=== PATIENT | male | born 1950 | race Caucasian/White ===

== ENCOUNTER 2019-09-03 12:03 | Outpatient (RCR) | payer MEDICARE, SELFPAY ==
[2019-09-03] VITALS (10 sets, daily range): BP systolic 100–128; BP diastolic 65–83; PULSE 91–103; RESP 14–16; TEMP 36.6–37.6; O2SAT 95–100
[2019-09-03 13:38] LABS: Hematocrit 24.1 % (42.0-52.0); Hemoglobin 7.2 g/dL (14.0-18.0)
[2019-09-03] MEDS: ACETAMINOPHEN 325 MG TABLET 650 MG (15:05)
[2019-09-03] MEDS: FUROSEMIDE INJ 40 MG/4 ML VIAL 20 MG IV PUSH (17:40)
== END 2019-12-02 23:59 | disposition home or self-care (01) ==
LOC: ANHCPCTRAN 12:03
PROVIDERS: Visit Provider Family Medicine
DX: D64.9 Anemia, unspecified (principal)
CPT/HCPCS: 36415; 36430; 85014; 85018; 86850; 86900; 86901; 86923; 96374; A9270; J1940; J7050; P9016

== ENCOUNTER 2023-08-02 08:59 | Outpatient (CLI) | payer MEDICARE, SELFPAY ==
--- NOTE | 2023-08-02 11:00 | NEURO_ITS ---
Impression: # Non-diabetic complains of gait dysfunction. 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 # Needle/EMG exam revealed no fibs but decreased motor units. # Clinical correlation recommended. Nerve Conduction Studies Anti Sensory Summary Table Stim Site NR Peak (ms) P-T Amp (?V) Site1 Site2 Delta-P (ms) Dist (cm) Michael (m/s) Left Saphenous Anti Sensory (Ant Med Mall) NO RESPONSE 14cm NR 14cm Ant Med Mall 0.0 Right Saphenous Anti Sensory (Ant Med Mall) NO RESPONSE 14cm NR 14cm Ant Med Mall 0.0 Left Sup Fibular Anti Sensory (Ant Lat Mall) NO RESPONSE 14 cm NR 14 cm Ant Lat Mall 16.0 Right Sup Fibular Anti Sensory (Ant Lat Mall) NO RESPONSE 14 cm NR 14 cm Ant Lat Mall 16.0 Left Sural Anti Sensory (Lat Mall) NO RESPONSE Calf NR Calf Lat Mall 16.0 Right Sural Anti Sensory (Lat Mall) NO RESPONSE Calf NR Calf Lat Mall 16.0 Motor Summary Table Stim Site NR Onset (ms) O-P Amp (mV) Site1 Site2 Delta-0 (ms) Dist (cm) Michael (m/s) Left Peroneal Motor (Vastus Med) Ankle 4.4 0.3 Popit Ankle 8.1 38.0 47 Popit 12.5 0.3 Right Peroneal Motor (Vastus Med) Ankle 4.2 1.2 Popit Ankle 8.9 39.0 44 Popit 13.1 0.9 Left Tibial Motor (Abd Ndiaye Brev) Ankle 4.9 2.2 Knee Ankle 9.6 38.0 40 Knee 14.5 0.9 Right Tibial Motor (Abd Ndiaye Brev) Ankle 4.3 3.9 Knee Ankle 10.1 41.0 41 Knee 14.4 1.5 F Wave Studies NR F-Lat (ms) L-R F-Lat (ms) Left Peroneal (Mrkrs) (EDB) 55.67 1.84 Right Peroneal (Mrkrs) (EDB) 53.83 1.84 Left Tibial (Mrkrs) (Abd Hallucis) 53.50 1.05 Right Tibial (Mrkrs) (Abd Hallucis) 54.55 1.05 EMG Side Muscle Nerve Root Ins Act Fibs Amp Dur Recrt Comment Right AntTibialis Dp Br Fibular L4-5 Nml Nml Nml Nml Nml Right Gastroc Tibial S1-2 Nml Nml Nml Nml Nml Right Fibularis Long Sup Br Fibular L5-S1 Nml Nml Nml Nml Nml Right Flex Dig Long Tibial L5-S2 Nml Nml Nml Nml Nml Right Ext Dig Brev Dp Br Fibular L5, S1 Nml Nml Nml Nml Nml Left AntTibialis Dp Br Fibular L4-5 Nml Nml Nml Nml Nml Left Gastroc Tibial S1-2 Nml Nml Nml Nml Nml Left Fibularis Long Sup Br Fibular L5-S1 Nml Nml Nml Nml Nml Left Flex Dig Long Tibial L5-S2 Nml Nml Nml Nml Nml Left Ext Dig Brev Dp Br Fibular L5, S1 Nml Nml Nml Nml Nml MTDD
== END 2023-08-02 09:00 | disposition home or self-care (01) ==
LOC: ANHNEURO 09:02
PROVIDERS: Visit Provider Podiatrist Foot & Ankle Surgery
DX: G62.9 Polyneuropathy, unspecified (principal)
CPT/HCPCS: 95886; 95911

== ENCOUNTER → 2023-08-28 10:47 | Outpatient (CLI) | payer MEDICARE, SELFPAY ==
--- NOTE | ~2023-08-28 | MR_ITS ---
EXAMINATION: MR cervical spine wo con DATE: 08/28/2023 11:36 INDICATION: Cervical radicular pain. Left neck pain. TECHNIQUE: Magnetic resonance imaging (MRI) of the cervical spine was performed without intravenous c ontrast. COMPARISON: None FINDINGS: There is kyphosis of cervical spine. There are changes of anterior fusion procedure from C4 to C6 with healed interbody bone graft. There is mild chronic anterior wedging of T1 vertebral body. There is moderately decreased disc height at C3-C4 and C6-C7. The spinal cord signal intensity is no rmal. The following disc levels are specifically discussed: C2-C3: There is a central extrusion. There is mild left uncovertebral joint osteoarthritis. There is severe bilateral facet joint osteoarthritis. There is mild right and moderate left neural foraminal s tenosis. There is mild central canal stenosis. C3-C4: The disc is bulging. There is severe bilateral uncovertebral joint osteoarthritis. There is se toni bilateral facet joint osteoarthritis. There is severe bilateral neural foraminal stenosis. There is moderate central canal stenosis. C4-C5: There is moderate bilateral uncovertebral joint hypertrophy. There is no facet joint osteoarth ritis. There is moderate bilateral neural foraminal stenosis. There is no central canal stenosis. C5-C6: There is mild right and severe left uncovertebral joint hypertrophy. There is no facet joint o steoarthritis. There is mild right and moderate left neural foraminal stenosis. There is no central c anal stenosis. C6-C7: The disc is bulging. There is severe bilateral uncovertebral joint osteoarthritis. There is mo derate bilateral facet joint osteoarthritis. There is moderate bilateral neural foraminal stenosis. T here is moderate central canal stenosis. C7-T1: The disc does not extend beyond the endplate margin. There is mild left uncovertebral joint os teoarthritis. There is severe bilateral facet joint osteoarthritis. There is mild right and moderate left neural foraminal stenosis. There is no central canal stenosis. IMPRESSION: 1. Moderate cervical spondylosis. 2. Anterior fusion from C4 to C6. Reviewed, dictated and finalized at location A. OSIVE MAN
--- NOTE | ~2023-08-28 | MR_ITS ---
EXAMINATION: MR lumbar spine wo con DATE: 08/28/2023 11:40 INDICATION: Lumbar radicular pain. TECHNIQUE: Magnetic resonance imaging (MRI) of the lumbar spine was performed without intravenous con trast. Sequences included sagittal T2-weighted FSE, sagittal T2-weighted FS FSE, sagittal T1-weighted FSE, and axial T2-weighted FSE. COMPARISON: None FINDINGS: There is 5 degrees levocurvature of the lumbar spine. There is 3 mm retrolisthesis of L1 on L2 and L2 on L3. Vertebral body heights are normal. There is mildly decreased disc height at T12-L1, L1-L2, L2-L3, and L5-S1. The distal spinal cord signal intensity is normal. The conus medullaris is at L1-L2. The following disc levels are specifically discussed: L1-L2: There is a left central extrusion. There is mild bilateral facet joint osteoarthritis. There i s no neural foraminal stenosis. There is mild central canal stenosis. L2-L3: The disc is bulging. There is severe bilateral facet joint osteoarthritis. There is moderate b ilateral neural foraminal stenosis. There is mild central canal stenosis. L3-L4: The disc does not extend beyond the endplate margin. There is moderate right and mild left fac et joint osteoarthritis. There is mild bilateral neural foraminal stenosis. There is no central canal stenosis. L4-L5: The disc is bulging. There is severe bilateral facet joint osteoarthritis. There is mild right and moderate left neural foraminal stenosis. There is mild central canal stenosis. L5-S1: The disc is bulging. There is severe bilateral facet joint osteoarthritis. There is mild bilat eral neural foraminal stenosis. There is mild central canal stenosis. IMPRESSION: 1. Moderate lumbar spondylosis. Reviewed, dictated and finalized at location A. CLERK
== END ==
PROVIDERS: PCP Nurse Practitioner Family; Visit Provider Nurse Practitioner Family
DX: M47.26 Other spondylosis with radiculopathy, lumbar region (principal); M47.22 Other spondylosis with radiculopathy, cervical region; Z98.1 Arthrodesis status
CPT/HCPCS: 72141; 72148

== ENCOUNTER 2024-10-18 09:43 | Outpatient (CLI) | payer MEDICARE, SELFPAY ==
--- OUTSIDE RECORDS SUMMARY | 2024-10-18 10:23 | XMS_ITS | CONTINUITY OF CARE DOCUMENT ---
Author Name wilbert atkins Address Unknown Organization [facility] Address [address] [place] [address] Phone [phone] Care Team Providers Care Nipple Threader Name Role Phone Archie Jimenez MD Unavailable Davy Joseph MD Unavailable [phone] Davy Joseph MD Unavailable [phone] PROBLEMS Condition Status Date Provider Notes Exposure to SARS-associated coronavirus active Sugar Hector Leg mass-R upper calf active Cristina Tanksle y Mixed hyperlipidemia active Meseret Cooper Long-Term Medications-High Risk active Meseret Cooper Diabetes mellitus active Meseret Cooper PVD active Archie Jimenez MD Cardiac murmur active Lawrence Maldonado MD Preoperative cardiovascular examination completed - Darion Chen MD ? SLEEP APNEA completed - Darion Chen MD Venous insufficiency, chronic active Archie Jimenez MD Shortness of breath active Archie Jimenez MD Dizziness active Heydi Waldron [employer]PER[employer] Edema active Archie Jimenez MD Aortic stenosis, severe active Archie Jimenez MD ENCOUNTERS Date Type Provider Location Encounter Diag nosis - In-person encounter Office Visit Archie Jimenez MD [facility] - In-person encounter Office Visit Archie Jimenez MD [facility] Aortic stenosis, severe - In-person encounter Office Visit Archie Jimenez MD [facility] - In-person encounter Office Visit Archie Jimenez MD [facility] - In-person encounter Office Visit Archie Jimenez MD [facility] Edema - In-person encounter Office Visit Archie Jimenez MD [facility] Dizziness - In-person encounter Office Visit Archie Jimenez MD [facility] Shortness of breath - In-person encounter Office Visit Archie Jimenez MD [facility] - In-person encounter Office Visit Archie Jimenez MD [facility] - In-person encounter Office Visit Archie Jimenez MD [facility] Venous insufficiency, chronic - In-person encounter Office Visit Archie Jimenez MD [facility] Preoperative cardiovascular examination? SLEEP APNEA - In-person encounter Office Visit Archie Jimenez MD [facility] - In-person encounter Office Visit Archie Jimenez MD [facility] - In-person encounter Office Visit ISABELLE OMALLEY MD [facility] - In-person encounter Office Visit ISABELLE OMALLEY MD [facility] - In-person encounter Office Visit Red Anne [facility] - In-person encounter Office Visit ISABELLE OMALLEY MD [facility] - In-person encounter Office Visit ISABELLE OMALLEY MD [facility] - In-person encounter Office Visit ISABELLE OMALLEY MD [facility] - In-person encounter Office Visit ISABELLE OMALLEY MD [facility] - In-person encounter Office Visit Lawrence Maldonado MD [facility] Cardiac murmur - In-person encounter Office Visit ISABELLE OMALLEY MD [facility] - In-person encounter Office Visit Red Omid [facility] - In-person encounter Office Visit Red Anne [facility] - In-person encounter Office Visit Lanaty Anne [facility] - In-person encounter Office Visit Lanaty Anne [facility] - In-person encounter Office Visit Lanaty Anne [facility] - In-person encounter Office Visit Lanaty Anne [facility] - In-person encounter Office Visit Red Anne [facility] - In-person encounter Office Visit Mihirtatumty Anne [facility] - In-person encounter Office Visit Red Anne [facility] - In-person encounter Office Visit Mihirtatumty Anne [facility] - In-person encounter Office Visit Red Anne [facility] - In-person encounter Office Visit Archie Jimenez MD [facility] PVD VITAL SIGNS Date Observation Value Provider Body Mass Index (Ratio) 26.83 kg/m2 Calixto Jimenez MD blood pressure, diastolic 79 mm[Hg] St pamela [place] blood pressure, systolic 167 mm[Hg] Dale Greenfield oxygen saturation, oximetry 95 % Maine Green[place] pulse rate 87 /min Maine Green[place] respiratory rate E&M 16 /min Maine haley weight E&M 187 [lb_av] Maine [place] height E&M 70 [in_i] Maineemmy Greenfield Body Mass Index (Ratio) 37.30 kg/m2 Calixto Jimenez MD blood pressure, diastolic 70 mm[Hg] Rh greg Lily blood pressure, systolic 117 mm[Hg] Rho ndnahum Bautista oxygen saturation, oximetry 98 % Gabriela Bautista pulse rate 94 /min Gabriela Bautista weight E&M 260 [lb_av] Gabrielanahum Bautista blood pressure, cuff size regular Rh onbety Lily respiratory rate E&M 16 /min Gabrielanahum Bautista height E&M 70 [in_i] Gabriela Bautista blood pressure, diastolic 70 mm[Hg] Cy endy Ortiz blood pressure, systolic 112 mm[Hg] Margarita anil Ortiz pulse rate 55 /min Naz isbell oxygen saturation, oximetry 100 % Naz Ortiz respiratory rate E&M 16 /min Naz Ortiz blood pressure, cuff size regular Cy endy Ortiz height E&M 70 [in_i] Naz Chungbel l temperature site temporal Cristina Tank [facility] temperature E&M 96.9 [degF] Cristina Tanks shireen Body Mass Index (Ratio) 35.87 kg/m2 Calixto Jimenez MD weight E&M 250 [lb_av] Naz Chungbel l blood pressure, diastolic 70 mm[Hg] Cy endy Ortiz blood pressure, systolic 118 mm[Hg] Margarita thia Angel blood pressure, cuff size regular Cy ntthonga Angel pulse rate 72 /min Naz Chungbel l oxygen saturation, oximetry 99 % Naz Ortiz respiratory rate E&M 18 /min Nazanil Ortiz height E&M 70 [in_i] Naz Marrero [place] temperature E&M 97.1 [degF] Cristina iyer Body Mass Index (Ratio) 33.57 kg/m2 Calixto Jimenez MD respiratory rate E&M 16 /min [facility] pulse rate 51 /[facility] 96 [facility], diastolic 78 mm[Hg] Dragan Zavala blood pressure, systolic 118 mm[Hg] Laly durán [facility] weight E&M 234 [lb_av] [facility] blood pressure, resting Yes Lalyr vance [facility] height E&M 70 [in_i] [facility] Body Mass Index (Ratio) 39.83 kg/m2 Calixto Jimenez MD blood pressure, diastolic 77 mm[Hg] Tank Hooperkarlie Jackson blood pressure, systolic 139 mm[Hg] Anna Rahul Manuel Inhaled O2 1 L/min Quan pang oxygen saturation, oximetry 95 % Quan Jackson respiratory rate E&M 20 /min Pearl Jackson pulse rate 72 /min Quan pang weight E&M 277.6 [lb_av] Quan adrian height E&M 70 [in_i] Quan pang Body Mass Index (Ratio) 39.74 kg/m2 Calixto Jimenez MD blood pressure, cuff size regular Ke yenifer Tabares blood pressure, diastolic 60 mm[Hg] Ke rri Raysa blood pressure, systolic 104 mm[Hg] Noel Tabares oxygen saturation, oximetry 93 % Socorro Raysa respiratory rate E&M 18 /min Socorro G megan pulse rate 73 /min Socorro Corkye lder weight E&M 277 [lb_av] Socorro Congjuane lder height E&M 70 [in_i] Socorro Parulewae lder Body Mass Index (Ratio) 39.17 kg/m2 Calixto Jimenez MD blood pressure, cuff size large Ke rri Raysa blood pressure, diastolic 80 mm[Hg] Ke rri Raysa blood pressure, systolic 120 mm[Hg] Noel Tabares oxygen saturation, oximetry 94 % Socorro Tabares respiratory rate E&M 18 /min Socorro guzman pulse rate 71 /min Socorro Jono lder weight E&M 273 [lb_av] Socorro Jono lder height E&M 70 [in_i] Socorro Jono lder Body Mass Index (Ratio) 38.59 kg/m2 Calixto Jimenez MD blood pressure, cuff size large Ke rri Raysa blood pressure, diastolic 70 mm[Hg] Ke rri Raysa blood pressure, systolic 112 mm[Hg] Noel ri Raysa oxygen saturation, oximetry 93 % Socorro Raysa respiratory rate E&M 18 /min Socorro G megan pulse rate 72 /min Socorro Parulnenfe lder weight E&M 269 [lb_av] Socorro Corkye lder height E&M 70 [in_i] Socorro Corkye lder Body Mass Index (Ratio) 39.45 kg/m2 Calixto Jimenez MD blood pressure, cuff size large Miranda Richmond blood pressure, diastolic 70 mm[Hg] Miranda Richmond blood pressure, systolic 130 mm[Hg] Nely Richmond oxygen saturation, oximetry 95 % Cyndie Richmond respiratory rate E&M 16 /min Cyndie Richmond pulse rate 65 /min Cyndie Richmond weight E&M 275 [lb_av] Cyndie Richmond height E&M 70 [in_i] Cyndielexy Richmond Body Mass Index (Ratio) 40.75 kg/m2 Calixto Jimenez MD blood pressure, cuff size large Nj nda Guerrero blood pressure, diastolic 70 mm[Hg] Nj nda Guerrero blood pressure, systolic 123 mm[Hg] [facility] 18 /min Leonora H arper pulse rate 71 /min Leonora Guerrero weight E&M 284 [lb_av] Leonora Guerrero height E&M 70 [in_i] Leonora Guerrero Body Mass Index (Ratio) 41.46 kg/m2 Calixto Jimenez MD blood pressure, diastolic 80 mm[Hg] Da smita Edilberto blood pressure, systolic 116 mm[Hg] Dac ia Edilberto oxygen saturation, oximetry 91 % Aubrie Edilberto respiratory rate E&M 20 /min Aubrie V oss pulse rate 69 /min Aubrie Edilberto weight E&M 289 [lb_av] Aubrie Edilberto height E&M 70 [in_i] Aubrie Edilberto blood pressure, diastolic 76 mm[Hg] Me beth Brizuela blood pressure, systolic 129 mm[Hg] Heena meryl Brizuela Body Mass Index (Ratio) 39.17 kg/m2 Megan Brizuela pulse rate 62 /min Debra Brizuela oxygen saturation, oximetry 95 % Debra Brizuela respiratory rate E&M 16 /min Debra Brizuela weight E&M 273 [lb_av] Debra Brizuela height E&M 70 [in_i] Debra Brizuela blood pressure, diastolic 67 mm[Hg] Driss Quezada RN blood pressure, systolic 125 mm[Hg] Kiet Quezada RN pulse rate 60 /min Kiet Quezada RN oxygen saturation, oximetry 96 % Kiet Quezada RN respiratory rate E&M 18 /min Kiet shine RN weight E&M 260 [lb_av] Kiet Quezada RN ALLERGIES Allergy Name Onset Date Reaction Criticality Status STEROIDS Low Criticality active RESULTS Date Observation Value Provider Reference Range Interpretation Location coagulation managed by Kiet Quezada RN international normalized ratio (INR) 1.2 [facility] Normal prothrombin time (patient) 14.1 s [facility] international normalized ratio (INR) 1.0 [facility] 0.9-1.1 prothrombin time (patient) 10.0 Seconds [facility] 9.0-11.5 very low density lipoproteins 49.6 mg/dL [facility] 5.0-40.0 High LDL/HDL (low-density lipoprotein/high-de nsity lipoprotein) ratio 1 mg/dL [facility] 0-5 lipoprotein, beta, serum, point, quantitative, calculated 62 mg/dL [facility] 0-100 HDL cholesterol, serum 47 mg/dL [facility] 35-55 cholesterol, serum 159 mg/dL [facility] 0-200 triglyceride, serum, fasting 248 mg/dL [facility] 0-150 High Estimated Glomerular Filtration Rate (calc) 40 (?) [facility] >59 Low chloride, serum 99 mmol/L [facility] 98-107 potassium, serum 4.6 mmol/L [facility] 3.5-5.1 sodium, serum 142 mmol/L [facility] [id number] 9531/09/ 29 creatinine, serum 1.8 mg/dL [facility] 0.7-1.2 High carbon dioxide, venous blood 30 mmol/L [facility] 23-31 albumin, serum 4.5 g/dL [facility] 3.5-5.2 calcium, serum 9.5 mg/dL [facility] 8.6-10.2 aspartate aminotransferase (SGOT), serum 16 1/L [facility] 0-40 alkaline phosphatase, serum 163 1/L [facility] 40-130 High alanine aminotransferase (SGPT), serum 14 1/L [facility] 0-41 protein, total, serum 6.9 g/dL [facility] 6.6-8.7 bilirubin, serum, total 0.4 mg/dL [facility] 0.0-1.2 urea nitrogen, blood 19 mg/dL [facility] 8-23 blood glucose, random 127 mg/dL [facility] 74-99 High platelet count 141 THOUSAND/U L [facility] [phone]/09/ 29 Absolute Basophils 0.0 CELLS/UL [facility] 0.0-0.2 Absolute Monocytes 0.4 CELLS/UL [facility] 0.2-1.0 Absolute Lymphocytes 0.75 CELLS/UL [facility] 0.85-3.90 Low Absolute Neutrophils 2.9 CELLS/UL [facility] 1.5-7.8 mean corpuscular volume, RBC 106 fL [facility] 75-100 High mean corpuscular hemoglobin concentration, RBC 31 G/DL [facility] 31-38 mean corpuscular hemoglobin, RBC 33 pg [facility] 25-35 hematocrit, blood 37 % [facility] 35-55 hemoglobin, blood 11.5 g/dL [facility] 11.5-16.5 erythrocyte count, whole blood 3.5 MILLION/UL [facility] 3.5-5.5 very low density lipoproteins 43.6 mg/dL [facility] 5.0 - 40.0 High LDL/HDL (low-density lipoprotein/high-de nsity lipoprotein) ratio 3.2 RATIO [facility] - lipoprotein, beta, serum, point, quantitative, calculated 132.4 (?) [facility] 0.0 - 100.0 High HDL cholesterol, serum 41.0 mg/dL [facility] 35.0 - 55.0 cholesterol, serum 217.0 mg/dL [facility] 0.0 - 200.0 High triglyceride, serum, fasting 218.0 mg/dL [facility] 0.0 - 150.0 High urea nitrogen/creatinine ratio, serum 11.5 [facility] - Estimated Glomerular Filtration Rate (calc) 58.5 (?) [facility] 59.0 - Low chloride, serum 101.0 mmol/L [facility] 98.0 - 107.0 potassium, serum 4.5 mmol/L [facility] 3.5 - 5.1 sodium, serum 146.0 mmol/L [facility] 136.0 - 145.0 High creatinine, serum 1.3 mg/dL [facility] 0.7 - 1.2 High carbon dioxide, venous blood 31.0 mmol/L [facility] 23.0 - 31.0 calcium, serum 8.9 mg/dL [facility] 8.6 - 10.2 urea nitrogen, blood 15.0 mg/dL [facility] 8.0 - 23.0 blood glucose, random 142.0 mg/dL [facility] 74.0 - 99.0 High red blood cell distribution width, size density 64.1 fL [facility] - immature granulocytes, percentage of total cells, blood 1.3 % [facility] - nucleated red blood cells as percent of blood leukocytes 0.6 % [facility] - red blood cell (erythrocyte) count, per high power field 0.0 10*3/UL [facility] - eosinophils as percent of blood leukocytes 3.4 % [facility] - neutrophils as percent of blood leukocytes 68.1 % [facility] - Absolute Neutrophils 3.3 CELLS/UL [facility] 1.5 - 7.8 basophils as percent of blood leukocytes 0.4 % [facility] - Absolute Basophils 0.0 CELLS/UL [facility] 0.0 - 0.2 monocytes as percent of blood leukocytes 8.4 % [facility] - Absolute Monocytes 0.4 CELLS/UL [facility] 0.2 - 1.0 lymphocytes as percent of blood leukocytes 18.4 % [facility] - Absolute Lymphocytes 0.9 CELLS/UL [facility] 0.9 - 3.9 mean platelet volume 11.2 (?) [facility] - platelet count 141.0 THOUSAND/U L [facility] 100.0 - 400.0 mean corpuscular hemoglobin concentration, RBC 30.6 G/DL [facility] 31.0 - 38.0 Low mean corpuscular hemoglobin, RBC 33.2 pg [facility] 25.0 - 35.0 mean corpuscular volume, RBC 108.6 fL [facility] 75.0 - 100.0 High hematocrit, blood 43.1 % [facility] 35.0 - 55.0 hemoglobin, blood 13.2 g/dL [facility] 11.5 - 16.5 erythrocyte count, whole blood 4.0 MILLION/UL [facility] 3.5 - 5.5 prothrombin time (patient) 10.4 s [facility] 9.0 - 11.5 international normalized ratio (INR) 0.9 [facility] 0.9 - 1.1 coagulation managed by Kiet Quezada RN prothrombin time (patient) 12.2 s Kiet Quezada RN international normalized ratio (INR) 1.0 Kiet Quezada RN Normal red blood cell distribution width, size density 57.9 fL [facility] - immature granulocytes, percentage of total cells, blood 0.4 % [facility] - nucleated red blood cells as percent of blood leukocytes 0.0 % [facility] - red blood cell (erythrocyte) count, per high power field 0.0 10*3/UL [facility] - eosinophils as percent of blood leukocytes 3.8 % [facility] - neutrophils as percent of blood leukocytes 69.1 % [facility] - Absolute Neutrophils 3.1 CELLS/UL [facility] 1.5 - 7.8 basophils as percent of blood leukocytes 0.4 % [facility] - Absolute Basophils 0.0 CELLS/UL [facility] 0.0 - 0.2 monocytes as percent of blood leukocytes 8.0 % [facility] - Absolute Monocytes 0.4 CELLS/UL [facility] 0.2 - 1.0 lymphocytes as percent of blood leukocytes 18.3 % [facility] - Absolute Lymphocytes 0.8 CELLS/UL [facility] 0.9 - 3.9 Low mean platelet volume 12.3 (?) [facility] - platelet count 119.0 THOUSAND/U L [facility] 100.0 - 400.0 mean corpuscular hemoglobin concentration, RBC 28.9 G/DL [facility] 31.0 - 38.0 Low mean corpuscular hemoglobin, RBC 27.8 pg [facility] 25.0 - 35.0 mean corpuscular volume, RBC 96.1 fL [facility] 75.0 - 100.0 hematocrit, blood 41.5 % [facility] 35.0 - 55.0 hemoglobin, [facility].0 [facility] - 16[facility]rocyte count, whole blood 4.3 [facility]ION/[facility] 3[facility] - 5.[facility] prothrombin time (patient) 10.1 s [facility] 9.0 - 11.5 international normalized ratio (INR) 1.0 [facility] 0.9 - 1.1 urea nitrogen/creatinine ratio, serum 9.4 [facility] - Estimated Glomerular Filtration Rate (calc) 46.3 (?) [facility] 59.0 - Low chloride, serum 97.5 mmol/[facility] - 107.0 Low potassium, serum 4.8 mmol/L [facility] 3[facility] - 5.1 sodium, serum 140.0 mmol/L [facility] 136.0 - 145.0 creatinine, serum 1.6 mg/dL [facility] 0.7 - 1.2 High carbon dioxide, venous blood 32.0 mmol/L [facility] 23.0 - 31.0 High calcium, serum 8.9 mg/dL [facility] 8.6 - 10.2 urea nitrogen, blood 15.0 mg/dL [facility] 8.0 - 23.0 Glucose Urine 80.0 mg/dL [facility] 74.0 - 99.0 red blood cell distribution width, size density 58.2 fL [facility] - immature granulocytes, percentage of total cells, blood 0.7 % [facility] - nucleated red blood cells as percent of blood leukocytes 0.0 % [facility] - red blood cell (erythrocyte) count, per high power field 0.0 10*3/UL [facility] - eosinophils as percent of blood leukocytes 2.8 % [facility] - neutrophils as percent of blood leukocytes 70.0 % [facility] - Absolute Neutrophils 4.2 CELLS/UL [facility] 1.5 - 7.8 basophils as percent of blood leukocytes 0.5 % [facility] - Absolute Basophils 0.0 CELLS/UL [facility] 0.0 - 0.2 monocytes as percent of blood leukocytes 8.6 % [facility] - Absolute Monocytes 0.5 CELLS/UL [facility] 0.2 - 1.0 lymphocytes as percent of blood leukocytes 17.4 % [facility] - Absolute Lymphocytes 1.1 CELLS/UL [facility] 0.9 - 3.9 mean platelet volume 11.7 (?) [facility] - platelet count 130.0 THOUSAND/U L [facility] 100.0 - 400.0 mean corpuscular hemoglobin concentration, RBC 28.8 G/DL [facility] 31.0 - 38.0 Low mean corpuscular hemoglobin, RBC 28.2 pg [facility] 25.0 - 35.0 mean corpuscular volume, RBC 98.0 fL [facility] 75.0 - 100.0 hematocrit, blood 44.5 % [facility] 35.0 - 55.0 hemoglobin, blood 12.8 g/dL [facility] 11.5 - 16.5 erythrocyte count, whole blood 4.5 MILLION/UL [facility] 3.5 - 5.5 hemoglobin A1C, blood, as % of total hemoglobin 5.8 % [facility] 4.0 - 6.0 thyroid stimulating hormone, serum 3.670 ?IU/ML [facility] 0.270 - 4.200 very low density lipoproteins 28.8 mg/dL [facility] 5.0 - 40.0 LDL/HDL (low-density lipoprotein/high-de nsity lipoprotein) ratio 3.0 RATIO [facility] - HDL cholesterol, serum 49.0 mg/dL [facility] 35.0 - 55.0 sum total cholesterol 223.0 mg/dL [facility] 0.0 - 200.0 High Triglycerides-direc t 144.0 mg/dL [facility] 0.0 - 150.0 anion gap, serum 14.1 [facility] - albumin/globulin ratio, serum 2.8 g/dL [facility] 1.1 - 2.5 High globulin, serum 2.6 [facility] 2.3 - 3.8 urea nitrogen/creatinine ratio, serum 16.4 [facility] - Estimated Glomerular Filtration Rate (calc) 71.4 (?) [facility] 59.0 - chloride, serum 99.9 mmol/L [facility] 98.0 - 107.0 potassium, serum 5.5 mmol/L [facility] 3.5 - 5.1 High sodium, serum 146.0 mmol/L [facility] 136.0 - 145.0 High creatine, serum 1.1 mg/dL [facility] 0.7 - 1.2 carbon dioxide, venous blood 32.0 mmol/L [facility] 23.0 - 31.0 High albumin, serum 4.4 g/dL [facility] 3.5 - 5.2 calcium, serum 9.3 mg/dL [facility] 8.6 - 10.2 aspartate aminotransferase (SGOT), serum 35.0 1/L [facility] 0.0 - 40.0 alkaline phosphatase, serum 110.0 1/L [facility] 40.0 - 130.0 alanine aminotransferase (SGPT), serum 32.0 1/L [facility] 0.0 - 41.0 protein, total, serum 7.0 g/dL [facility] 6.6 - 8.7 urea nitrogen, blood 18.0 mg/dL [facility] 8.0 - 23.0 Glucose Urine 98.0 mg/dL [facility] 74.0 - 99.0 bilirubin, serum, total 0.5 mg/dL [facility] 0.0 - 1.2 international normalized ratio (INR) 0.9 Debra Brizuela Normal prothrombin time (patient) 9.0 s Debra Brizuela prothrombin time (patient) 10.6 s Red Anne international normalized ratio (INR) 1.0 [place] anion gap, serum 8.3 [facility] estimated glomerular filtration rate >60 [facility] calcium, serum 9.0 mg/dL [facility] blood glucose, fasting 147 mg/dL [facility] creatinine, serum 1.22 mg/dL [facility] urea nitrogen, blood 11.7 mg/dL [facility] carbon dioxide, serum, total 33 mmol/L [facility] chloride, serum 104 mmol/L [facility] potassium, serum 4.3 mmol/L [facility] sodium, serum 141 mmol/L [facility] platelet count 101 10*3/uL [facility] red blood cell distribution width 14.4 % [facility] mean corpuscular hemoglobin concentration, RBC 31.8 g/dL Red Anne mean corpuscular hemoglobin, RBC 31.4 pg Red Anne mean corpuscular volume, RBC 98.6 fL [facility] hematocrit, blood 41.5 % [facility] hemoglobin, blood 13.2 g/dL [facility] erythrocyte (RBC) count 4.21 10*6/mm3 [facility] leukocyte count, blood 3.2 10*3/mm3 Red Anne HISTORY OF MEDICATION USE Medication Status Instructions Dates Provider Indications Com ments escitalopram oxalate 20 mg tablet active Archie Jimenez MD allopurinol 300 mg tablet active Archie Jimenez MD tamsulosin 0.4 mg capsule active Archie Jimenez MD amiodarone 200 mg tablet active Archie Jimenez MD warfarin 3 mg tablet active Archie Jimenez MD clopidogrel 75 mg tablet active Archie Jimenez MD atorvastatin 40 mg tablet completed - Archie Jimenez MD diclofenac sodium 75 mg tablet,delayed release (/EC) active Take 1 tablet by mouth once a day as needed Naz Ortiz furosemide 40 mg tablet active 1 tablet by mouth twice a day Archie Jimenez MD triamcinolone acetonide 0.1% cream active Apply to skin as needed Naz Ortiz doxycycline hyclate 100 mg capsule completed Take 1 capsule by mouth twice a day - Archie Jimenez MD #28, 14 days supply, Prescribed by DAVY JOSEPH, Filled 11/06/2019 cephalexin 500 mg capsule completed Take 1 capsule by mouth four times a day - Archie Jimenez MD #56, 14 days supply, Prescribed by DAVY JOSEPH, Filled 11/20/2019 spironolactone 25 mg tablet active Take 2 tablet by mouth once a day Archie Jimenez MD Eliquis 5 mg tablet completed Take 1 tablet once a day - Archie Jimenez MD HYDROCODONE-ACET AMINOPHEN 5-325 MG ORAL TABLET completed )ne tab by mouth prior to procedure - Elmer Zavala DIAZEPAM 5 MG ORAL TABLET completed One tab by mouth prior to procedure - Elmer Zavala CLOPIDOGREL BISULFATE 75 MG ORAL TABLET completed Take one tablet daily. - Elmer Zavala POTASSIUM CHLORIDE SARAH ER 20 MEQ ORAL TABLET EXTENDED RELEASE completed TK 1 T PO D - Elmer Zavala #90, 90 days supply, Prescribed by DAVY JOSEPH, Filled 02/21/2017 FUROSEMIDE 40 MG ORAL TABLET completed TAKE 1 TABLET PO QAM - Elmer Zavala #30, 30 days supply, Prescribed by DAVY JOSEPH, Filled 02/16/2017 DICLOFENAC SODIUM 75 MG ORAL TABLET DELAYED RELEASE completed TAKE 1 TABLET EVERY 12 HOURS PO NEEDED - Elmer Zavala #180, 90 days supply, Prescribed by DAVY JOSEPH, Filled 02/16/2017 levothyroxine 25 mcg tablet active Take 1 tablet by mouth once a day Socorro Tabares #90, 90 days supply, Prescribed by DAVY JOSEPH, Filled 02/16/2017 atorvastatin 40 mg tablet active tablet by mouth once a day Darion Chen MD CLOPIDOGREL BISULFATE 75 MG ORAL TABLET completed Take 1 Tab Daily - Elmer Zavala PRILOSEC 20 MG ORAL CAPSULE DELAYED RELEASE completed ONE TAB. DAILY - Elmer Zavala DICLOFENAC SODIUM 75 MG ORAL TABLET DELAYED RELEASE completed one tablet daily - ISABELLE OMALLEY MD HYDROCODONE-ACET AMINOPHEN 5-325 MG ORAL TABLET completed one tablet daily as needed - ISABELLE OMALLEY MD METRONIDAZOLE 0.75 % EXTERNAL CREAM completed FOR LOCAL USE TWICE DAILY - ISABELLE OMALLEY MD ORACEA 40 MG ORAL CAPSULE DELAYED RELEASE completed ONE TABLET IN THE MORNING ON AN EMPTY STOMACH - ISABELLE OMALLEY MD ASPIRIN 81 MG ORAL TABLET completed ONE TAB. DAILY - Elmer Zavala PLAVIX 75 MG ORAL TABLET completed ONE TAB. DAILY - Archie Jimenez MD atenolol 50 mg tablet completed 1 tablet by mouth once a day - Archie Jimenez MD SIMVASTATIN 20 MG ORAL TABLET completed ONE TAB. DAILY - ISABELLE OMALLEY MD DICLOFENAC SODIUM 75 MG ORAL TABLET DELAYED RELEASE completed 1 tablet daily - Kiet Quezada RN SOCIAL HISTORY Date Observation Value Provider social history E&M Marital Statu s: L natali with family/friends E thnicity: P atient is a former smoker. Smoking History: P atient is a former smoker. Archie Jimenez MD social history reviewed E&M revi ewed - no changes required Archie Jimenez MD seatbelt usage 100 % [place] physical exercise, f requency, days per week no [place] caffeine use, averag e drinks per day yes [place] passive cigarette sm nelly exposure no [place] smoking, year quit 2004 [place] number of years as a smoker 10 years or m ore [place] cigarette use yes [place] smoking status Former smoker [place] In the past 3 months , have you been waking up wanting to use drugs? (CAGE substance use question #4) N Archie Jimenez MD In the past 3 months , have you felt guilty or bad about using drugs? (CAGE substance use question #3) N Archie Jimenez MD In the past 3 months , has anyone annoyed you by telling you to cut down or stop using drugs? (CAGE substance use question #2) N Archie Jimenez MD In the past 3 months , have you felt you should cut down or stop using drugs?(CAGE substance use question #1) N Archie Jimenez MD alcohol use, average drinks per day 6 /d Archie Jimenez MD alcohol use, type beer Archie broussard MD alcohol use yes Archie Jimenez MD social history E&M Marital Statu s: L natali with family/friends E thnicity: P atprema is a former smoker. Smoking History: P atprema is a former smoker. Archie Jimenez MD social history reviewed E&M revi ewed - no changes required Archie Jimenez MD smoking status Former smoker Gabriela Lily social history E&M Marital Statu s: L natali with family/friends E thnicity: P atprema is a former smoker. Smoking History: P atient is a former smoker. Mauro Bee social history reviewed E&M revi ewed - no changes required Mauro Bee seatbelt usage 100 % Naz Lyndon esparza physical exercise, f requency, days per week no Anz Angel caffeine use, averag e drinks per day yes Naz Angel passive cigarette sm nelly exposure no Naz Angel smoking, year quit 2004 Naz garcia number of years as a smoker 10 years or m ore Naz Angel cigarette use yes Naz Patricia ll smoking status Former smoker Naz Chung baumann social history E&M Marital Statu s: L natali with family/friends E thnicity: P atprema is a former smoker. Smoking History: P atprema is a former smoker. Mauro Bee social history reviewed E&M revi ewed - no changes required Mauro Bee smoking status Former smoker Mauro Debbie skinner social history E&M Marital Statu s: L natali with family/friends E thnicity: P atient is a former smoker. Smoking History: P atient is a former smoker. Archie Jimenez MD social history reviewed E&M revi ewed - no changes required Archie Jimenez MD seatbelt usage 100 % Quan Bowles physical exercise, f requency, days per week no Quan Jackson alcohol counseling no Quan Jackson In the past 3 months , have you been waking up wanting to use drugs? (CAGE substance use question #4) Karlie Jackson In the past 3 months , have you felt guilty or bad about using drugs? (CAGE substance use question #3) Karlie Jackson In the past 3 months , has anyone annoyed you by telling you to cut down or stop using drugs? (CAGE substance use question #2) Karlie Jackson In the past 3 months , have you felt you should cut down or stop using drugs?(CAGE substance use question #1) N Quan Jackson alcohol use, average drinks per day 6 /d Quan Jackson alcohol use, type beer Quan Jackson alcohol use yes Quan You margauxon caffeine use, averag e drinks per day yes Quan Jackson passive cigarette sm nelly exposure no Quan Jackson smoking, year quit 2004 Quan Jackson number of years as a smoker 10 years or m ore Quan Jackson cigarette use yes Quan adrian smoking status Former smoker [place] social history reviewed E&M revi ewed - no changes required Archie Jimenez MD seatbelt usage 100 % [place] physical exercise, f requency, days per week no [place] Tabares alcohol counseling no Socorro severino In the past 3 months , have you been waking up wanting to use drugs? (CAGE substance use question #4) N [place] Tabares In the past 3 months , have you felt guilty or bad about using drugs? (CAGE substance use question #3) N [place] Tabares In the past 3 months , has anyone annoyed you by telling you to cut down or stop using drugs? (CAGE substance use question #2) N Socorro Tabares In the past 3 months , have you felt you should cut down or stop using drugs?(CAGE substance use question #1) N Socorro Tabares alcohol use, average drinks per day 6 /d Socorro Tabares alcohol use, type beer Socorro john alcohol use yes Socorro araya caffeine use, averag e drinks per day yes Socorro Garkiarajavierdigna passive cigarette sm nelly exposure no Socorro Frieddigna smoking, year quit 2003 [place] mere number of years as a smoker 10 years or m ore Socorro Frieddigna cigarette use yes Socorro Fried digna smoking status Former smoker Socorro Treanannelise javierdigna social history reviewed E&M revi ewed - no changes required Archie Jimenez MD seatbelt usage 100 % [place] Terannicole cox physical exercise, f requency, days per week no Socorro Frieddigna alcohol counseling no [place] Shel[place] mere In the past 3 months , have you been waking up wanting to use drugs? (CAGE substance use question #4) N Socorro Garbenny In the past 3 months , have you felt guilty or bad about using drugs? (CAGE substance use question #3) N Socorro Teranannelisejavierdigna In the past 3 months , has anyone annoyed you by telling you to cut down or stop using drugs? (CAGE substance use question #2) N Socorro Frieddigna In the past 3 months , have you felt you should cut down or stop using drugs?(CAGE substance use question #1) N Socorro Raysa alcohol use, average drinks per day 6 /d Socorro Frieddigna alcohol use, type beer Socorro Teran dora alcohol use yes Socorro Garbj araya caffeine use, averag e drinks per day yes Socorro Garbenny passive cigarette sm nelly exposure no Socorro Terandora smoking, year quit 2003 [place] mere number of years as a smoker 10 years or m ore Socorro Garbenny cigarette use yes Socorro sawyer smoking status Former smoker Socorro lundy social history reviewed E&M venecia singh - no changes required Archie Jimenez MD social history E&M Marital Statu s: Akilah hurst with family/friends E thnicity: Dada barnes is a former smoker. Smoking History: Dada barnes is a former smoker. Archie Jimenez MD seatbelt usage 100 % [place] cox physical exercise, f requency, days per week no [place] Tabares alcohol counseling no Socorro severino In the past 3 months , have you been waking up wanting to use drugs? (CAGE substance use question #4) N [place] Tabares In the past 3 months , have you felt guilty or bad about using drugs? (CAGE substance use question #3) N Socorro Tabares In the past 3 months , has anyone annoyed you by telling you to cut down or stop using drugs? (CAGE substance use question #2) N [place] Tabares In the past 3 months , have you felt you should cut down or stop using drugs?(CAGE substance use question #1) N [place] Tabares alcohol use, average drinks per day 6 /d Socorro Tabares alcohol use, type beer Socorro john alcohol use yes Socorro norris caffeine use, averag e drinks per day yes [place] Tabares passive cigarette sm nelly exposure no [place] Tabares smoking, year quit 2004 [place] severino number of years as a smoker 10 years or m ore [place] Tabares cigarette use yes Socorro sawyer smoking status Former smoker Socorro herreradigna social history reviewed E&M revi ewed - no changes required Archie Jimenez MD seatbelt usage 100 % Cyndie Richmond physical exercise, f requency, days per week no Cyndie Richmond alcohol counseling no Cyndie [facility] In the past 3 months , have you been waking up wanting to use drugs? (CAGE substance use question #4) N Cyndie Richmond In the past 3 months , have you felt guilty or bad about using drugs? (CAGE substance use question #3) N Cyndie Richmond In the past 3 months , has anyone annoyed you by telling you to cut down or stop using drugs? (CAGE substance use question #2) N Cyndie Richmond In the past 3 months , have you felt you should cut down or stop using drugs?(CAGE substance use question #1) N Cyndie Richmond alcohol use, average drinks per day 6 /d Cyndie Richmond alcohol use, type beer Cyndie [facility] alcohol use yes Cyndie [place] caffeine use, averag e drinks per day yes Cyndie [place] passive cigarette sm nelly exposure no Cyndie Richmond smoking, year quit 2004 Cyndie [facility] number of years as a smoker 10 years or m ore Cyndie Richmond cigarette use yes Cyndie Richmond smoking status Former smoker Cyndie Richmond social history reviewed E&M revi ewed - no changes required Archie Jimenez MD cigarette use yes Leonora Guerrero smoking status Former smoker Leonora Guerrero number of grandchildren Archie Jimenez MD U jalen Jimenez MD social history E&M Marital Statu s: L natali with family/friends E thnicity: P atprema is a former smoker. Smoking History: P atprema is a former smoker. Archie Jimenez MD social history reviewed E&M revi ewed - no changes required Archie Jimenez MD seatbelt usage 100 % [facility] physical exercise, f requency, days per week no [facility] alcohol counseling no [facility] s In the past 3 months , have you been waking up wanting to use drugs? (CAGE substance use question #4) N [facility] In the past 3 months , have you felt guilty or bad about using drugs? (CAGE substance use question #3) N [facility] In the past 3 months , has anyone annoyed you by telling you to cut down or stop using drugs? (CAGE substance use question #2) N [facility] In the past 3 months , have you felt you should cut down or stop using drugs?(CAGE substance use question #1) N [facility] alcohol use, average drinks per day 6 /d [facility] alcohol use, type beer [facility] alcohol use yes [facility] caffeine use, averag e drinks per day yes [facility] passive cigarette sm nelly exposure no [facility] smoking, year quit 2004 [facility] number of years as a smoker 10 years or m ore [facility] cigarette use yes [facility] smoking status Former smoker Archie Jimenez MD passive cigarette sm nelly exposure no Lawrence Maldonado MD seatbelt usage 100 % Lawrence Maldonado MD alcohol counseling no Lawrence rodriguez MD In the past 3 months , have you been waking up wanting to use drugs? (CAGE substance use question #4) N Lawrence Maldonado MD In the past 3 months , have you felt guilty or bad about using drugs? (CAGE substance use question #3) N Lawrence Maldonado MD In the past 3 months , has anyone annoyed you by telling you to cut down or stop using drugs? (CAGE substance use question #2) Karlie Maldonado MD In the past 3 months , have you felt you should cut down or stop using drugs?(CAGE substance use question #1) Karlie Maldonado MD alcohol use, type beer Lawrence johnson MD alcohol use, average drinks per day 6 /d Lawrence Maldonado MD alcohol use yes Lawrence Rios smoking, year quit 2003 Debra Char Cheney cigarette use yes Debra Brizuela smoking status Former smoker Debra peters social history E&M Marital Statu s: L natali with family/friends E thnicity: Kiet Quezada RN social history reviewed E&M reviewed Kiet Quezada RN physical exercise, f requency, days per week [facility] caffeine use, averag e drinks per day yes [facility] alcohol use, average drinks per day 1-[address] [facility] number of years as a smoker 10 years or m ore [facility] smoking status Quit [facility] FUNCTIONAL STATUS Date Observation Value Provider HRA, CV Assess/Plan, Angina (inactive) Management Plan continue current therapy Archie Jimenez MD HRA, CV Assess/Plan, Angina (inactive) Management Plan continue current therapy Archie Jimenez MD HRA, CV Assess/Plan, Angina (inactive) Management Plan continue current therapy Archie Jimenez MD HRA, CV Assess/Plan, Angina (inactive) Management Plan continue current therapy Archie Jimenez MD HRA, CV Assess/Plan, Angina (inactive) Management Plan continue current therapy Archie Jimenez MD HRA, CV Assess/Plan, Angina (inactive) Management Plan continue current therapy Archie Jimenez MD HRA, CV Assess/Plan, Angina (inactive) Management Plan continue current therapy Archie Jimenez MD HRA, CV Assess/Plan, Angina (inactive) Management Plan continue current therapy Archie Jimenez MD MENTAL STATUS Date Observation Value Provider assessment of judgme nt and insight E&M Alert and oriented to time, place and person. Mood and affect are normal. Kiet Quezada RN FAMILY HISTORY Family Member Condition Mother Negative FH of Coron zina Artery Disease INSURANCE PROVIDERS Payer name Policy type / Coverage type [place] [employer] party ID AARP MEDICARE ADVANTAGE HMO-POS HMO [id number] ADVANCE DIRECTIVES Name Date DISCUSSED - NO DECISION MADE TREATMENT PLAN Date Name Performer [id number],B,S/P FEVAR Mary Ellen Jimenez MD [id number],SArchie MD [id number],C,H e is S/P AVR and aortic root replacement Archie Jimenez MD [id number],W,W ill give a RPM BP today: 167/79 P rior BP: 117/70 (04/24/2020) Labs Reviewed: C reat: 1.8 (04/21/2017) C hol: 159 (04/21/2017) HDL: 47 (04/21/2017) T (04/21/2017) His updated medication list for this problem includes: Furosemide 40 Mg Oral Tablet (Furosemide) ..... One tab bid Spironolactone 25 Mg Oral Tablet (Spironolactone) ..... Take 2 tablets once daily Atenolol 50 Mg Oral Tablet (Atenolol) ..... One tab. daily Archie Jimenez MD [id number],SArchie MD Cardiology:S/P FEVAR Archie cook MD Cardiology Archie Jimenez MD Cardiology:He is S/P AVR and aor tic root replacement Archie Jimenez MD Cardiology:Will give a RPM BP today: 167/79 P rior BP: 117/70 (04/24/2020) Labs Reviewed: C reat: 1.8 (04/21/2017) C hol: 159 (04/21/2017) HDL: 47 (04/21/2017) T (04/21/2017) His updated medication list for this problem includes: Furosemide 40 Mg Oral Tablet (Furosemide) ..... One tab bid Spironolactone 25 Mg Oral Tablet (Spironolactone) ..... Take 2 tablets once daily Atenolol 50 Mg Oral Tablet (Atenolol) ..... One tab. daily Archie Jimenez MD Cardiology Archie Jimenez MD Cardiology:Per echo at E 07/2019. Has upcoming procedure for AAA that is scheduled to last 6 hours. Will consider doing GIL to evaluate this before clearing him for surgery. If is confirmed, we will have to determine if we should treat him for his prior to undergoing vascular surgery. Archie Jimenez MD Cardiology: H is updated medication list for this problem includes: Atenolol 50 Mg Oral Tablet (Atenolol) ..... One tab. daily Archie Jimenez MD Cardiology: B P today: 117/70 P rior BP: 112/70 (12/26/2019) Labs Reviewed: C reat: 1.8 (04/21/2017) C hol: 159 (04/21/2017) HDL: 47 (04/21/2017) T (04/21/2017) Archie Jimenez MD Cardiology Archie Jimenez MD Cardiology:Current m easurement is 6.5 per patient report Archie Jimenez MD Cardiology follow up :Will set him up with AIF with CO2 to look at R SFA stented region to see if he has an aneurysm and to look at the left leg because that appeared to have a stenosis on the noninvasive study. LEE 12/20/19 CONCLUSIONS: 1 . Mild arterial disease of the right lower extremity with mild stenosis in the distal SFA (velocities are mildly elevated). 2 . Severe arterial disease of the left lower extremity. Monophasic waveforms seen throughout. Probable significant Aortoiliac d isease vs. more proximal CRTS obstruction. Stents of the femoral and popliteal arteries are patent with no evidence of s ignificant in stent restenosis. 3 . Unable to obtain LEE due to significant swelling of legs and open ulcers. Mauro Bee Cardiology follow up : H is updated medication list for this problem includes: Atorvastatin Calcium 40 Mg Oral Tablet (Atorvastatin calcium) ..... Po daily Mauro Bee Cardiology follow up : B P today: 112/70 P rior BP: 118/70 (11/28/2019) Labs Reviewed: C reat: 1.8 (04/21/2017) C hol: 159 (04/21/2017) HDL: 47 (04/21/2017) T (04/21/2017) Mauro Bee Cardiology follow up :Noted on standing venous doppler from 12/20/19. Mauro Bee Cardiology Mauro Bee Cardiology Mauro Bee Cardiology:Per PCP Mauro isbell Cardiology: H is updated medication list for this problem includes: Atorvastatin Calcium 40 Mg Oral Tablet (Atorvastatin calcium) ..... Po daily Mauro Bee Cardiology: B P today: 118/70 P rior BP: 118/78 (01/01/2018) Labs Reviewed: C reat: 1.8 (04/21/2017) C hol: 159 (04/21/2017) HDL: 47 (04/21/2017) T (04/21/2017) Mauro Bee Cardiology:Pt has ac tive wounds on both legs. Will check an LEE and a standing venous doppler. Mauro Bee Cardiology:Will add furosemide 40 mg BID and will check his kidney function in about one week. Mauro Bee Cardiology:will check Rt LE dopp ler Heydi Waldron [employer] SUPERVISOR Cardiology:secondary to Hypotension. Will stop Diltiazem. Heydi Waldron NP Cardiology: B P today: 118/78 P rior BP: 139/77 (10/12/2017) Labs Reviewed: C reat: 1.8 (04/21/2017) C hol: 159 (04/21/2017) HDL: 47 (04/21/2017) T (04/21/2017) Heydi Waldron NP Cardiology: H is updated medication list for this problem includes: Atorvastatin Calcium 40 Mg Oral Tablet (Atorvastatin calcium) ..... Po daily Archie Jimenez MD Cardiology:S/p EVLT. E mariela remains in both legs. H e remains compliant with compression stockings. Archie Jimenez MD Cardiology:Primary s ymptom upon hospitalization. O n supplemental O2 at this time. Plans to lose weight. E cho showed EF 58%, moderate pulmonary hypertension with RVSP 60. P atient has recently started wearing trilogy device. Archie Jimenez MD Cardiology: B P today: 139/77 P rior BP: 104/60 (05/18/2017) Labs Reviewed: C reat: 1.8 (04/21/2017) C hol: 159 (04/21/2017) HDL: 47 (04/21/2017) T (04/21/2017) Archie Jimenez MD Cardiology Hospital Follow up : H is updated medication list for this problem includes: Clopidogrel Bisulfate 75 Mg Oral Tabs (Clopidogrel bisulfate) ..... Take one tablet daily. Aspirin 81 Mg Tabs (Aspirin) ..... One tab. daily Clopidogrel Bisulfate 75 Mg Oral Tabs (Clopidogrel bisulfate) ..... Take 1 tab daily Atenolol 50 Mg Tabs (Atenolol) ..... One tab. daily Archie Jimenez MD Cardiology Hospital Follow up :S/p AIF to Left leg with IVUS, atherectomy, stenting, and balloon angioplasty. Patient continues to have swelling, redness, and blistering on his Left LE. A dvised patient to wear compression stockings for now. Archie Jimenez MD Cardiology Hospital Follow up : B P today: 104/60 P rior BP: 120/80 (04/21/2017) Labs Reviewed: C reat: 1.8 (04/21/2017) C hol: 159 (04/21/2017) HDL: 47 (04/21/2017) T (04/21/2017) Archie Jimenez MD Cardiology Hospital Follow up Us merlin Jimenez MD Cardiology Follow up :Severe arterial disease of LLE and mild in RLE. W ill schedule AIF. Archie Jimenez MD Cardiology Follow up :Venous reflux doppler 04/19/17 showed venous insufficiency of Left saphenofemoral junction, Right GSV, and bilateral LSV bilateral. W ill schedule for EVLT for his LSV following his AIF. C ontinue compression stockings. Archie Jimenez MD Cardiology Follow up :Well controlled. BP today: 120/80 P rior BP: 112/70 (04/07/2017) Labs Reviewed: C reat: 1.3 (11/01/2016) C hol: 217.0 (11/01/2016) HDL: 41.0 (11/01/2016) T.0 (11/01/2016) Archie Jimenez MD Cardiology Follow u p :I will check a standing venous doppler. Has advised the patient to start wearing compression stockings since he now has a stent in his right SFA. Archie Jimenez MD Cardiology Follow up : B P today: 112/70 P rior BP: 130/70 (12/12/2016) Labs Reviewed: C reat: 1.3 (11/01/2016) C hol: 217.0 (11/01/2016) HDL: 41.0 (11/01/2016) T.0 (11/01/2016) Archie Jimenez MD Cardiology Follow up :s/p AIF. U jalen Jimenez MD Cardiology Hospital Follow up: H is updated medication list for this problem includes: Aspirin 81 Mg Tabs (Aspirin) ..... One tab. daily Clopidogrel Bisulfate 75 Mg Oral Tabs (Clopidogrel bisulfate) ..... Take 1 tab daily Atenolol 50 Mg Tabs (Atenolol) ..... One tab. daily Archie Jimenez MD Cardiology Hospital Follow up: B P today: 130/70 P rior BP: 123/70 (10/31/2016) Labs Reviewed: C reat: 1.3 (11/01/2016) C hol: 217.0 (11/01/2016) HDL: 41.0 (11/01/2016) T.0 (11/01/2016) Archie Jimenez MD Cardiology: B P today: 123/70 P rior BP: 116/80 (09/19/2016) Labs Reviewed: C reat: 1.6 (05/14/2015) H DL: 49.0 (03/27/2015) Archie Jimenez MD Cardiology:No chest pains. Archie Jimenez MD Cardiology:Will schedule patient for AIF. Archie Jimenez MD Cardiology follow up:Will check home sleep study Archie Jimenez MD Cardiology follow up:Will check echo Archie Jimenez MD Cardiology follow up:Will check LEE. Archie Jimenez MD Follow Up: H is updated medication list for this problem includes: Atenolol 50 Mg Tabs (Atenolol) ..... One tab. daily Aspirin 81 Mg Tabs (Aspirin) ..... One tab. daily Lawrence Maldonado MD Follow Up: O rders: A IF - XUAN (*) Lawrence Maldonado MD post stent placement Archie cook MD post stent placement Acrhie cook MD post stent placement :he is doing ok but is concerned about the possibility of nosebleeds . will stop the plavix and keep on asa 81 mg po once daily. H is updated medication list for this problem includes: Simvastatin 20 Mg Tabs (Simvastatin) ..... One tab. daily Atenolol 50 Mg Tabs (Atenolol) ..... One tab. daily Plavix 75 Mg Tabs (Clopidogrel bisulfate) ..... One tab. daily B P today: 125/67 Prior BP: / () N uclear Stress Findings: 1. Abnormal myocardial perfusion imaging after vasodilator stress with Regadenoson. 2 . Normal left ventricular systolic function with a calculated ejection fraction of 62%. 3 . Myocardial scintigraphy demonstrates moderate size partially reversible inferior wall defect consistent with ischemia. GC (03/30/2011) C ardiac Cath: Significant lesion both the LAD and the right. The patient was stented with two bare metal stents. The patient will receive aspirin and Plavix, and we will keep the patient overnight and discharge in t he morning. (04/13/2011) C ardiac Cath Comments: Successful stenting of the LAD with a 3.0 x 12mm and 3.0 x 15mm [facility] in the right. CH (04/13/2011) H gb: 13.2 (04/07/2011) HCT: 41.5 (04/07/2011) RBC: 4.21 (04/07/2011) WBC: 3.2 (04/07/2011) B UN: 11.7 (04/07/2011) Creat: 1.22 (04/07/2011) Glucose: 147 (04/07/2011) N a+: 141 (04/07/2011) K+: 4.3 (04/07/2011) Cl: 104 (04/07/2011) PT: 10.6 (04/07/2011) INR: 1.0 (04/07/2011) Archie Jimenez MD Date Name RPM (remote patient monitoring) COVID19 Rapid POC GIL - [facility] Venous Doppler Bilat eral LE - Reflux Arterial Duplex Bi-L ower EX Venous Doppler Unila teral RLE 6 minute walk test PROTHROMBIN TIME WIT H INR LIPID PANEL CBC (INCLUDES DIFF/P LT) COMPREHENSIVE METABO LIC PANEL, W/EGFR AIF - [facility] Arterial Duplex Bi-L ower EX Venous Doppler Bilat eral LE - Reflux LIPID PANEL BASIC METABOLIC PANE L W/EGFR CBC (INCLUDES DIFF/P LT) PROTHROMBIN TIME WIT H INR AIF - [facility] Sleep Study Home Complete Echo Arterial Duplex Bi-L ower EX PROTHROMBIN TIME WIT H INR CBC (INCLUDES DIFF/P LT) BASIC METABOLIC PANE L W/EGFR HEMOGLOBIN A1c TSH, 3RD GENERATION W/REFLEX TO FT4 LIPID PANEL CBC (INCLUDES DIFF/P LT) COMPREHENSIVE METABO LIC PANEL W/EGFR Complete Echo AIF - [facility] HISTORY OF PROCEDURES Procedure Date Procedure Name Provider Procedure Notes S tatus EKG Archie Jimenez MD completed SARS-CoV-2 (COVID-19) POC Archie Jimenez MD completed Protime Sunil laguerre MD completed EKG Archie Jimenez MD completed EKG Archie Jimenez MD completed Ambulatory Oximetry Archie Jimenez MD completed SNOMED-CT: 81471554 Physical Exam, Performed: Pulse Exam of Foot Archie Jimenez MD completed SNOMED-CT: 201472376861034 Current Medications Documented Archie Jimenez MD completed SNOMED-CT: 37208693 Physical Exam, Performed: Pulse Exam of Foot Archie Jimenez MD completed SNOMED-CT: 946307631099100 Current Medications Documented Archie Jimenez MD completed SNOMED-CT: [id number] Current Medications Documented Archie Jimenez MD completed SNOMED-CT: [id number] Current Medications Documented Archie Jimenez MD completed SNOMED-CT: [id number] Physical Exam, Performed: Pulse Exam of Foot Archie Jimenez MD completed SNOMED-CT: [id number] Current Medications Documented Archie Jimenez MD completed SNOMED-CT: [id number] Physical Exam, Performed: Pulse Exam of Foot Archie Jimenez MD completed EKG Archie Jimenez MD completed SNOMED-CT: [id number] Current Medications Documented Archie Jimenez MD completed EKG Lawrence Maldonado MD complete d ePrescribe - Check t his box if eRx is used ISABELLE OMALLEY MD completed
--- OUTSIDE RECORDS SUMMARY | 2024-10-18 10:23 | XMS_ITS | Clinical Summary ---
Author Organization [facility] Address [address] [place] [address] Care Team Providers Care Six Sigma Black Belt Engineer Name Role Phone Davy Joseph MD Primary Care Provider [phone] Davy Joseph MD Unavailable [phone] Archie Jimenez MD Unavailable Vita Zelaya MD Unavailable Allergies Active Allergy Reactions Criticality Noted Date Comments Prochlorperazine Shortness of breath High 04/07/2017 Reaction: SOB, Medications atorvastatin (LIPITOR) 40 mg tablet Take 1 tablet (40 mg total) by mouth nightly 30 tablet 08/19/19 Active Additional Information Patient taking differently:40 mg oralDaily (early AM), Indications: hyperlipidemia, Reported on 05/31/2022 spironolactone (ALDACTONE) 25 mg tablet Take 1 tablet (25 mg total) by mouth daily 30 tablet 08/20/19 20 Active Additional Information Patient taking differently:25 mg oralDaily (early AM), Indications: hypertension, Reported on 05/31/2022 cholecalciferol (VITAMIN D-3) 5,000 unit capsule Take 1 capsule (5,000 Units total) by mouth program director/air personality before breakfast Active allopurinoL (ZYLOPRIM) 300 mg tablet Take 1 tablet (300 mg total) by mouth daily 30 tablet 05/22/20 Active escitalopram (LEXAPRO) 20 mg tablet Take 1 tablet (20 mg total) by mouth daily 30 tablet 05/22/20 22 Active levothyroxine (SYNTHROID) 25 mcg tablet Take 1 tablet (25 mcg total) by mouth program director/air personality before breakfast 25 tablet 05/22/20 22 Active polyethylene glycol (MIRALAX) 17 gram packetIndications:c onstipation Take 1 packet (17 g total) by mouth daily as needed for constipation for up to 15 days 15 packet 05/21/20 22 Active traZODone (DESYREL) 50 mg tablet Take 50 mg by mouth nightly Active tamsulosin (FLOMAX) 0.4 mg extended release capsule Take 1 capsule (0.4 mg total) by mouth daily with dinner 30 capsule 06/15/20 22 Active clopidogreL (PLAVIX) 75 mg tabletIndications:P eripheral Arterial Thromboembolism Prevention Take 1 tablet (75 mg total) by mouth daily 90 tablet 1 06/15/20 22 Active metoprolol XL (TOPROL-XL) 25 mg extended release tablet Take 0.5 tablets (12.5 mg total) by mouth daily 15 tablet 11 06/15/20 22 Active betamethasone dipropionate (DEL-BETA) 0.05 % cream betamethasone dipropionate 0.05 % topical cream APPLY A THIN LAYER TOPICALLY TO THE AFFECTED AREA TWICE DAILY Active clobetasoL (TEMOVATE) 0.05 % cream clobetasol 0.05 % topical cream APPLY TOPICALLY TO THE AFFECTED AREA TWICE DAILY NEEDED Active diltiazem (TIAZAC) 120 mg 24 hr capsule diltiazem ER 120 mg capsule,24 hr,extended release Active fluticasone propionate (FLONASE) 50 mcg/actuation nasal spray fluticasone propionate 50 mcg/actuation nasal spray,suspension SHAKE LIQUID AND USE 2 SPRAYS IN EACH NOSTRIL EVERY DAY 09/02/19 21 Active gabapentin (NEURONTIN) 300 mg capsule gabapentin 300 mg capsule TK 1 C PO TID Active umeclidinium (INCRUSE ELLIPTA) 62.5 mcg/actuation blister with device Incruse Ellipta 62.5 mcg/actuation powder for inhalation Inhale 1 puff every day by inhalation route. Active apixaban (Eliquis) 5 mg tablet Take 1 tablet (5 mg total) by mouth 2 (two) times a day 01/15/20 24 Active busPIRone (BUSPAR) 10 mg tablet Take 1 tablet (10 mg total) by mouth 2 (two) times a day Active carbidopa-levodopa (SINEMET) 25-100 mg per tablet Take 1 tablet by mouth 3 (three) times a day 05/14/20 Active donepeziL (ARICEPT) 10 mg tablet Take 1 tablet (10 mg total) by mouth daily Active potassium chloride ER 20 mEq CR tablet Take 1 tablet (20 mEq total) by mouth daily Active torsemide (DEMADEX) 20 mg tablet Take 1 tablet (20 mg total) by mouth every morning Active vitamin D3-folic acid 125 mcg (5,000 unit)-1 mg tablet Take 1 tablet by mouth daily Active cyanocobalamin (Vitamin B-12) 1,000 mcg/mL injection Inject 1 mL (1,000 mcg total) under the skin every 30 (thirty) days 03/08/20 24 Active Active Problems Problem Noted Date Diagnosed Date Dementia 05/26/2024 Vitamin D deficiency 05/26/2024 Hyperlipidemia 05/26/2024 Hypertension 05/26/2024 Anxiety 05/26/2024 Gout 05/26/2024 Hypothyroidism 05/26/2024 Thrombocytopenia 05/26/2024 Malaise and fatigue 05/25/2024 COPD (chronic obstructive pulmonary disease) Assessment & Plan (06/17/2022 8:05 AM MARKET SUPERINTENDENT): - Currently on RA - CT on 06/09 with e/o volume overload, notable for pulmonary edema & bilateral pleural effusion, diuresed as above - Continue with aggressive pulmonary hygiene, C&DB, IS, OOBTC, ambulate. - Wean O2 for SpO2>92% - Home CPAP while sleeping - Strict I&O Abdominal pain 06/14/2022 Assessment & Plan (06/17/2022 8:07 AM MARKET SUPERINTENDENT): C/o abdominal pain 06/09 during the day, no reports of pain today, abdomen soft - 06/09 CTA triple phase: Revealed no e/o endoleak, no e/o bowel ischemia - CRS & GI consulted - GI: scope not indicated at this time --> will continue to follow - CRS: will continue to follow. Advance diet as tolerated - KUB 06/11: gas-filled but non-dilated small and large bowel is seen throughout the abdomen; no evidence of obstruction. CAD (coronary artery disease) 06/14/2022 Assessment & Plan (06/17/2022 8:06 AM MARKET SUPERINTENDENT): - Last cardiac stent ~3 yrs ago, follows with Dr. Mukherjee - Continue home ASA and statin - Continue home lasix & spironolactone - bridging to warfarin Urinary retention 06/14/2022 Assessment & Plan (06/17/2022 8:03 AM MARKET SUPERINTENDENT): - Unable to void after vaca removed on 06/11 - 06/11: Replaced Vaca and started on Flomax - Vaca removed 06/13 and has been voiding without difficulty - Bladder scan if c/f urinary retention - Strict I&O. Pleural effusion 05/14/2022 Assessment & Plan (06/17/2022 8:05 AM MARKET SUPERINTENDENT): - Noted during prior admission and required CT placed by Interventional Pulmonary on 05/12-06/16 - Interventional Pulmonary consulted 06/06 for pleural effusion - Underwent successful R thoracentesis with 605 ml of serosanginous fluid removed - 06/11 CXR with an unchanged right-sided volume loss/right lower lobe collapse, moderate bilateral pleural effusions with associated atelectasis is unchanged, no pneumothorax Assessment & Plan (06/15/2022 10:14 PM MARKET SUPERINTENDENT): R pleural effusion-POA Right thoracentesis 06/06 with 605 ml off. Repeat CXR today with now small R pleural effusion, no pulm edema. Lasix BID, decreasing to daily and extra dose PRN. Assessment & Plan (05/15/2022 9:52 AM CDT): Franki Yusuf is a 71 y.o. male with newly diagnosed severe aortic stenosis, pulmonary HTN, tobacco use admitted with altered mental status. We are consulted for his pleural effusion. We placed a chest tube into large right effusion on 05/12. His chest imaging shows improved aeration but round mass on CXR so we obtained repeat CT chest which shows rounded atelectasis. His pleural fluid studies are borderline and may reflect pseudoexudate in setting of long-standing effusion from his aortic stenosis and pulmonary hypertension. The fluid is NOT an empyema and is also not consistent with a complicated parapneumonic effusion (glucose nl). Cytology is still pending. We will plan to follow-up final cytology results and place chest tube to water seal. Once output is less than 100 cc / 24 hours, will remove the chest tube. We will schedule f/u in IP clinic with repeat CT chest in 2 months. Given lack of symptoms, would not advocate for decortication. - chest tube with ongoing significant drainage - continue chest tube to water seal and monitor output - daily CXR while chest tube in place Pneumonia 05/11/2022 Assessment & Plan (05/14/2022 9:48 AM CDT): - IP following for chest tube management, imaging shows improvement of effusion. Thoracic will sign off but readily available should concerns arise. Severe aortic stenosis 05/11/2022 Overview (05/16/2022): Added automatically from request for surgery [id number] Assessment & Plan (06/17/2022 8:05 AM MARKET SUPERINTENDENT): - 05/31: s/p bio AVR and ascending aortic replacement with Dr. Zelaya - GIL 05/31 on 0.03 epi gtt showed low normal LV function, normal RV function, mild MR, mild TR, and bioAVR with gradient 4. - Lasix 40mg BID + Spirolactone 25 daily - Strict I&O - TTE 06/15: LVEF 60%. No WMA noted. Aortic valve is mild moderately thickened with peak and mean gradients 28 and 17 mmHg c/w mild . Mild MR. PASP 42. LA is mildly dilated. Normal RV cavity size and function. Mild concentric LV hypertrophy. Normal IVC. Normal aorta. Assessment & Plan (06/15/2022 10:15 PM MARKET SUPERINTENDENT): S/p AVR 05/31/22 ECHO today with reported LVEF of 60%, mildly thickened AV with MG 17 and PG 28. Coumadin, as above. On aldactone and lasix Have messaged Dr. Zelaya's office and plan to see patient in clinic in 3-4 weeks for follow-up. The office will call the patient with appt details. Assessment & Plan (05/20/2022 5:49 PM CDT): Assessment and Plan: Franki Yusuf with multiple comorbidities as outlined above presented with syncope found to have severe , moderate AI, bicuspid aortic valve LVEF 50%. C with chronically occluded circ, mild disease in RCA, patent stents in LAD and RCA. Patient has NYHA II-III symptoms. Plan: Given his anatomy, including type 1 bicuspid AV, severe LVOT calcification, he is better severed with SAVR over TAVR. At the same time we will exclude his FLAVIO and possibly perform limited Maze operation for his AF. He is however a higher risk surgical candidate. Risks and benefits of surgery was discussed with the patient and his , and they both are in agreement to proceed. We will schedule him for surgery over the next 1-2 weeks. Surgery tentatively scheduled for 05/31 Carotid dopplers without significant disease IPAP consult Please obtain Panorex and dental clearance; this will need to occur prior to AVR. Tentatively planning for AVR on 05/31. Please obtain IPAP eval and Panorex/dental evaluation prior to possible discharge. Will defer discharge clearance to cardiology. CTS will continue to follow SOB (shortness of breath) 08/10/2019 History of AAA (abdominal aortic aneurysm) repai r 08/10/2019 Assessment & Plan (06/17/2022 8:22 AM MARKET SUPERINTENDENT): - 05/16: CT with infrarenal abdominal aortic aneurysm [address] - 06/07: s/p four vessel modified FEVAR with celiac & SMA stents - NV checks q4hr to BLE -BP control as elsewhere - Bridging to Coumadin with heparin infusion (PTT goal 40-60); no boluses. Recheck INR at noon, if >1.8can dc - Monitor UOP - Bowel regimen - Pain control - OOB - PT/OT Anemia 08/10/2019 NSTEMI (non-ST elevated myocardial infarction) 0 08/10/2019 Septic shock 08/10/2019 Streptococcal arthritis of left knee 08/10/2019 EDWARD (acute kidney injury) 08/10/2019 Atrial fibrillation 08/10/2019 Assessment & Plan (06/17/2022 8:07 AM MARKET SUPERINTENDENT): - Holding home eliquis - heparin gtt to bridge to coumadin per Dr. Zelaya - PO amiodarone started while in the ICU, holding home metoprolol. Held previously in the setting of hypotension. Per CTS, decrease amio to 200mg daily - CTS ok with home today if INR > 1.8, will recheck at noon Assessment & Plan (06/15/2022 10:12 PM MARKET SUPERINTENDENT): POA S/p partial Maze 05/31 Check EKG; EKG today with SR, QTC stable at 529 Plan to decrease to 200mg PO daily to be continued for at least 1mo post-op. Currently SR with 1st AVB on tele. Coumadin started on 06/12. Has been on heparin bridge while inpatient. Per discussion with Dr. Zelaya, patient should remain inpatient on a heparin gtt bridge until INR is 1.8. When 1.8, okay to discharge with close INR follow-up. PCP to manage INR/coumadin dosing. Complex renal cyst 08/10/2019 Multiple wounds of skin 08/10/2019 Diastolic congestive heart failure 08/10/2019 Stage 2 chronic kidney disease 08/10/2019 Assessment & Plan (06/17/2022 8:05 AM MARKET SUPERINTENDENT): - CrCl 50 - Continue home medications as able - Strict I&O - Daily BMP. Assessment & Plan (06/15/2022 10:13 PM MARKET SUPERINTENDENT): CKD 3 Has been on lasix PO BID. Cr today up to 1.37 (from b/l of ~1.1) ECHO today. Plan to decrease to lasix 40mg daily and can take an extra PRN for fluid retention. Peripheral vascular disease 03/23/2011 Resolved Problems Problem Noted Date Diagnosed Date Resolved Date Juxtarenal abdominal aortic aneurysm (AAA) without rupture 05/11/2022 06/17/2022 Overview (05/18/2022): Added automatically from request for surgery [id number] AAA (abdominal aortic aneury sm) without rupture 03/10/2020 06/17/2022 Overview (03/10/2020): Added automatically from request for surgery [id number] Assessment & Plan (06/15/2022 10:13 PM MARKET SUPERINTENDENT): S/p FEVAR with vascular Per vascular service. Plavix started today. Encounters Date Type Department Care Team Description 09/19/2024 Telephone [facility] Cardiothoracic Surgery [address] [facility] 8th Floor [address] Room [address] [place] [phone] Magnus ShandaSMILEY 08/20/2024 Documentation [facility] Cardiothoracic Surgery [address] [facility] 8th Floor [address] Room [address] [place], [place] [phone] Shelly Combs RN from Last 3 Months Immunizations Immunization Administration Dates Next Due Influenza, Quadrivalent, Hig h Dose, Preservative Free, Intrr 06/17/2022(Deferred: Patient Refused - pt stated already recieved flu shot in March along with COVID booster) Medical History Medical History Date Comments Atrial fibrillation (HCC) COPD (chronic obstructive pulmonary disease) (HC C) Hyperlipidemia HTN (hypertension) Hypothyroid PVD (peripheral vascular disease) with stents Sleep apnea Gallstones AAA (abdominal aortic aneurysm) Family History Medical History Relation Name Comments Heart disease Father Relation Name Status Comments Father Social History Tobacco Use Types Packs/Day Years Used Date Smoking Tobacco: Former Cigarettes 2 50 1 954 - 2004 Smokeless Tobacco: Never Tobacco Cessation:Counseling Given: Not Answered Alcohol Use Standard Drinks/Week Comments Yes 0 (1 standard drink = 0.6 oz pur e alcohol) rare AUDIT-C Answer Date Recorded Q1: How often do you have a drink containing alc ohol? 2-4 times a month 06/07/2022 Q2: How many drinks containi ng alcohol do you have on a typical day when you are drinking? 3 or 4 06/07/2022 Q3: How often do you have si x or more drinks on one occasion? Monthly 06/07/2022 Personal Safety Answer Date Recorded Have you ever been in or are you currently in a harmful physical or emotional relationship or is someone making you feel afraid or unsafe? Denies 06/26/2024 Sex and Gender Information Value Date Recorded Sex Assigned at Not on file Legal Sex Male 8:15 PM MARKET SUPERINTENDENT Gender Identity Not on file Sexual Orientation Not on file Obstetrics History Last Filed Vital Signs Vital Sign Reading Time Taken Comments Blood Pressure 129/60 06/26/2024 8:10 PM MARKET SUPERINTENDENT Pulse 71 06/26/2024 8:10 PM MARKET SUPERINTENDENT Temperature 37 C (98.6 F) 06/26/2024 2:07 PM MARKET SUPERINTENDENT Respiratory Rate 16 06/26/2024 8:10 PM MARKET SUPERINTENDENT Oxygen Saturation 99% 06/26/2024 8:10 PM MARKET SUPERINTENDENT Inhaled Oxygen Concentration - - Weight 78.5 kg (173 lb) 06/26/2024 2:07 PM MARKET SUPERINTENDENT Height 177.8 cm (5' 10 ) 06/26/2024 2:07 PM MARKET SUPERINTENDENT Body Mass Index 24.82 06/26/2024 2:07 PM MARKET SUPERINTENDENT Plan of Treatment Health Maintenance Due Date Last Done Comments Colon Cancer Screening-Colonoscopy 1950 Depression Screening 1950 Hepatitis C Screening 1950 DTaP/Tdap/Td Vaccine (1 - Tdap) 1960 Hepatitis B Screening 10/25/1967 Zoster Vaccine (1 of 2) 10/25/1999 Well Visit 65+ 2014 Covid-19 Vaccine (5 - 2023-2 5 season) 2024 03/16/2022, 05/04/2021, 10/16/2020, Additional history exists Influenza Vaccine (#1) 2024 , 05/13/2021, 05/16/2019, Additional history exists Fall Risk Assessment 05/27/2025 05/27/2024 Pneumococcal vaccine 65+ Completed 03/20/2019, 08/25 Abdominal Aortic Aneurysm (A AA) Screen Completed 06/29/2022, 06/23/2022, 06/23/2022, Additional history exists Medical Devices Implanted Type Area Outreach Worker Device Identifier Shelf Expiration Date Model / Serial / Lot Wander (f. YongoPal) Inc Zenith Alpha Captor Od32 Mm [id number] Mm L160 Mm 2 Piece Distal Component Self Expand 2 Lock Mechanism Thoracic Od7.1 Mm Cylindrical Graft Endovascular Nitinol Polypropylene Polyester Fabric Hydrophilic Sterile Accepts .0 [id number] - S00 - [id number] Implanted:Qty: 1 on 06/07/2022 by Higinio Oleary MD at [facility] Endoprosthesis N/A: Aorta [employer] 04/05/2025 [id number] / 00 / [id number] Description:Distal Wl [employer] Stent Endoprosthesis 29mm 7mm 11mm 7fr Carey Viabahn 135cm [id number] - [id number] - [id number] Implanted:Qty: 1 on 06/07/2022 by Higinio Oleary MD at [facility] Endoprosthesis Right: Abdomen Wl [employer] [id number] 02/07/2025 [id number] / [id number] Description:SMA Bard Peripheral Vascular 6x6in Patch Thk1.65mm [place] Cardiovascular Ptfe Sterile Latex Free [id number] - Sna - [id number] Implanted:Qty: 1 on 05/31/2022 by Vita Zelaya MD at [facility] Graft N/A: Heart Bard Peripheral Vascular 12/18/2026 [id number] / NA / Terumo Cardio Vascular Gelweave 28mm 30cm Suture Retention Unique Hydrolyzable Abdomen [id number] - [id number] - [id number] Implanted:Qty: 1 on 05/31/2022 by Vita Zelaya MD at [facility] Graft N/A: Heart Terumo Cardio Vascular [id number] 11/20/2024 [id number] / [id number] / [id number] Sharma Lifesciences Magna Ease 25mm [id number] - [id number] - [id number] Implanted:Qty: 1 on 05/31/2022 by Vita Zelaya MD at [facility] Graft N/A: Heart Sharma [employer]iences [id number] 11/24/2025 [id number] 25MM / [id number] / Maquet Inc [id number] Hemashield 6x1in Woven Thk.46mm Fabric Cardiovascular - [id number] - [id number] Implanted:Qty: 1 on 05/31/2022 by Vita Zelaya MD at [facility] Graft N/A: Heart GET[employer]E [employer] [id number] 09/20/2025 [id number] / [id number] / [id number] Wl Carey [employer] Associates Inc 4-7mm 45cm 10cm Removable Ring Line Standard Psychiatric Clinical Nurse Specialist Graft [id number] - [id number] - [id number] Implanted:Qty: 1 on 06/07/2022 by Higinio Oleary MD at [facility] Graft N/A: Abdomen Wl [employer] [id number] 05/02/2026 [id number] / [id number] / Wl [employer] Inc Carey Excluder C3 35mm 14.5mm 30-32mm 12-13.5mm 14cm Delivery [id number] - [id number] - [id number] Implanted:Qty: 1 on 06/07/2022 by Miguel Ángel Ceja MD at [facility] Graft N/A: Aorta Wl [employer] Inc [id number] 08/22/2024 [id number] 14 / [id number] / Wl [employer] Carey Excluder 12mm 14cm Contralateral Leg Graft Endovascular [id number] - [id number] - [id number] Implanted:Qty: 1 on 06/07/2022 by Miguel Ángel Ceja MD at [facility] Graft Left: Iliac Wl [employer] Inc [id number] 09/29/2024 [id number] 00 / [id number] / Plascencia Vascular Amplatzer 10mm 7mm 100cm Type Ii Delivery System Optimal Latex Free 9-Avp2-010 - S00 - [id number] Implanted:Qty: 1 on 06/07/2022 by Higinio Oleary MD at [facility] Other - see comments N/A: Celiac Trunk Plascencia Vascular [id number] 01/20/2027 9AVP2- 010 / 00 / [id number] Description:plug Plascencia Vascular Perclose 6fr Vascular Closure 03822-94 - S00 - [id number] Implanted:Qty: 2 on 06/07/2022 by Higinio Oleary MD at [facility] Other - see comments Left: Femoral [employer] V[employer] [id number] 11/21/2023 56326-9 3041 Cook [employer] Inc Coil Embolization [place] Microcoil [place] Od4-2mm .018 In Catheter [id number] - S00 - [id number] Implanted:Qty: 1 on 06/07/2022 by Higinio Oleary MD at [facility] Other - see comments N/A: Aorta [employer] [id number] 06/27/2024 [id number] / 00 / [id number] Description:Embolization simran rocoil Used for graft modification Stent Tracheobronchial Covered 0.035in Guidewire Icast [id number] Stainless Steel [id number] - [id number] - [id number] Implanted:Qty: 1 on 06/07/2022 by Higinio Oleary MD at [facility] Stent N/A: Abdomen [employer] [id number] 04/05/2025 71055 / [id number] / Description:CELIAC Stent Tracheobronchial Covered 0.035in Guidewire Icast [id number] Stainless Steel [id number] - [id number] - [id number] Implanted:Qty: 1 on 06/07/2022 by Higinio Oleary MD at [facility] Stent Left: Renal [employer] [id number] 02/03/2024 [id number] / [id number] / Stent Tracheobronchial Covered 0.035in Guidewire Icast [id number] Stainless Steel 84724 - [id number] - [id number] Implanted:Qty: 1 on 06/07/2022 by Higinio Oleary MD at [facility] Stent Right: Renal [employer] [id number] 01/08/2024 05646 / [id number] / Procedures Procedure Name Priority Date/Time Associated Diagnosis Comments CT CHEST W AND ABDOMEN PELVIS W WO CONTRAST (C) Critical/Life-Th reatening 06/09/2022 7:16 AM MARKET SUPERINTENDENT from Last 3 Months or Most Recently Relevant to Health Maintenance Results * CT Chest W and Abdomen Pelvis W WO Contrast (C) (06/09/2022 7:16 AM MARKET SUPERINTENDENT) Anatomical Region Laterality Modality Body N/A Computed Tomogra phy 06/09/2022 7:46 AM MARKET SUPERINTENDENT Impressions 06/09/2022 7:46 AM MARKET SUPERINTENDENT 1. Postsurgical changes of recent median sternotomy, aortic valve replacement, and super coronary ascending aortic replacement, with expected small volume gas and fluid in the mediastinum. 2. Postsurgical changes of recent fenestrated endovascular abdominal aortic aneurysm stent grafting, with patent visceral stents and no evidence of endoleak. 3. No evidence of bowel ischemia. No evidence of active extravasation within the chest, abdomen, or pelvis 4. Findings of volume overload including pleural effusions with mild pulmonary edema, trace ascites, and mild body wall edema. 5. Pleural enhancement the right hemithorax and differential enhancement of the atelectatic right lower lobe, concerning for superimposed underlying pneumonia. Electronically signed by: Kale Hernandez M.D. Narrative 06/09/2022 7:46 AM MARKET SUPERINTENDENT EXAMINATION: 1. Computed tomography of the chest with intravenous contrast 2. Computed tomography of the abdomen and pelvis with and without intravenous contrast HISTORY: 71-year-old postoperative day 9 from aortic valve replacement and ascending aorta repair and postoperative day 2 from fenestrated endovascular abdominal aortic aneurysm repair, now with abdominal pain. TECHNIQUE: Transaxial computed tomographic images of the abdomen and pelvis were obtained without intravenous contrast, followed by images of the chest, abdomen and pelvis, after the uneventful administration of 121 mL Opti-Ray 350 intravenous contrast according to the ischemic bowel/GI bleed and chest protocol protocol. COMPARISON: 05/13/2022, 05/11/2022 FINDINGS: Chest: Small pleural effusions, with similar appearance of pleural enhancement and thickening on the right, concerning for possible superimposed infection. Unchanged pleural calcifications on the left, which may represent sequela of prior infection or asbestos exposure. Mosaic attenuation within the lungs, which represents sequela small airways disease superimposed mild pulmonary edema. Mild emphysematous changes within the lung apices. Passive atelectasis within dependent portion of the lungs. No suspicious pulmonary nodule. Relative hypoattenuation of the collapsed right lower lobe as compared to the left, which may represent superimposed pneumonia. Postsurgical changes of recent median sternotomy, aortic valve replacement, and super coronary aortic arch replacement, small volume gas and fluid in the anterior mediastinum within expected limits. Reactive appearing mediastinal borderline enlarged lymph nodes are present. No axillary supraclavicular, or hilar lymphadenopathy. Unchanged mild cardiomegaly with enlargement of the atria. Subtle areas of possible fatty metaplasia within the atrial septum, which may represent sequela of prior infarct, with associated atherosclerotic calcifications of the coronary arteries, most severe of the left anterior descending coronary artery. Abdomen/Pelvis: Liver is normal in size and contour. No suspicious focal hepatic lesion. No intra or extrahepatic biliary ductal dilatation. Mild periportal edema. The portal, splenic, superior mesenteric veins are patent. Small volume dependent layering sludge within the gallbladder, which is otherwise normal. Pancreas, spleen, and adrenal glands are normal. Kidneys enhance symmetrically with multifocal areas of scarring, similar in appearance to prior. Urinary bladder is decompressed with a Vaca catheter. Small bowel and colon are normal in caliber, without evidence of obstruction or ischemia. No active intraluminal extravasation to suggest acute GI bleed. Appendix is normal. Esophagus, stomach, and duodenum are normal. No organized abdominal or pelvic fluid collection. Trace ascites, which measures simple free fluid. Mild body wall edema. No abdominal or pelvic lymphadenopathy. Postoperative changes of recent endovascular aortic repair, with endoluminal aortobiiliac stent. The proximal portion of the stent terminates at the level of the diaphragmatic hiatus, the distal portion of the stent terminate within the right common iliac artery and left external iliac artery. Patent visceral stents are present within the celiac, superior mesenteric, and renal arteries. An Amplatz occluder is seen within the proximal left internal iliac artery. Small volume gas within the excluded sac is within expected postoperative findings. No evidence of endoleak. No aggressive osseous lesion. Nondisplaced left posterior ninth and 10th rib fractures. Procedure Note Kale Hernandez MD PhD - 06/09/2022 EXAMINATION: 1. Computed tomography of the chest with intravenous contrast 2. Computed tomography of the abdomen and pelvis with and without intravenous contrast HISTORY: 71-year-old postoperative day 9 from aortic valve replacement and ascending aorta repair and postoperative day 2 from fenestrated endovascular abdominal aortic aneurysm repair, now with abdominal pain. TECHNIQUE: Transaxial computed tomographic images of the abdomen and pelvis were obtained without intravenous contrast, followed by images of the chest, abdomen and pelvis, after the uneventful administration of 121 mL Opti-Ray 350 intravenous contrast according to the ischemic bowel/GI bleed and chest protocol protocol. COMPARISON: 05/13/2022, 05/11/2022 FINDINGS: Chest: Small pleural effusions, with similar appearance of pleural enhancement and thickening on the right, concerning for possible superimposed infection. Unchanged pleural calcifications on the left, which may represent sequela of prior infection or asbestos exposure. Mosaic attenuation within the lungs, which represents sequela small airways disease superimposed mild pulmonary edema. Mild emphysematous changes within the lung apices. Passive atelectasis within dependent portion of the lungs. No suspicious pulmonary nodule. Relative hypoattenuation of the collapsed right lower lobe as compared to the left, which may represent superimposed pneumonia. Postsurgical changes of recent median sternotomy, aortic valve replacement, and super coronary aortic arch replacement, small volume gas and fluid in the anterior mediastinum within expected limits. Reactive appearing mediastinal borderline enlarged lymph nodes are present. No axillary supraclavicular, or hilar lymphadenopathy. Unchanged mild cardiomegaly with enlargement of the atria. Subtle areas of possible fatty metaplasia within the atrial septum, which may represent sequela of prior infarct, with associated atherosclerotic calcifications of the coronary arteries, most severe of the left anterior descending coronary artery. Abdomen/Pelvis: Liver is normal in size and contour. No suspicious focal hepatic lesion. No intra or extrahepatic biliary ductal dilatation. Mild periportal edema. The portal, splenic, superior mesenteric veins are patent. Small volume dependent layering sludge within the gallbladder, which is otherwise normal. Pancreas, spleen, and adrenal glands are normal. Kidneys enhance symmetrically with multifocal areas of scarring, similar in appearance to prior. Urinary bladder is decompressed with a Vaca catheter. Small bowel and colon are normal in caliber, without evidence of obstruction or ischemia. No active intraluminal extravasation to suggest acute GI bleed. Appendix is normal. Esophagus, stomach, and duodenum are normal. No organized abdominal or pelvic fluid collection. Trace ascites, which measures simple free fluid. Mild body wall edema. No abdominal or pelvic lymphadenopathy. Postoperative changes of recent endovascular aortic repair, with endoluminal aortobiiliac stent. The proximal portion of the stent terminates at the level of the diaphragmatic hiatus, the distal portion of the stent terminate within the right common iliac artery and left external iliac artery. Patent visceral stents are present within the celiac, superior mesenteric, and renal arteries. An Amplatz occluder is seen within the proximal left internal iliac artery. Small volume gas within the excluded sac is within expected postoperative findings. No evidence of endoleak. No aggressive osseous lesion. Nondisplaced left posterior ninth and 10th rib fractures. IMPRESSION: 1. Postsurgical changes of recent median sternotomy, aortic valve replacement, and super coronary ascending aortic replacement, with expected small volume gas and fluid in the mediastinum. 2. Postsurgical changes of recent fenestrated endovascular abdominal aortic aneurysm stent grafting, with patent visceral stents and no evidence of endoleak. 3. No evidence of bowel ischemia. No evidence of active extravasation within the chest, abdomen, or pelvis 4. Findings of volume overload including pleural effusions with mild pulmonary edema, trace ascites, and mild body wall edema. 5. Pleural enhancement the right hemithorax and differential enhancement of the atelectatic right lower lobe, concerning for superimposed underlying pneumonia. Electronically signed by: Kale Hernandez M.D. Ayla Panchal CARD MOUNTER IMG CT PROCEDURES Michela l Result from Last 3 Months or Most Recently Relevant to Health Maintenance Insurance [facility] Address: [facility] [address] [place] [address] [facility] HMO REF [facility] Address: [address] [address] [place] [address] [facility] Address: [address] [address] [place] [id number] [facility] Address: [address] [address] [place] [address] [facility] MED[facility] ADVANTAGE [facility] Address: [address] [address] Advance Directives For more information, please contact: [phone] * Full Code (Latest Code Status on File) Date Activated Date Inactivated Comments 05/25/2024 11:17 PM 05/27/2024 7:05 PM * Full Code Date Activated Date Inactivated Comments 05/25/2024 9:22 PM 05/25/2024 11:17 PM * Full Code Date Activated Date Inactivated Comments 06/01/2022 12:00 AM 06/17/2022 8:40 PM * Full Code Date Activated Date Inactivated Comments 06/01/2022 12:00 AM 06/01/2022 12:00 AM * Full Code Date Activated Date Inactivated Comments 05/11/2022 7:53 PM 05/21/2022 7:47 PM Care Teams Six Sigma Black Belt Engineer Relationship Specialty Start Date End Date Davy Joseph MD PCP - General Internal Medicine 05/11/22 Davy Joseph MD Internal Medicine 05/11/22 Archie Jimenez MD Consulting Physician Cardiovascular Disease 08/19/19 Vita Zelaya MD [id number] [place] [address] Surgeon Cardiothoracic Surgery 06/15/22
--- OUTSIDE RECORDS SUMMARY | 2024-10-18 10:23 | XMS_ITS ---
Author Organization [facility] Care Team Providers Care Secretary Bookkeeper Name Role Phone Tiago Zavala Unavailable Unavailable Care Team Name Role Address Phone Organization Dates Tiago Sally PCP [address] [place], [address], [place] (Office): : [facility] 08/19/2019 - 09/16/2019 Mental Status Section Date Assessment Total Score Description 09/16/2019 BIMS 15 cognitively int act CAM 0 No delirium ind icated PHQ-9 00 08/26/2019 BIMS 15 cognitively int act CAM 0 No delirium ind icated PHQ-9 00 Problems Problem # Description Date of onset Resolved Date Code CodeSystem Concern Status 1 ABDOMINAL AORTIC ANEURYSM, WITHOUT RUPTURE 08/19/[address] active 2 ACUTE KIDNEY FAILURE, UNSPECIFIED 08/19/[address] active 3 ALCOHOL ABUSE, UNCOMPLICATED 08/19/[address] active 4 ANEMIA, UNSPECIFIED 08/19/[address] active 5 CALCULUS OF GALLBLADDER WITHOUT CHOLECYSTITIS WITHOUT OBSTRUCTION 08/19/[address] active 6 CHRONIC OBSTRUCTIVE PULMONARY DISEASE, UNSPECIFIED 08/19/[address] active 7 ESSENTIAL (PRIMARY) HYPERTENSION 08/19/[address] active 8 HYPOTHYROIDISM, UNSPECIFIED 08/19/[address] active 9 MORBID (SEVERE) OBESITY DUE TO EXCESS CALORIES 08/19/[address] active 10 OTHER HYPERLIPIDEMIA 08/19/[address] active 11 PAROXYSMAL ATRIAL FIBRILLATION 08/19/[address] active 12 PERIPHERAL VASCULAR DISEASE, UNSPECIFIED 08/19/[address] active 13 SLEEP APNEA, UNSPECIFIED 08/19/[address] active Reason for Referral No Reasons for Referral Entered Social History Social History Observation Description Start Date End Date Code Code System Current Smoking Status Tobacco smoking consumption unknown 305409639 SNOMED CT Sex Assigned At Male 1950 [address]1 [facility]
--- OUTSIDE RECORDS SUMMARY | 2024-10-18 10:24 | XMS_ITS | Referral Summary ---
Author Organization [facility] Address [address] [place] [address] Care Team Providers Care J2Ee Programmer Name Role Phone Davy Joseph MD Primary Care Provider [phone] Davy Joseph MD Unavailable [phone] Archie Jimenez MD Unavailable Vita Zelaya MD Unavailable Encounters Date Type Department Care Team Description 09/19/2024 Telephone [facility] Cardiothoracic Surgery [address] [facility] Advanced Medicine 8th Floor [address] [place] [phone] Shanda AgudeloSMILEY 08/20/2024 Documentation [facility] Cardiothoracic Surgery [address] [facility] Advanced Medicine 8th Floor [address] [place] [phone] Shelly Combs RN from Last 3 Months Allergies Active Allergy Reactions Criticality Noted Date Comments Prochlorperazine Shortness of breath High 04/07/2017 Reaction: SOB, Medications atorvastatin (LIPITOR) 40 mg tablet Take 1 tablet (40 mg total) by mouth nightly 30 tablet 08/19/19 20 Active Additional Information Patient taking differently:40 mg oralDaily (early AM), Indications: hyperlipidemia, Reported on 05/31/2022 spironolactone (ALDACTONE) 25 mg tablet Take 1 tablet (25 mg total) by mouth daily 30 tablet 08/20/19 20 Active Additional Information Patient taking differently:25 mg oralDaily (early AM), Indications: hypertension, Reported on 05/31/2022 cholecalciferol (VITAMIN D-3) 5,000 unit capsule Take 1 capsule (5,000 Units total) by mouth fitness and wellness director before breakfast Active allopurinoL (ZYLOPRIM) 300 mg tablet Take 1 tablet (300 mg total) by mouth daily 30 tablet 05/22/20 22 Active escitalopram (LEXAPRO) 20 mg tablet Take 1 tablet (20 mg total) by mouth daily 30 tablet 05/22/20 22 Active levothyroxine (SYNTHROID) 25 mcg tablet Take 1 tablet (25 mcg total) by mouth fitness and wellness director before breakfast 25 tablet 05/22/20 22 Active [...] the skin every 30 (thirty) days 03/08/20 Active Active Problems Problem Noted Date Diagnosed Date Dementia 05/26/2024 Vitamin D deficiency 05/26/2024 Hyperlipidemia 05/26/2024 Hypertension 05/26/2024 Anxiety 05/26/2024 Gout 05/26/2024 Hypothyroidism 05/26/2024 Thrombocytopenia 05/26/2024 Malaise and fatigue 05/25/2024 COPD (chronic obstructive pulmonary disease) Assessment & Plan (06/17/2022 8:05 AM SERVICES MANAGER): - Currently on RA - CT on 06/09 with e/o volume overload, notable for pulmonary edema & bilateral pleural effusion, diuresed as above - Continue with aggressive pulmonary hygiene, C&DB, IS, OOBTC, ambulate. - Wean O2 for SpO2>92% - Home CPAP while sleeping - Strict I&O Abdominal pain 06/14/2022 Assessment & Plan (06/17/2022 8:07 AM SERVICES MANAGER): C/o abdominal pain 06/09 during the day, [...] 06/14/2022 Assessment & Plan (06/17/2022 8:06 AM SERVICES MANAGER): - Last cardiac stent ~3 yrs ago, follows with Dr. Mukherjee - Continue home ASA and statin - Continue home lasix & spironolactone - bridging to warfarin Urinary retention 06/14/2022 Assessment & Plan (06/17/2022 8:03 AM SERVICES MANAGER): - Unable to void after vaca removed on 06/11 - 06/11: Replaced Vaca and started on Flomax - Vaca removed 06/13 and has been voiding without difficulty - Bladder scan if c/f urinary retention - Strict I&O. Pleural effusion 05/14/2022 Assessment & Plan (06/17/2022 8:05 AM SERVICES MANAGER): - Noted during prior admission and required CT placed by Interventional Pulmonary on 05/12-06/16 - Interventional Pulmonary consulted 06/06 for pleural effusion - Underwent successful R thoracentesis with 605 ml of serosanginous fluid removed - 06/11 CXR with an unchanged right-sided volume loss/right lower lobe collapse, moderate bilateral pleural effusions with associated atelectasis is unchanged, no pneumothorax Assessment & Plan (06/15/2022 10:14 PM SERVICES MANAGER): R pleural effusion-POA Right thoracentesis 06/06 with [...] (05/16/2022): Added automatically from request for surgery [id number] Assessment & Plan (06/17/2022 8:05 AM SERVICES MANAGER): - 05/31: s/p bio AVR and ascending [...] aorta. Assessment & Plan (06/15/2022 10:15 PM SERVICES MANAGER): S/p AVR 05/31/22 ECHO today with reported [...] moderate AI, bicuspid aortic valve LVEF 50%. [facility] with chronically occluded circ, mild disease in [...] 08/10/2019 Assessment & Plan (06/17/2022 8:22 AM SERVICES MANAGER): - 05/16: CT with infrarenal abdominal aortic [...] 08/10/2019 Assessment & Plan (06/17/2022 8:07 AM SERVICES MANAGER): - Holding home eliquis - heparin gtt to bridge to coumadin per Dr. Zelaya - PO amiodarone started while in the ICU, holding home metoprolol. Held previously in the setting of hypotension. Per CTS, decrease amio to 200mg daily - CTS ok with home today if INR > 1.8, will recheck at noon Assessment & Plan (06/15/2022 10:12 PM SERVICES MANAGER): POA S/p partial Maze 05/31 Check EKG; [...] 08/10/2019 Assessment & Plan (06/17/2022 8:05 AM SERVICES MANAGER): - CrCl 50 - Continue home medications as able - Strict I&O - Daily BMP. Assessment & Plan (06/15/2022 10:13 PM SERVICES MANAGER): CKD 3 Has been on lasix PO [...] (05/18/2022): Added automatically from request for surgery [id number] AAA (abdominal aortic aneury sm) without rupture 03/10/2020 06/17/2022 Overview (03/10/2020): Added automatically from request for surgery [id number] Assessment & Plan (06/15/2022 10:13 PM SERVICES MANAGER): S/p FEVAR with vascular Per vascular service. Plavix started today. Immunizations Immunization Administration Dates Next Due Influenza, Quadrivalent, Hig h Dose, Preservative Free, Intrr 06/17/2022(Deferred: Patient Refused - pt stated already recieved flu shot in March along with COVID booster) Social History Tobacco Use Types Packs/Day Years [...] on file Legal Sex Male 8:15 PM SERVICES MANAGER Gender Identity Not on file Sexual Orientation Not on file Last Filed Vital Signs Vital Sign Reading Time Taken Comments Blood Pressure 129/60 06/26/2024 8:10 PM SERVICES MANAGER Pulse 71 06/26/2024 8:10 PM SERVICES MANAGER Temperature 37 C (98.6 F) 06/26/2024 2:07 PM SERVICES MANAGER Respiratory Rate 16 06/26/2024 8:10 PM SERVICES MANAGER Oxygen Saturation 99% 06/26/2024 8:10 PM SERVICES MANAGER Inhaled Oxygen Concentration - - Weight 78.5 kg (173 lb) 06/26/2024 2:07 PM SERVICES MANAGER Height 177.8 cm (5' 10 ) 06/26/2024 2:07 PM SERVICES MANAGER Body Mass Index 24.82 06/26/2024 2:07 PM SERVICES MANAGER Plan of Treatment Not on file Medical Devices Implanted Type Area Enrober Device Identifier Shelf Expiration Date Model / Serial / Lot [employer] Zenith Alpha Captor Od32 Mm [id number] [id number] Mm 2 Piece Distal Component Self Expand 2 Lock Mechanism Thoracic Od7.1 Mm Cylindrical Graft Endovascular Nitinol Polypropylene Polyester Fabric Hydrophilic Sterile Accepts .0 [id number] - S00 - [id number] Implanted:Qty: 1 on 06/07/2022 by Higinio Oleary MD at [facility] Endoprosthesis N/A: Aorta [employer] 04/05/2025 [id number] / 00 / [id number] Description:Distal Wl [employer]open[employer] Associates Inc Stent Endoprosthesis 29mm 7mm 11mm 7fr Lopeno Viabahn 135cm [id number] - [id number] - [id number] Implanted:Qty: 1 on 06/07/2022 by Higinio Oleary MD at [facility] Endoprosthesis Right: Abdomen Wl [employer] [id number] 02/07/2025 [id number] / [id number] Description:SMA Bard Peripheral Vascular 6x6in Patch Thk1.65mm [place] Cardiovascular Ptfe Sterile Latex Free [id number] - Sna - [id number] Implanted:Qty: 1 on 05/31/2022 by Vita Zelaya MD at [facility] Graft N/A: Heart Bard Peripheral Vascular 12/18/2026 [id number] / NA / Terumo Cardio Vascular Gelweave 28mm 30cm Suture Retention Unique Hydrolyzable Abdomen [id number] - [id number] - [id number] Implanted:Qty: 1 on 05/31/2022 by Vita Zelaya MD at [facility] Graft N/A: Heart Terumo Cardio Vascular [id number] 11/20/2024 [id number] / [id number] / [id number] Sharma Lifesciences Magna Ease 25mm [id number] - [id number] - [id number] Implanted:Qty: 1 on 05/31/2022 by Vita Zelaya MD at [facility] Graft N/A: Heart Sharma [employer]iences [id number] 11/24/2025 [id number] 25MM / [id number] / Maquet Inc [id number] Hemashield 6x1in Woven Thk.46mm Fabric Cardiovascular - [id number] - [id number] Implanted:Qty: 1 on 05/31/2022 by Vita Zelaya MD at [facility] Graft N/A: Heart [employer] [id number] 09/20/2025 [id number] / [id number] / [id number] Wl Lopeno & Associates Inc 4-7mm 45cm 10cm Removable Ring Line Standard Gravity Prospecting Observer Helper Graft [id number] - [id number] - [id number] Implanted:Qty: 1 on 06/07/2022 by Higinio Oleary MD at [facility] Graft N/A: Abdomen Wl [employer] Inc [id number] 05/02/2026 [id number] / [id number] / Wl [employer]open[employer] Inc Lopeno Excluder C3 35mm 14.5mm 30-32mm 12-13.5mm 14cm Delivery [id number] - [id number] - [id number] Implanted:Qty: 1 on 06/07/2022 by Miguel Ángel Ceja MD at [facility] Graft N/A: Aorta Wl [employer] Inc [id number] 08/22/2024 [id number] / [id number] / Wl [employer] Inc Lopeno Excluder 12mm 14cm Contralateral Leg Graft Endovascular [id number] - [id number] - [id number] Implanted:Qty: 1 on 06/07/2022 by Miguel Ángel Ceja MD at [facility] Graft Left: Iliac Wl [employer] [id number] 09/29/2024 [id number] / Plascencia Vascular Amplatzer 10mm 7mm 100cm Type Ii Delivery System Optimal Latex Free 9-Avp2-010 - S00 - [id number] Implanted:Qty: 1 on 06/07/2022 by Higinio Oleary MD at [facility] Other - see comments N/A: Celiac Trunk Plasc[employer] V[employer] [id number] 01/20/2027 9-AVP2- 010 / 00 / [id number] Description:plug Plascencia Vascular Perclose 6fr Vascular Closure 12659-41 - S00 - [id number] Implanted:Qty: 2 on 06/07/2022 by Higinio Oleary MD at [facility] Other - see comments Left: Femoral Plasc[employer] V[employer] [id number] 11/21/2023 66903-3 [id number] [employer] Coil Embolization Tornado Microcoil Hettick Od4-2mm .018 In Catheter V70623 - S00 - [id number] Implanted:Qty: 1 on 06/07/2022 by Higinio Oleary MD at [facility] Other - see comments N/A: Aorta [employer] [id number] 06/27/2024 [id number] / 00 / [id number] Description:Embolization simran rocoil Used for graft modification Stent Tracheobronchial Covered 0.035in Guidewire Icast [id number] Stainless Steel 10223 - [id number] - [id number] Implanted:Qty: 1 on 06/07/2022 by Higinio Oleary MD at [facility] Stent N/A: Abdomen [employer] [id number] 04/05/2025 78274 / [id number] / Description:CELIAC Stent Tracheobronchial Covered 0.035in Guidewire Icast [id number] Stainless Steel 83965 - [id number] - [id number] Implanted:Qty: 1 on 06/07/2022 by Higinio Oleary MD at [facility] Stent Left: Renal [employer] [id number] 02/03/2024 09629 / [id number] / Stent Tracheobronchial Covered 0.035in Guidewire Icast [id number] Stainless Steel 58335 - [id number] - [id number] Implanted:Qty: 1 on 06/07/2022 by Higinio Oleary MD at [facility] Stent Right: Renal [employer] [id number] 01/08/2024 80766 / [id number] / Procedures Procedure Name Priority Date/Time Associated Diagnosis Comments CT CHEST W AND ABDOMEN PELVIS W WO CONTRAST (C) Critical/Life-Th reatening 06/09/2022 7:16 AM SERVICES MANAGER from Last 3 Months or Most Recently Relevant to Health Maintenance Results * CT Chest W and Abdomen Pelvis W WO Contrast (C) (06/09/2022 7:16 AM SERVICES MANAGER) Anatomical Region Laterality Modality Body N/A Computed Tomogra phy 06/09/2022 7:46 AM SERVICES MANAGER Impressions 06/09/2022 7:46 AM SERVICES MANAGER 1. Postsurgical changes of recent median sternotomy, [...] Kale Hernandez M.D. Narrative 06/09/2022 7:46 AM SERVICES MANAGER EXAMINATION: 1. Computed tomography of the chest [...] signed by: Kale Hernandez M.D. Ayla Panchal NP IMG CT PROCEDURES Michela l Result from Last 3 Months or Most Recently Relevant to Health Maintenance Insurance [facility] Address: [address] [place], [place] [phone] [facility] Address: [place] [phone] [employer] MEDICARE ADVANTAGE [facility] Address: [address] [address] [place] [address] [facility] Address: [address] [place], [place] [phone] [facility] Address: [address] [place] [address] Advance Directives For more information, please contact: [phone] * Full Code (Latest Code Status on [...] 7:53 PM 05/21/2022 7:47 PM Care Teams J2Ee Programmer Relationship Specialty Start Date End Date Davy Joseph MD PCP - General Internal Medicine 05/11/22 Davy Joseph MD Internal Medicine 05/11/22 Archie Jimenez MD Consulting Physician Cardiovascular Disease 08/19/19 Vita Zelaya MD [id number] [place] [address] Surgeon Cardiothoracic Surgery 06/15/22
--- OUTSIDE RECORDS SUMMARY | 2024-10-18 10:24 | XMS_ITS | Clinical Summary ---
Author Organization [facility] Facility Address [address] [address] Care Team Providers Care Green Building Architect Name Role Phone Opal Bhatti MD Primary Care Provider [phone] Social History Tobacco Use Types Packs/Day Years Used Date Smoking Tobacco: Former Sex and Gender Information Value Date Recorded Sex Assigned at Not on file Legal Sex Male 2:51 PM EDT Gender Identity Not on file Sexual Orientation Not on file Last Filed Vital Signs Vital Sign Reading Time Taken Comments Blood Pressure 108/58 03/10/2020 12:00 PM CDT Pulse 96 03/10/2020 12:00 PM CDT Temperature 36.6 C (97.9 F) 03/10/2020 12:00 PM CDT Respiratory Rate 20 03/10/2020 12:00 PM CDT Oxygen Saturation 94% 03/10/2020 12:00 PM CDT Inhaled Oxygen Concentration - - Weight 118 kg (260 lb) 03/10/2020 12:00 PM CDT Height 175.3 cm (5' 9 ) 03/10/2020 12:00 PM CDT Body Mass Index 38.4 03/10/2020 12:00 PM CDT Plan of Treatment Health Maintenance Due Date Last Done Comments Colorectal Cancer Screening: Annual FOBT 1998 Colorectal Cancer Screening: Colonoscopy 1998 Colorectal Cancer Screening: Sigmoidoscopy 1998 Diabetes: Hemoglobin A1C 12/17/2020 Diabetes: Ophthalmology Exam 12/17/2020 Diabetes: Pedal Pulse Checked 12/17/2020 Diabetes: Sensory Foot Exam 12/17/2020 Diabetes: Visual Foot Exam 12/17/2020 Influenza Vaccine (#1) 2024 9, 04/18/2018, 06/10/2017, Additional history exists Pneumococcal Vaccine: 65+ Years Completed 03/20/2019, 09/14/2016 Hepatitis B Vaccine Aged Out No longe r eligible based on patient's age to complete this topic Insurance [facility] Care Teams Green Building Architect Relationship Specialty Start Date End Date Opal Bhatti MD [address] [place] [address] PCP - General Internal Medicine 03/30/21
--- OUTSIDE RECORDS SUMMARY | 2024-10-18 10:24 | XMS_ITS | Data Portability ---
Author Organization [facility] [employer], Main Office Address [address] [place] [address] Care Team Providers Care Lugger Name Role Phone SARATH JOSEPH Primary Care Provider SARATH JOSEPH Referring Provider [phone] JUDITH VILLANUEVA Manager Contracting Assessment No assessment recorded. Plan of Treatment Reminders Order Date Submit Date Provider Last Modified By Organization Details Last Modified Time Details Appointments Any 15 2024 11:15A M Sarath Joseph MD Not available Not available Not available Lab uric acid, serum or plasma 2024 025 [email or web address] [facility], [address], [address], [place], [address], 08/21/2024 09:15:21 HbA1c (hemoglob in A1c), blood 2024 025 SHAHEEN [employer] [facility], [address], [address], [place], [address], 08/14/2024 19:02:52 CBC w/ auto diff 2024 025 [email or web address] [facility], [address], [place], [address], 08/21/2024 09:15:21 CMP, serum or plasma 2024 025 [email or web address] [facility], [address], [place], [address], 08/21/2024 09:15:21 TSH, serum or plasma 2024 025 [email or web address], [address] [place], [address], 08/21/2024 09:15:21 Referral None recorded. Procedures None recorded. Surgeries None recorded. Imaging None recorded. Medication Orders propranol ol ER 60 mg capsule,2 4 hr,extend ed release 2024 025 [facility] #[id number], [address], [place], [place], [id number], 08/12/2024 11:33:06 clobetaso l 0.05 % topical cream 2024 025 [facility] #[id number], [address], [place], [place], [id number], 08/12/2024 11:33:10 cyanocoba rudy (vit B-12) 1,000 mcg/mL injection solution [address] [facility] #[id number], [address], [place], [place], [id number], 05/03/2024 15:07:29 cyanocoba rudy (vit B-12) 1,000 mcg/mL injection solution [address] [facility] #[id number], [address], [place], [place], [id number], 04/04/2024 17:11:00 clobetaso l 0.05 % topical cream 2023 024 [facility] #[id number], [address] , [place], [place], [id number], 04/04/2024 16:12:20 cyanocoba rudy (vit B-12) 1,000 mcg/mL injection solution [address] [facility] #[id number], [address], [place], [place], [id number], 02/08/2024 10:28:42 Patient TargetsNo targets recorded. Patient Instructions Encounter Date Encounter Id Patient Instructions Last Modified By Organization Details Last Modified Time 04/04/2024 [id number] Personalized Hea lt Plan and Screening Recommendations Advance Directives - Do you have one? Advance Directives - Do we have your advance directive on file in your health record? Primary Prevention/Interven tion (prevents or decreases the chance of common diseases from occurring) Smoking Risk: Alcohol Misuse Screening: Weight: Physical activity: Nutrition: Fall Risk (screened today): Vaccines Pneumococcal: Influenza: Chronic Disease Risks Stroke: I have no recommendations Active diagnosis, Continue current treatment plan Heart Attack: I have no recommendations Act noel diagnosis, Continue current treatment plan Clogging of the Arteries: I have no recommendations Act noel diagnosis, Continue current treatment plan Diabetes: Active diagnosis, Continue current treatment plan Secondary Prevention/Interven tion (detects treatable diseases before they may cause symptoms, disability, or ) Prostate Cancer Screening: Colon Cancer Screening: Date Screening Last Performed: Eye Disease Screening: Dementia Risk: Depression Screening: Active diagnosis, Continue current treatment plan [email or web address] Not available 04/04/2024 16:25:24 Reason for Referral None Reported. Results Created Date Observation Date Name Description Value Unit Range Abnormal Flag Note LastModifiedBy Organization Detail LastModifiedTime Result Notes None recorded. Problems Name Problem SNOMED Code Status Onset Date Resolution Date Notes Provider Name and Address Organization Details Recorded Time Erectile dysfunct ion 841274648 Active 2022 Sarath Joseph MD [address], [employer], [place], [address] , [employer] 3 14:21:01 Dementia 26600411 Active 2022 Sarath Joseph MD [address], [employer], [place], [address] , [employer] 3 15:25:35 Headache 67300435 Active 2022 Sarath Joseph MD [address], [employer], [place], [address] , [facility] 3 14:53:17 Pain in both feet [id number] 954862 Active 2022 Sarath Joseph MD [address], [place], [address] , [facility] 3 14:53:51 Dizzines s 090381198 Active 2022 Eileen damon, [place] [facility] 3 15:19:58 Ear problem 131362407 Active 2022 Eileen White null, [place] [facility] 3 15:20:30 Disorder of eye 251942825 Active 2022 Eileen White null, [place] [facility] 3 15:20:39 Injury of head 04651279 Active 2022 Eileen White null, [place] [facility] 3 15:20:49 Migraine 64127914 Active 2022 Eileen White null, [place] [facility] 3 15:21:05 Heart disease 73914982 Active 2022 Eileen White null, [place] [facility] 3 15:21:14 Hypercho lesterol emia 59869770 Active 2022 Eileen White null, [place] [facility] 3 15:21:45 Skin problem 033884474 Active 2022 Eileen Whtie null, [place] [facility] 3 15:21:55 Neuropat hy 699757747 Active 2022 Monster Bridges DPM [address], [place], [address] , [facility] 3 16:07:45 Neck pain 66738010 Active 2023 Sarath Joseph MD [address], [address], [place], [address] , [facility] 4 12:38:17 Low back pain 550124332 Active 2023 Feli Rome LPN null, [place] - [facility] 4 12:43:33 Pain of bilatera l knee joints 76872985764 4104 Active 2023 SMILEY Woods null, [facility] 4 11:56:45 Open wound of right lower leg 78189090786 023854 Active 2023 Sarath Joseph MD [address], [address], [place], [address] , [facility] 4 12:59:13 Fatigue 30298601 Active 2023 Sarath Joseph MD [address], [address], [place], [address] , [facility] 4 13:01:18 Allergic rhinitis 58081155 Active 2023 Sarath Joseph MD [address], [address], [place], [address] , [facility] 4 13:03:45 Cobalami n deficien cy 818147120 Active 2023 Sarath Joseph MD [address], [address], [place], [address] , [facility] 4 15:45:35 Venous stasis ulcer with edema of right lower leg 55822623795 840836 Active 2023 Monster Bridges DPM [address], [address], [place], [address] , [facility] 4 13:10:18 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 2023 Monster Bridges DPM [address], [address], [place], [address] , [facility] 4 14:57:18 Local infectio n of wound 40335646 Active 2023 Feli Rome LPN null, [place] [facility] 4 13:38:13 Deep venous thrombos is of lower extremit y 601710882 Active 2023 Monster Bridges DPM [address], [address], [place], [address] , [facility] 4 11:57:36 Acute deep vein thrombos is of lower limb 72212918925 8 Active 2023 Monster Bridges DPM [address], [place], [address] , [facility] 4 09:50:01 Vitamin B12 deficien cy (non anemic) 09493872 Active 2023 SMILEY Woods null, [place] [facility] 4 12:44:49 Tremor 04982533 Active 2023 Mis Hall MA null, [place] [facility] 4 14:17:28 Acute sinusiti s 55305284 Active 2023 Nalini ziegler RMA null, [place] [facility] 4 18:02:23 Abdomina l wall pain 759182138 Active 2023 Sarath Joseph MD [address], [address], [place], [address] , [facility] 4 09:55:16 Edema of lower extremit y 706445068 Active 2021 Not Available [facility] 3 04:53:45 Infectio n of skin 737880958 Completed Not Available [facility] 3 04:53:45 Chronic obstruct noel pulmonar y disease 46827925 Active Not Available [facility] 3 04:53:45 Venous ulcer of lower extremit y due to chronic peripher al venous hyperten yonis 40635907573 9100 Completed 201905/24/2021 Not Available [facility] 3 04:53:45 Closed fracture of distal end of radius 06959545 Completed 202105/20/2022 Not Available [facility] 3 04:53:45 Insomnia 771270566 Active 2021 Not Available [facility] 3 04:53:45 Cataract 099741749 Active s/p surgery Not Available [facility] 3 04:53:45 Anxiety disorder 988766297 Active 2021 Not Available [facility] 3 04:53:45 Peripher al venous insuffic iency 93773891 Active 2020 Not Available [facility] 3 04:53:46 Postherp etic neuralgi a 1245561 Active 2020 Not Available [facility] 3 04:53:46 Abdomina l aortic aneurysm 417095369 Active 2020 Not Available [facility] 3 04:53:46 Dyspnea 073760064 Completed Not Available [facility] 3 04:53:46 Edema 767143465 Active 2020 Not Available [facility] 3 04:53:46 Adult health examinat ion Active 2020 Not Available [facility] 3 04:53:46 Anemia 431165926 Active Not Available [facility] 3 04:53:46 Lacerati on of skin 293502833 Completed 202105/20/2022 Not Available [facility] 3 04:53:46 Stasis dermatit is and venous ulcer of left lower extremit y due to chronic peripher al venous hyperten yonis 20570805454 9104 Completed 202002/08/2022 Not Available [facility] 3 04:53:47 Finding of body mass index 655680722 Completed 202102/08/2022 Not Available [facility] 3 04:53:47 Thromboc ytopenic disorder 017183066 Active 2018 Not Available [facility] 3 04:53:47 Empyema 198685821 Active 2021 Not Available [facility] 3 04:53:47 Screenin g for disorder Completed 202102/08/2022 Not Available [facility] 3 04:53:47 Pain of right wrist 23844388406 9100 Completed 202105/20/2022 Not Available [facility] 3 04:53:47 Vitamin D deficien cy 16954556 Active 2020 Not Available [facility] 3 04:53:47 Depressi ve disorder 65494382 Active 2021 Not Available [facility] 3 04:53:48 Arthriti s 1459810 Active Not Available [facility] 3 04:53:48 Memory impairme nt 764605280 Active 2022 Not Available [facility] 3 04:53:48 Osteoart hritis 760765508 Active Not Available [facility] 3 04:53:48 Peripher al vascular disease 776330098 Active 2021 s/p bypass Not Available [facility] 3 04:53:48 Venous stasis ulcer of leg 964061403 Completed 202005/24/2021 Not Available [facility] 3 04:53:49 Hypothyr oidism 64244724 Active 2016 Not Available [facility] 3 04:53:49 Obesity 374010216 Active Not Available [facility] 3 04:53:49 Hematoma of lower leg 660516159 Active 2021 Not Available [facility] 3 04:53:49 Atrial fibrilla tion 90656877 Active 2021 Not Available [facility] 3 04:53:49 Coronary arterios clerosis 17523829 Active 2020 Not Available [facility] 3 04:53:49 Essentia l hyperten yonis 78827512 Active Not Available [facility] 3 04:53:50 Pleural effusion 90594961 Completed 202108/16/2022 Not Available [facility] 3 04:53:50 Aortic valve stenosis 65778754 Active 2021 Not Available [facility] 3 04:53:50 [facility]entia [facility] tremor 811091202 Active 2022 Not Available [facility] 3 04:53:50 Prediabe michael 836106240 Active 2020 Not Available [facility] 3 04:53:50 Swelling of bilatera l lower limbs 497238800 Active 2020 Not Available [facility] 3 04:53:51 Hypergly cemia 62207450 Active 2016 Not Available [facility] 3 04:53:51 Neck pain 97224778 Completed 201611/10/2017 Sarath Joseph MD [address] [place] [address], [address] [address], [place], [address] , [facility] [employer] 4 12:38:17 Ex-smoke r 3251440 Active Not Available [facility] 3 04:53:51 Administ ration of influenz a vaccine Completed 202102/08/2022 Not Available [facility] 3 04:53:51 Heart murmur 33644306 Active Not Available [facility] 3 04:53:52 Psoriasi s 7022554 Active Not Available [facility] 3 04:53:52 Gout 49696325 Active 2019 Not Available [facility] 3 04:53:52 Kidney disease 99762642 Active 2020 Not Available [facility] 3 04:53:52 Bilatera l cataract s 22283047 Completed 201905/24/2021 Not Available [facility] 3 04:53:52 Notes:BACK/NECK PROBLEM, BLO OD CLOTS, USE OF BLOOD THINNERS Medical History: Rhinitis with postnasal drip Obesity with very severe OSAHS, AHI = 64, 10/13/16, on autoBiPAP c/o IVRC Hypothyroidism Mixed hyperlipidemia Hypertension Prediabetes CAD AAA Stage 3 CKD Normocytic anemia Iron deficiency Vit B 12 deficiency Vit D deficiency Postherpetic neuralgia PVD Gout Psoriasis Procedure History: Bilateral Lasik eye surgery 2017 Problem Notes None recorded. Procedures Surgical History Date Name Laterality Status Provider Name and Address Organization Details Recorded Time 4 Medicare Wellness CPT Code, subsequent completed Amanda Denny RN [facility] 04/04/2024 16:25:31 4 Chronic care management services completed Judith Villanueva RN [facility] 01/18/2024 22:23:58 4 Wound Care-Podiatry completed Javy Arellano RN [facility] 11/22/2023 16:02:59 4 Wound Care-Podiatry completed Javy Arellano RN [facility] 10/18/2023 12:57:15 4 Medicare Wellness CPT Code, subsequent completed Michaela Amezcua RN [facility] 10/12/2023 12:45:07 Carpal tunnel surgery completed Not Available [facility] 09/21/2022 04:43:22 Lasik completed Not Available [facility] 07/2022 04:43:22 Hernia Repair completed Not Available [facility] 09/21/2022 04:43:22 other completed Not Available [facility] 07/2022 04:43:22 Orthopedic Surgery completed Not Available [facility] 09/21/2022 04:43:22 Orthopedic Surgery completed Not Available [facility] 09/21/2022 04:43:22 Imaging Results None recorded. Procedure Notes None recorded. Medical Equipment None Reported. Allergies No known drug allergies Medications Name Sig Start Date Stop Date Status Note LastModified by Organization Details LastModified Time amoxicill in 500 mg capsule TAKE 1 CAPSULE BY MOUTH THREE TIMES DAILY FOR 7 DAYS 05/29 completed Not Available Not Available Not Available furosemid e 40 mg tablet TKK 1 TABLET BY MOUTH EVERY DAY. 2024 active JOE 06/04/24 NOV 08/12/24 ok to rf Not Available Not Available Not Available atorvasta tin 40 mg tablet TAKE 1 TABLET BY MOUTH EVERY DAY active Not Available Not Available No t Available primidone 50 mg tablet TAKE 1 TABLET BY MOUTH TWICE DAILY 08/03 completed Not Available Not Available Not Available doxycycli ne hyclate 100 mg capsule TK 1 C PO BID 01/28 completed will finish 11/21/19 Not Available Not Available Not Available donepezil 5 mg tablet TAKE 1 TABLET BY MOUTH EVERY DAY 01/13 completed Not Available Not Available Not Available torsemide 20 mg tablet TK 1 T PO QAM active Not Available Not Available No t Available clindamyc in HCl 300 mg capsule TAKE 1 CAPSULE BY MOUTH THREE TIMES DAILY 10/12 completed Not Available Not Available Not Available trazodone 50 mg tablet TAKE 1 TABLET BY MOUTH EVERY DAY AT BEDTIME 10/11 completed Not Available Not Available Not Available polyethyl kevan glycol 3350 17 gram oral powder packet DISSOLVE CONTENTS OF 1 PACKET IN LIQUID AND DRINK DAILY NEEDED FOR CONSTIPA TION FOR UP TO 15 DAYS 08/18 completed Not Available Not Available Not Available cilostazo l 50 mg tablet TK 1 T PO BID 05/23 completed Not Available Not Available Not Available amiodaron e 200 mg tablet Take 1 tablet every day by oral route for 90 days. 12/03 completed Not Available Not Available Not Available hydrocodo ne 5 mg-acetam inophen 325 mg tablet TABLETA 1 TABLET BY MOUTH EVERY 6 HOURS NEEDED FOR PAIN 03/31 completed Not Available Not Available Not Available donepezil 10 mg tablet TAKE 1 TABLET BY MOUTH EVERY DAY active Not Available Not Available No t Available Medrol (David) 4 mg tablets in a dose pack take as directed on the package active Not Available Not Available No t Available propranol ol ER 60 mg capsule,2 4 hr,extend ed release TAKE 1 CAPSULE BY MOUTH EVERY DAY active Not Available Not Available No t Available clobetaso l 0.05 % topical cream APPLY TO AFFECTED AREA TWICE DAILY NEEDED active Not Available Not Available No t Available torsemide 10 mg tablet TAKE 3 TABLETS BY MOUTH EVERY MORNING 04/13 completed Not Available Not Available Not Available penicilli n V potassium 500 mg tablet TAKE 1 TABLET BY MOUTH EVERY 8 HOURS FOR 10 DAYS 11/21 completed Not Available Not Available Not Available clopidogr el 75 mg tablet TK 1 T PO QD 06/27 completed Not Available Not Available Not Available allopurin ol 100 mg tablet TAKE 1 TABLET BY MOUTH EVERY DAY active Not Available Not Available No t Available ciproflox acin 500 mg tablet 08/21 completed Not Available Not Available Not Available sulfameth oxazole 800 mg-trimet hoprim 160 mg tablet TK 1 T PO Q 12 H FOR 14 DAYS 05/23 completed Not Available Not Available Not Available aspirin 81 mg tablet,de layed release Take 1 tablet every day by oral route. 11/10 completed Not Available Not Available Not Available tramadol 50 mg tablet TK 1 T PO UP TID PRN active Not Available Not Available No t Available sildenafi l 100 mg tablet TAKE 1 TABLET BY MOUTH EVERY DAY DIRECTED 06/27 completed Not Available Not Available Not Available triamcino lone acetonide 0.1 % topical cream apply a thin layer to left lower leg area of redness twice daily active Not Available Not Available No t Available spironola ctone 25 mg tablet TAKE 1 TABLET BY MOUTH EVERY MORNING 02/11 completed Not Available Not Available Not Available levothyro xine 25 mcg tablet TAKE 1 TABLET BY MOUTH DAILY 2024 active JOE 08/12/24 NOV 12/10/24 ok to rf Not Available Not Available Not Available warfarin 3 mg tablet 06/27 completed Not Available Not Available Not Available Zofran 4 mg tablet Take 1 tablet 3 times a day by oral route as needed. 10/10 completed Not Available Not Available Not Available potassium chloride ER 20 mEq tablet,ex tended release(p art/cryst ) TAKE 1 TABLET BY MOUTH DAILY active Not Available Not Available No t Available tamsulosi n 0.4 mg capsule TK ONE C PO HS 08/18 completed Not Available Not Available Not Available diltiazem ER 120 mg capsule,2 4 hr,extend ed release Take 1 capsule every day by oral route for 30 days. active Not Available Not Available No t Available Kenalog 10 mg/mL suspensio n for injection in office 10/12 completed NDC: [id number] - Not Available Not Available Not Available hydrocodo ne 7.5 mg-acetam inophen 325 mg tablet TK 1 T PO Q 6 H PRN active Not Available Not Available No t Available cephalexi n 500 mg capsule TAKE ONE CAPSULE BY MOUTH EVERY 8 HOURS FOR 10 DAYS 03/31 completed Not Available Not Available Not Available cyanocoba rudy (vit B-12) 1,000 mcg/mL injection solution Inject 1 mL every month by subcutan eous route. 2024 active [facility][NOTE 3] # [id number]- ABN form signed & in chart / ds Not Available Not Available Not Available buspirone 10 mg tablet Take 1 tablet twice a day by oral route. active Not Available Not Available No t Available carbidopa 10 mg-levodo pa 100 mg tablet TAKE 1 TABLET BY MOUTH THREE TIMES DAILY 04/04 completed Not Available Not Available Not Available ampicilli n 2 gram solution for injection 09/25 completed Not Available Not Available Not Available Valtrex 1 gram tablet Take 1 tablet 3 times a day by oral route for 7 days. active Not Available Not Available No t Available betametha sone dipropion ate 0.05 % topical cream APPLY A THIN LAYER TOPICALL Y TO THE AFFECTED AREA TWICE DAILY 04/13 completed Not Available Not Available Not Available gabapenti n 300 mg capsule TK 1 C PO TID active Not Available Not Available No t Available aspirin 81 mg chewable tablet 06/23 completed Not Available Not Available Not Available diclofena c sodium 75 mg tablet,de layed release TAKE 1 TABLET EVERY 12 HOURS BY MOUTH NEEDED active Not Available Not Available No t Available hydrocort isone 2.5 % topical cream active Not Available Not Available Not Available monteluka st 10 mg tablet TAKE 1 TABLET BY MOUTH EVERY DAY 01/14 completed Not Available Not Available Not Available allopurin ol 300 mg tablet TAKE 1 TABLET BY MOUTH EVERY DAY active Not Available Not Available No t Available mupirocin 2 % topical ointment APPLY A SMALL AMOUNT TO ULCER THREE TIMES DAILY UNTIL HEALED 08/12 completed Not Available Not Available Not Available gabapenti n 100 mg capsule Take 1 capsule 3 times a day by oral route. active Not Available Not Available No t Available metoprolo l succinate ER 25 mg tablet,ex tended release 24 hr Take 1 tablet every day by oral route. 08/18 completed Not Available Not Available Not Available clobetaso l 0.05 % topical ointment APPLY A THIN LAYER TO THE AFFECTED AREA(S) BY TOPICAL ROUTE 2 TIMES PER DAY 08/12 completed Not Available Not Available Not Available levofloxa brenda 500 mg tablet active Not Available Not Available No t Available SSD 1 % topical cream active Not Available Not Available Not Available colchicin e 0.6 mg tablet TK 1 T PO QD active Not Available Not Available No t Available carbidopa 25 mg-levodo pa 100 mg tablet TAKE 1 TABLET BY MOUTH THREE TIMES DAILY FOR TREMORS active Not Available Not Available No t Available fluticaso ne propionat e 50 mcg/actua tion nasal spray,elizabeth pension SHAKE LIQUID AND USE 2 SPRAYS IN EACH NOSTRIL EVERY DAY active Not Available Not Available No t Available cholecalc iferol (vitamin D3) 125 mcg (5,000 unit) capsule TK 1 C PO ONCE D 04/13 completed Not Available Not Available Not Available atenolol 50 mg tablet TAKE 1 TABLET BY MOUTH EVERY DAY 07/[address] [place] [address] Hernandez01/29/2020; still on hold as of 02/26/2020 Not Available Not Available Not Available spironola ctone 50 mg tablet Take 1 tablet every day by oral route for 30 days. active Not Available Not Available No t Available diazepam 5 mg tablet TK 1 T PO PRIOR TO PRO 10/06 completed Not Available Not Available Not Available amoxicill in 875 mg-potass ium clavulana te 125 mg tablet TK 1 T PO Q 12 H 08/12 completed Not Available Not Available Not Available Tylenol 650 mg tablet,ex tended release Take 2 tablets every 8 hours by oral route. active Patient taking 6-7 tablets per day, informed he may be taking over the recommen ded daily dose Not Available Not Available Not Available enoxapari n 100 mg/mL subcutane ous syringe 04/13 completed on hold Not Available Not Available Not Available azithromy brenda 500 mg tablet 08/12 completed Not Available Not Available Not Available escitalop jory 10 mg tablet Take 1 tablet every day by oral route at bedtime. active Not Available Not Available No t Available escitalop jory 20 mg tablet TAKE 1 TABLET BY MOUTH EVERY DAY AT BEDTIME active Not Available Not Available No t Available lidocaine (PF) 10 mg/mL (1 %) injection solution In office injectio n administ ered by the provider 09/02 completed [facility][NOTE 3]: 0409-427 01-07 Not Available Not Available Not Available Symbicort 160 mcg-4.5 mcg/actua tion HFA aerosol inhaler Inhale 2 puffs twice a day by inhalati on route. 11/10 completed Not Available Not Available Not Available omeprazol e 20 mg tablet,de layed release Take by oral route. 11/10 completed Not Available Not Available Not Available cholecalc iferol (vitamin D3) 125 mcg (5,000 unit) tablet TAKE 1 TABLET BY MOUTH EVERY DAY 04/13 completed Cadena Not Available Not Available Not Available Dulera 200 mcg-5 mcg/actua tion HFA aerosol inhaler Inhale 2 puffs twice a day by inhalati on route. 05/23 completed Not Available Not Available Not Available ropivacai ne (PF) 5 mg/mL (0.5 %) injection solution in office 10/12 completed Not Available Not Available Not Available Vitamin D2 5000u daily 06/27 completed Not Available Not Available Not Available Eliquis 5 mg tablet TAKE 1 TABLET BY MOUTH TWICE DAILY active Not Available Not Available No t Available potassium chloride ER 20 mEq tablet,ex tended release TK 1 T PO QD. 10/06 completed Not Available Not Available Not Available Incruse Ellipta 62.5 mcg/actua tion powder for inhalatio n INL 1 PUFF PO QD 10/06 completed Not Available Not Available Not Available Fluvirin 3466-4900 45 mcg (15 mcg x 3)/0.5 mL intramusc ular suspensio n active Not Available Not Available Not Available vitamin D3 125 mcg (5,000 unit)-fol ic acid 1 mg tablet Take 1 tablet every day by oral route. active Not Available Not Available No t Available Fluzone High-Dose 1578-4391 (PF) 180 mcg/0.5 mL intramusc ular syringe ADM 0.5ML IM UTD active Not Available Not Available No t Available triamcino lone 0.1 % topical ointment and dimethico ne 5 % topical cream 01/28 completed Not Available Not Available Not Available Fluad 65yr up(PF)45 mcg(15 mcgx3)/0. 5 mL intramusc ular syringe active Not Available Not Available Not Available Fluzone High-Dose 9006-4954 (PF) 180 mcg/0.5 mL intramusc ular syringe active Not Available Not Available Not Available Vitals Date Recorded Body height Body temperature Provider N bud and Address Organization Details Last Updated DateTime 02/07/2024 167.64 cm 97.2 [degF] Mis Hall MA [facility] [employer] [facility] 02/07/2024 11:58:21 Date Recorded Body height Body mass index (BMI) Body weight Body temperature Heart rate Oxygen saturation Oxygen saturation in Arterial blood by Pulse oximetry Systolic blood pressure Diastolic blood pressure Provider Name and Address Organization Details Last Updated DateTime 4 167.64 cm 29.4 kg/m2 69850.2 5 g 98 [degF] 70 /min 85 % 85 % 130 mm[Hg] 80 mm[Hg] Stacy Vega [facility] [employer] [facility] 4 15:24:57 Date Recorded Body height Body temperature Provider N bud and Address Organization Details Last Updated DateTime 05/03/2024 167.64 cm 97.2 [degF] Mis Hall MA [employer] [facility] [employer] [facility] 05/03/2024 14:00:16 Date Recorded Body weight Body mass index (BMI) Body height Body temperature Systolic blood pressure Diastolic blood pressure Provider Name and Address Organization Details Last Updated DateTime 4 59668 g 29.7 kg/m2 167.64 cm 96.9 [degF] 130 mm[Hg] 80 mm[Hg] SMILEY Parra [employer] [facility] [employer] [facility] 4 09:28:35 Date Recorded Body weight Body temperature Body mass index (BMI) Body height Heart rate Oxygen saturation Oxygen saturation in Arterial blood by Pulse oximetry Systolic blood pressure Diastolic blood pressure Provider Name and Address Organization Details Last Updated DateTime 5 88394.5 5 g 96.7 [degF] 30.7 kg/m2 167.64 cm 64 /min 93 % 93 % 140 mm[Hg] 80 mm[Hg] SMILEY Parra [employer] [facility] [employer] [facility] 5 10:51:37 Social History Question Answer Notes LastModified by Organizat ion Details LastModified Time Tobacco Smoking Status Former Smoker Quit in 2004 Not Available [facility] 09/21/2022 04:40:54 Do You Have An Advance Directive? No MIGRATION.49250 20749 Information not available 09/21/2022 What Is Your Level Of Alcohol Consumption? Occasional Quit In 2019 Information not available 06/27/2023 Are You Blind Or Do You Have Difficulty Seeing? No MIGRATION.15738 94771 Information not available 09/21/2022 What Is Your Level Of Caffeine Consumption? Moderate MIGRATION.07145 19982 Information not available 09/21/2022 How Much Tobacco Do You Chew? None MIGRATION.23570 39394 Information not available 09/21/2022 Are You Deaf Or Do You Have Serious Difficulty Hearing? No MIGRATION.12195 19586 Information not available 09/21/2022 What Type Of Diet Are You Following? REGULAR MIGRATION.96279 23383 Information not available 09/21/2022 Which Illicit Or Recreational Drugs Have You Used? None MIGRATION.91644 56778 Information not available 09/21/2022 What Is Your Occupation? Retired MIGRATION.79896 47144 Information not available 09/21/2022 Have There Been Any Changes To Your Family Or Social Situation? No MIGRATION.36618 09231 Information not available 09/21/2022 What Is The Fluoride Status Of Your Home? Fluoridated MIGRATION.31718 00755 Information not available 09/21/2022 When Did You Quit Smoking? 16+yearssincelastausten forrester Information not available 06/27/2023 Are There Any Guns Present In Your Home? No MIGRATION.59488 33447 Information not available 09/21/2022 Do You Use Insect Repellent Routinely? No MIGRATION.68232 36138 Information not available 09/21/2022 Where Do You Live? [place]House MIGRATION.84080 20474 Information not available 09/21/2022 Are You Able To Care For Yourself? Yes [email or web address] Information not available 10/12/2023 Are You Blind Or Do Yo Have Difficulty Seeing? No [email or web address] Information not available 10/12/2023 Are You Deaf Or Do You Have Serious Difficulty Hearing? Yes [email or web address] Information not available 10/12/2023 Live Alone Of With Others? With Others [email or web address] Information not available 10/12/2023 What Was The Date Of Your Most Recent Tobacco Screening? 10/12/2023 Information not available 10/12/2023 What Is Your Current Pack Years? 30ormorepackyears MIGRATION.79708 29403 Information not available 09/21/2022 Do You Have Any Pets? Yes [email or web address] Information not available 10/12/2023 What Is Your Relationship Status? MIGRATION.14597 49575 Information not available 09/21/2022 Do You Use Your Seat Belt Or Car Seat Routinely? Yes MIGRATION.30978 27719 Information not available 09/21/2022 Do You Have Smoke And Carbon Monoxide Detectors In Your Home? Yes MIGRATION.36787 50696 Information not available 09/21/2022 At What Age Did You Start Smoking Tobacco? 14 MIGRATION.62806 64814 Information not available 09/21/2022 Are You Passively Exposed To Smoke? No MIGRATION.20203 91041 Information not available 09/21/2022 Are There Any Smokers In Your House? No MIGRATION.83081 92715 Information not available 09/21/2022 How Much Tobacco Do You Smoke? 2 PPD MIGRATION.00032 39094 Information not available 09/21/2022 Do You Use Sunscreen Routinely? No MIGRATION.28907 94597 Information not available 09/21/2022 Have You Recently Traveled Abroad? No MIGRATION.80815 60170 Information not available 09/21/2022 Do You Have Any Dietary Restrictions? No MIGRATION.57878 20544 Information not available 09/21/2022 Sex: Male Functional Status Question Answer Note LastModified by Organizat ion Details LastModified Time Do you have difficulty walking or climbing stairs? Yes gets tired quickly MIGRATION.392808 3587 Information not available 09/21/2022 Do you have transportation difficulties? No MIGRATION.802999 1632 Information not available 09/21/2022 Are you able to walk? YESWOREST MIGRATION.523525 6559 Information not available 09/21/2022 Do you have difficulty doing errands alone? No MIGRATION.956481 5703 Information not available 09/21/2022 Are you able to care for yourself? Yes MIGRATION.053423 9708 Information not available 09/21/2022 Do you have difficulty dressing or bathing? No MIGRATION.596399 2606 Information not available 09/21/2022 What is your exercise level? None MIGRATION.850144 2115 Information not available 09/21/2022 Mental Status Question Answer Note LastModified by Organizat ion Details LastModified Time Do you have difficulty concentrating, remembering or making decisions? No MIGRATION.[id number] 6 Information not available 09/21/2022 Family History Relationship Description Onset Age of this Age Resolved Age Notes LastModified by Organization Details LastModified Time Maternal Grandmother Heart disease MIGRATION.746 [id number] Not available 09/21/2022 04:43:26 Father Heart disease MIGRATION.919 [id number] Not available 09/21/2022 04:43:26 Father Essential hypertension MIGRATION.627 [id number] Not available 09/21/2022 04:43:26 Brother Diabetes mellitus MIGRATION.512 [id number] Not available 09/21/2022 04:43:26 Brother Depressive disorder MIGRATION.682 [id number] Not available 09/21/2022 04:43:26 Medical History Condition Response BLINDNESS N KIDNEY STONES N MRSA N CARPAL TUNNEL SYNDROME N LUNG DISEASE/DISORDER N HISTORY OF DRUG ABUSE N COPD N RADIATION / CHEMOTHERAPY N SPORTS INJURY N ANKLE PAIN N BLOOD DISEASES N SCHIZOPHRENIA N SHINGLES N BOWEL PROBLEMS N SHOULDER PAIN N DEPRESSION (INCLUDING POST ) Y STROKE/TIA N KNEE PAIN N ULCERS N BENIGN PROSTATIC HYPERPLASIA N OBESITY N GERD/NAUSEA N ANEURYSM Y URINARY/BLADDER/KIDNEY PROBLEMS Y CORONARY ARTERY DISEASE (CAD) N ADDICTION CONCERNS N ENDOMETRIOSIS N USE OF BLOOD THINNERS Y SKIN PROBLEMS Y EMPHYSEMA N GASTROINTESTINAL DISORDER N MUSCLE,JOINT OR BONE PROBLEMS N DVT N GASTROINTESTINAL BLEEDING N STOMACH ULCERS N BLOOD CLOTS Y ASTHMA N Abdominal Pain N USE OF NSAIDS N CONCUSSION OR SPINAL TRAUMA N ARTERIAL INSUFFICIENCY Y GI PROBLEMS N NEUROPATHY N AIDS/HIV N FRACTURES N ELBOW PAIN N HYPERTENSION N TOURETTE'S N ANXIETY DISORDER N Metal allergy N BLOOD TRANSFUSION N ANEMIA/BLOOD DISORDER N BIPOLAR DISORDER N BRONCHITIS N OSTEOARTHRITIS N TUBERCULOSIS N FOOT PROBLEM N HEART VALVE DISORDERS N SLEEP APNEA Y ALLERGIES/HAYFEVER N SOFT TISSUE INJURY N INFECTIOUS DISEASE N HEART ARRHYTHMIA N INSOMNIA Y RHEUMATOID ARTHRITIS N HIGH CHOLESTEROL / HYPERLIPIDEMIA Y EDEMA Y CHRONIC PAIN SYNDROME N CAROTID BLOCKAGE N BACK / NECK PROBLEMS Y HAVE YOU BEEN HOSPITALIZED OR SEEN IN [facility] IN THE PAST YEAR ? N BURSITIS N HERNIATED DISC N DIALYSIS N FIBROMYALGIA N OSTEOPOROSIS N ARTHRITIS Y NO SIGNIFICANT PAST MEDICAL HISTORY N PERIPHERAL NEUROPATHY N APPENDICITIS N DIABETES, TYPE N HEARTBURN / REFLUX N GI N AUTISM SPECTRUM DISORDER (ASD) N HEPATITIS / LIVER DISEASE N GOUT Y ALZHEIMER'S DISEASE N SLEEP DISORDER N HERPES N HEADACHES/MIGRAINES Y SEIZURES/EPILEPSY N VASCULAR DISEASE N Blood Disorder N HIP PAIN N DIZZINESS Y HEAD TRAUMA OR INJURY N HEART DISEASE/HEART PROBLEMS Y KIDNEY DISEASE Y MULTIPLE SCLEROSIS N CARDIAC ARRHYTHMIA N CANCER: SPECIFY N ANESTHESIA COMPLICATIONS N ATRIAL FIBRILLATION N Gall Stones N AUTOIMMUNE DISEASE N Immunizations Vaccine Type Date Status Note Provider Nam e and Address Organization Details Recorded Time Influenza, adjuvanted, trivalent, PF 7 completed FRAN Freire, [facility] 12/26/2023 16:45:30 Influenza, adjuvanted, quadrivalent, PF 2 completed FRAN Freire, [facility] 12/26/2023 16:45:30 COVID-19, mRNA, LNP-S, PF, 100 mcg/0.5mL dose or 50 mcg/0.25mL dose 2 completed FRAN Ferire, [facility] 12/26/2023 16:45:30 Influenza, high-dose, trivalent, PF 8 completed FRAN Freire, [facility] 12/26/2023 16:45:30 Influenza, high-dose, trivalent, PF 6 completed FRAN Freire, [facility] 12/26/2023 16:45:30 Influenza, split virus, trivalent, PF 3 completed FRAN Freire, [facility] 12/26/2023 16:45:30 Influenza, split virus, trivalent, PF 5 completed FRAN Freire, [facility] 12/26/2023 16:45:30 influenza, unspecified formulation 8 completed FRAN Freire, [facility] 12/26/2023 16:45:30 influenza, unspecified formulation 7 completed FRAN Freire, [facility] 12/26/2023 16:45:30 Influenza, high-dose, trivalent, PF 6 completed FRAN Freire, [facility] 12/26/2023 16:45:30 Influenza, high-dose, trivalent, PF 5 completed FRAN Freire, [facility] 12/26/2023 16:45:30 COVID-19, mRNA, LNP-S, PF, 30 mcg/0.3 mL dose 1 completed FRAN Freire, [facility] 12/26/2023 16:45:30 COVID-19, mRNA, LNP-S, PF, 30 mcg/0.3 mL dose 1 completed FRAN Freire, [facility] 12/26/2023 16:45:30 COVID-19, mRNA, LNP-S, PF, 30 mcg/0.3 mL dose 1 completed FRAN Freire, [facility] 12/26/2023 16:45:30 Influenza, high-dose, quadrivalent, PF 1 completed Not Available [facility] 08/09/2023 00:38:07 Influenza, high-dose, quadrivalent, PF 0 completed Not Available [facility] 08/09/2023 00:38:07 pneumococcal polysaccharide PPV23 9 completed Not Available [facility] 08/09/2023 00:38:07 Pneumococcal conjugate PCV 13 7 completed Not Available [facility] 08/09/2023 00:38:07 Influenza, split virus, quadrivalent, preservative 9 completed Not Available [facility] 08/09/2023 00:38:07 Past Encounters Encounter ID Performer Location Encounter Start Date Encounter Closed Date Diagnosis/Indication Diagnosis SNOMED-CT Code Diagnosis ICD10 Code Diagnosis Note [id number] [facility] Internal Med [facility] [address] [facility] [place] [address] 12/01/2020 00:00:00 12/01/2020 16:44:47 [id number] [facility] [address] [place] [address] 12/23/2020 00:00:00 12/23/2020 12:59:07 [id number] [facility] [address] [place] [address] 12/30/2020 00:00:00 12/30/2020 12:01:19 [id number] [facility] [address] [place] [address] 01/06/2021 00:00:00 01/06/2021 15:58:57 [id number] [facility] [address] [place] [address] 01/13/2021 00:00:00 01/13/2021 13:56:25 [id number] [facility] [address] [place] [address] 01/20/2021 00:00:00 01/20/2021 12:35:06 [id number] [facility] [address] [place] [address] 01/27/2021 00:00:00 01/27/2021 12:37:26 [id number] [facility] [address] [place] [address] 02/03/2021 00:00:00 02/03/2021 13:47:59 [id number] [facility] [address] [place] [address] 02/10/2021 00:00:00 02/10/2021 15:06:35 [id number] [facility] [address] [place] [address] 02/17/2021 00:00:00 02/18/2021 08:01:22 [id number] [facility] [address] [place] [address] 02/24/2021 00:00:00 03/09/2021 14:53:04 [id number] [facility] [address] [place] [address] 03/03/2021 00:00:00 03/03/2021 14:25:46 [id number] [facility] [address] [place] [address] 04/13/2021 00:00:00 04/13/2021 15:02:32 [id number] [facility] [address] [place] [address] 05/13/2021 00:00:00 05/13/2021 17:26:10 [id number] [facility] [place] [address] [address] 05/26/2021 00:00:00 05/26/2021 16:01:25 [id number] [facility] [place] [address] [facility] [place] [address] 09/15/2021 00:00:00 09/15/2021 14:27:59 [id number] [facility] [place] [address] [facility] [place] [address] 10/13/2021 00:00:00 10/13/2021 14:31:49 [id number] [facility] [address] [place] [address] 11/15/2021 00:00:00 11/15/2021 17:21:15 [id number] [facility] [place] [address] [facility] [place] [address] 02/14/2022 00:00:00 02/14/2022 14:52:22 [id number] [facility] [place] [address] [place] [address] 02/21/2022 00:00:00 02/21/2022 15:26:22 [id number] [facility] [place] [address] [place] [address] 02/28/2022 00:00:00 02/28/2022 14:35:20 [id number] [facility] [address] [facility] [place] [address] 03/01/2022 00:00:00 03/01/2022 16:42:57 [id number] [facility] [place] [address] [place] [address] 03/07/2022 00:00:00 03/07/2022 17:26:02 [id number] [facility] [place] [address] [place] [address] 03/14/2022 00:00:00 03/14/2022 16:39:16 [id number] [facility] [address] [address] 03/31/2022 00:00:00 03/31/2022 15:42:21 [id number] [facility] [place] [address] [place] [address] 04/15/2022 00:00:00 04/15/2022 15:30:58 [id number] [facility] [address] [place] [address] 05/23/2022 00:00:00 05/23/2022 14:48:10 [id number] [facility] [address] [place] [address] 06/23/2022 00:00:00 06/23/2022 17:23:19 [id number] [facility] [address] [place] [address] 08/18/2022 00:00:00 08/18/2022 15:25:46 [id number] [facility] [address] [address] 09/08/2022 00:00:00 09/08/2022 14:25:17 [id number] Sarath Joseph MD [facility] [address] [place] [address] 10/10/2022 14:06:21 10/10/2022 14:23:34 Memory impairment 610270012 R41.3 Erectile dysfunction 860 182717 F52.21 [id number] Sarath Joseph MD [facility] [address] [facility] 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 D69.6 stable Prediabetes 663175954 R7 3.03 watching diet Adult heal th examination 252397598 Z00.00 colonoscop y 5+ yrs ago per patientPSA - 09/2020- DUEPrevnar - 09/14/2016 Pneumovax - 03/20/19Inf luenza vacc- 2021 (per pt)COVID- Has had both covid vacc and plus the booster Essential tremor 8130894 09 G25.0 try meds Depression screening 171 530382 Z13.31 Body mass index 25-29 - overweight 822764912 Z68.27 diet and exercise discussed Dementia 74408142 F03.90 on meds stable Depressive disorder 3548 9007 F32.A better Heart murmur 25489923 R0 1.1 Anxiety disorder 2263480 06 F41.9 better Aortic valve stenosis 60 483293 I35.0 s/p replacemen t Screening for malignant neoplasm of prostate 727810453 Z12.5 [id number] Sarath Joseph MD [facility] [address] [facility] [place] [address] 04/20/2023 14:16:23 04/20/2023 14:56:36 Essential hypertension 85164062 I10 under control Chronic ob structive pulmonary disease 51455697 J44.9 stable, no meds needed Abdominal aortic aneurysm 415425442 I71.40 s/p repair Erectile dysfunction 860 584521 F52.21 meds did not help Edema 486822692 R60.9 stable Gout 62965772 M10.9 no flare up Hypothyroidism 04305894 E03.9 stable Kidney disease 49663161 N08 better Osteoarthritis 174948589 M19.90 otc Peripheral vascular disease 655440987 I73.9 on eliquis Thrombocyt openic disorder 350773890 D69.6 stable Prediabetes 660328960 R7 3.03 watching diet Adult heal th examination 619596610 Z00.00 Colonoscop y 5+ yrs ago per patientPSA - re vnar 09/14/2016 Pneumovax 03/20/19Inf luenza vacc- 2022 (per pt)COVID- Has had both covid vacc and plus the booster Essential tremor 1060195 09 G25.0 try meds Dementia 79475631 F03.90 on meds stable Depressive disorder 3548 9007 F32.A better Heart murmur 75109224 R0 1.1 Anxiety disorder 8301417 06 F41.9 better Aortic valve stenosis 60 297493 I35.0 s/p replacemen t Headache 40705656 R51.9 Pain in both feet 727001 2095 8831010 M79.885 [id number] Monster Bridges DPM [facility] [place] [address] [facility] [place] [address] 06/27/2023 15:11:32 07/06/2023 10:22:06 Neuropathy 944575340 G62.9 obtain EMGfollow- up testing possible referral to Neurology [id number] Sarath Joseph MD [facility] [address] [facility] [place] [address] 08/03/2023 11:32:19 08/03/2023 12:42:14 Essential hypertension 14982501 I10 under control Chronic ob structive pulmonary disease 57374572 J44.9 stable, no meds needed Abdominal aortic aneurysm 767397152 I71.40 s/p repair Erectile dysfunction 860 293685 F52.21 meds did not help Edema 552516245 R60.9 stable Gout 20747872 M10.9 no flare up Hypothyroidism 76681755 E03.9 stable Kidney disease 97883067 N08 GFR 49 Osteoarthritis 413331941 M19.90 knees getting worse Peripheral vascular disease 533144692 I73.9 on eliquis Thrombocyt openic disorder 578742509 D69.6 stable Prediabetes 398664795 R7 3.03 watching diet Essential tremor 1928246 09 G25.0 meds not helping, start new meds Dementia 00623040 F03.90 on meds stable Depressive disorder 3548 9007 F32.A better Heart murmur 66270100 R0 1.1 Anxiety disorder 8223967 06 F41.9 better Aortic valve stenosis 60 131726 I35.0 s/p replacemen t Adult heal th examination 850973954 Z00.00 Colonoscop y 5+ yrs ago per patientPSA - re vnar 09/14/2016 Pneumovax 03/20/19Inf luenza vacc- 2022 (per pt)COVID- Has had both covid vacc and plus the booster Headache 62846502 R51.9 Atrial fibrillation 4943 6004 I48.91 in sinus Neck pain 74053626 M54.2 [id number] Monster Bridges DPM [facility] [place] [address] [facility] [place] [address] 08/08/2023 15:28:11 08/08/2023 16:03:39 Neuropathy 140062599 G62.9 Nerve studies reviewed with the patientref erred to Neurologyr ecommend daily foot care and exam to prevent wounds infectionc ontinue supportive shoe gearawaiti ng referral with orthopedic s [id number] KENN Nieves [facility] [place] [address] [place] [address] 08/24/2023 11:31:20 08/24/2023 12:47:11 Pain of bilateral knee joints 8992514127 82858 M25.486 [id number] Sarath Joseph MD [facility] [address] [facility] [place] [address] 10/12/2023 12:01:47 10/12/2023 13:05:35 Adult health examination 263720090 Z00.00 Colonoscop y 5+ yrs ago per patientPSA - re vnar - 09/14/2016 Pneumovax 03/20/19Inf luenza vacc- 2022 (per pt)COVID- Has had both covid vacc and plus the booster Screening for disorder [id number] Z13.9 Open wound of right lower leg 3127906061 0344716 S81.801A Fatigue 90164920 R53.83 R53.0 R53.1 R53.81 Prediabetes 581356099 R7 3.03 watching diet Screening for malignant neoplasm of prostate 942299315 Z12.5 Allergic rhinitis 985954 04 J30.9 [id number] Monster Bridges DPM [facility] [address] [place] [address] 10/18/2023 12:37:11 10/18/2023 16:08:47 Peripheral venous insufficiency 23576759 I87.2 obtain non-invasi ve vascular testing Venous sta sis ulcer with edema of right lower leg 2226873070 8511705 L97.919 Culture performed todayrecom mend chronic compressio n therapycom pression dressings applied todayconti nue Betadine wet-to-dry dressings with compressio n dailyfollo w-up in 3 weeks Acute deep vein thrombosis of lower limb 8630110319 08 I82.4Z1 r/o DVT [id number] Monster Bridges DPM [facility] [address] [place] [address] 11/22/2023 15:26:49 11/22/2023 16:21:33 Peripheral venous insufficiency 89303925 I87.2 obtain non-invasi ve vascular testing Venous sta sis ulcer with edema of right lower leg 2652966201 6863119 L97.919 Healed and chronic compressio n therapypat ient denies ultrasound follow-up as needed [id number] MD EDNA [facility] [address] [facility] [place] [address] 12/04/2023 15:19:58 12/04/2023 16:06:29 Essential hypertension 39938605 I10 under control Chronic ob structive pulmonary disease 31635651 J44.9 stable, no meds needed Abdominal aortic aneurysm 257092426 I71.40 s/p repair Erectile dysfunction 860 527179 F52.21 meds did not help Edema 564353392 R60.9 stable Gout 94677671 M10.9 no flare up Hypothyroidism 70679488 E03.9 stable Kidney disease 77084737 N08 GFR 49 Osteoarthritis 736113247 M19.90 knees getting worse Peripheral vascular disease 193379101 I73.9 on eliquis Thrombocyt openic disorder 283311017 D69.6 stable Prediabetes 041292230 R7 3.03 watching diet Essential tremor 2167129 09 G25.0 meds not helping, start new meds Dementia 27501986 F03.90 on meds stable Depressive disorder 3548 9007 F32.A better Heart murmur 57034155 R0 1.1 Anxiety disorder 1312913 06 F41.9 better Aortic valve stenosis 60 113431 I35.0 s/p replacemen t Adult heal th examination 216671915 Z00.00 Colonoscop y 5+ yrs ago per patientPSA - re vnar - 09/14/2016 Pneumovax - 03/20/19Inf luenza vacc- 2022 (per pt)COVID- Has had both covid vacc and plus the booster Headache 51726074 R51.9 Atrial fibrillation 4943 6004 I48.91 in sinus Neck pain 38209265 M54.2 [id number] Juanita Chavez NP [facility] [address] [facility] [place] [address] 12/08/2023 11:53:19 12/08/2023 12:43:01 Vitamin B12 deficiency (non anemic) 05461469 E53.8 [id number] Shanda Cherry [facility] [address] [facility] [place] [address] 12/26/2023 16:26:17 04/01/2024 18:21:45 Essential hypertension 23678750 I10 Atrial fibrillation 4943 6004 I48.91 Insomnia 330012713 G47.0 0 [id number] Sarath Joseph MD [facility] [address] [place] [address] 02/07/2024 11:44:05 02/07/2024 12:01:03 Vitamin B12 deficiency (non anemic) 93109686 E53.8 [id number] Sarath Joseph MD [facility] [address] [place] [address] 04/04/2024 15:14:18 04/04/2024 16:36:21 Essential hypertension 20810819 I10 under control Chronic ob structive pulmonary disease 56317577 J44.9 stable, no meds needed Abdominal aortic aneurysm 176884829 I71.40 s/p repair Erectile dysfunction 860 745692 F52.21 meds did not help Edema 606256402 R60.9 stable Gout 68703569 M10.9 no flare up Hypothyroidism 58338489 E03.9 stable Kidney disease 94953691 N08 improved Osteoarthritis 207021902 M19.90 getting worse Peripheral vascular disease 554523552 I73.9 on eliquis Thrombocyt openic disorder 433749691 D69.6 stable Prediabetes 293278638 R7 3.03 watching diet Essential tremor 5874488 09 G25.0 meds not helping, start new meds Dementia 71637547 F03.90 stable Depressive disorder 3548 9007 F32.A no meds needed Heart murmur 73716845 R0 1.1 Anxiety disorder 0888153 06 F41.9 better Aortic valve stenosis 60 141178 I35.0 s/p replacemen t Adult heal th examination 564961026 Z00.00 Colonoscop y 5+ yrs ago per patientPSA - 10/13/2023 Prevnar - 09/14/2016 Pneumovax - 03/20/19Inf luenza vacc- 2022 (per pt)COVID- Has had both covid vacc and plus the booster Atrial fibrillation 4943 6004 I48.91 in sinus Neck pain 29817319 M54.2 heating pad, tylenol Psoriasis 9479590 L40.9 Screening for disorder 937899044 Z13.9 Vitamin B1 2 deficiency (non anemic) 82876488 E53.8 [id number] Juanita Chavez NP [facility] [address] [place] [address] 05/03/2024 12:24:46 05/03/2024 14:03:16 Vitamin B12 deficiency (non anemic) 37583542 E53.8 [id number] Sarath Joseph MD [facility] Internal Med [address] [place] [address] 06/04/2024 09:16:32 06/04/2024 09:56:59 Abdominal wall pain 380217748 R10.9 apply heat, keep taking tylenol,ca ll if not better in 2 weekstake precaution s [id number] Sarath Joseph MD [facility] Internal Med [address] [place] [address] 08/12/2024 10:45:04 08/12/2024 11:49:17 Essential hypertension 55802077 I10 under control Chronic ob structive pulmonary disease 25456229 J44.9 does not want meds Abdominal aortic aneurysm 609403886 I71.40 s/p repair Erectile dysfunction 860 902181 F52.21 meds did not help Edema 995319404 R60.9 stable Gout 85285747 M10.9 no flare up Hypothyroidism 00527123 E03.9 stable Kidney disease 12495069 N08 improved Osteoarthritis 790680253 M19.90 getting worse Peripheral vascular disease 182004461 I73.9 on eliquis Thrombocyt openic disorder 459108790 D69.6 stable Prediabetes 354780754 R7 3.03 watching diet Essential tremor 7444112 09 G25.0 add propranolo l Dementia 13326319 F03.90 stable Depressive disorder 3548 9007 F32.A no meds needed Heart murmur 47478611 R0 1.1 Anxiety disorder 1980863 06 F41.9 under control Aortic valve stenosis 60 165035 I35.0 s/p replacemen t Adult heal th examination 839727103 Z00.00 Colonoscop y 5+ yrs ago per patientPSA - 10/13/2023 Prevnar 13- 09/14/2016 Pneumovax 23- 03/20/19Inf luenza vacc- 2024 (per pt)COVID- Has had both covid vacc and plus the booster Atrial fibrillation 4943 6004 I48.91 in sinus Neck pain 11937394 M54.2 heating pad, tylenol Psoriasis 0402564 L40.9 Goals Section Goal Description Progress Status Start Date LastModified by Organization Details LastModified Time Stroke/T IA Risk Reductio n Reduces risk factors for stroke NoChange active 2023 Judith Villanueva RN Information not available 01/16/2024 22:33:50 Effectiv e Coping Manages life events with effective coping methods NoChange active 2023 Judith Villanueva RN Information not available 01/16/2024 22:33:50 Follow-u p Appointm ent(s) Attends referral and/or follow-up appointment(s) as per care team recommendation (s) NoChange active 2023 Judith Villanueva RN Information not available 01/16/2024 22:33:50 Chronic Disease Symptom Manageme nt Reports no new or worsening symptoms NoChange active 2023 Judith Villanueva RN Information not available 01/16/2024 22:33:50 Fall Safety Reports no recent falls and/or fall injuries NoChange active 2023 Judith Villanueva RN Information not available 01/16/2024 22:33:50 Medicati on Regimen Follows medication regimen as per care team recommendation (s) Regressing active 2023 Judith Villanueva RN Information not available 01/19/2024 02:26:30 Activiti es of Daily Living Performs activities of daily living independently or with minimal assistance NoChange active 2023 Judith Villanueva RN Information not available 01/16/2024 22:33:50 Health Concerns Section Related Observation LastModified by Organization Detai ls LastModified Time General health poor Not Available Not Available Not Av ailable Concern Status LastModified by Organization Details LastModified Time None Recorded Advance Directives Directive N: Payers Encounter Date Sequence Insurance Name Policy Number Policy Early Covered Member ID Early Member ID Guarantor Name 02/07/2024 1 [facility] - MEDICARE SOLUTIONS - MEDICARE COMPLETE (MEDICARE REPLACEMENT HMO) [id number] Franki Yusuf [id number] Franki Yusuf 04/04/2024 1 [facility] MEDICARE SOLUTIONS - MEDICARE COMPLETE (MEDICARE REPLACEMENT HMO) [id number] Franki Yusuf [id number] Franki Yusuf 05/03/2024 1 [facility] MEDICARE SOLUT[facility] - MEDICARE COMPLETE (MEDICARE REPLACEMENT HMO) [id number] Franki Schwartzaak [id number] Franki Sagek 06/04/2024 1 [facility] MEDIC[facility] SOLUT[facility] - MEDICARE COMPLETE (MEDICARE REPLACEMENT HMO) [id number] Franki Schwartzaak [id number] Franki Yusuf 08/12/2024 1 [facility] MEDIC[facility] SOLUT[facility] - MEDICARE COMPLETE (MEDICARE REPLACEMENT HMO) [id number] Franki Yusuf [id number] Franki Yusuf Notes Date Note Type Note Provider Name and Address Organization Details Recorded Time 04/04/2024 text/html He is here today for his routine 4month follow up, Compliant to meds.Has not been feeling well for over a week. No fever. Has Sinus pressure, body aches, no energy. HAS NOT CHECKED FOR COVIDPT IS NOT FASTINGMedica re Wellness ExamPt continues to have neck pain. Has tried heating pads, OTC salves and not seems to help. Had X-rays in 07/2023 Hypertension- controlled with medsMeds- Metoprolol ER 25mg dailyCOPD- sob only upon exertion, states he'll be fineEdema-stable with medsMeds- Furosemide 40 mg dailyCKD -has not f/u with nephrology , GFR over 60, Not seeing Dr Cadena any moreCAD- s/p stent, dr Jimenez, no symptoms Afib- in sinus, on Eliquis AAA repair and had open heart surgery. s/p aortic valve replacement(05/2022 )PVD- s/p bypass , stents 2017, pain in the the legs on long walksMeds- Eliquis 5mg bidTremors- takes meds and seems to be helpingMeds- Carbidopa 25mg-Levodopa 100mg TID Hypothyroidism- on meds, under controlMeds- Levothyroxine 25mcg dailyGout- uric acid was high, on allopurinol, came down to nlMeds- Allopurinol 300 mg dailySleep apnea- [facility] has a cpap but admits he does not use it. He will reconsider using it.Arthritis- knees getting worse, still gets pain, has not seen improvement, does not want any more, does not want surgeryh/o Anemia- last hb 10.8psoriasis- Elbows and back, using meds, has seen derm , gets better when use medsMeds- Clobetasol creamEx-smoker, quit 2013,Prediabetes- watching diet, A1C was 5.1 on 10/12/24h/o alcoholism, has quit , drinks beer some timesTremors - on carbidopa/levodopa fairly under control ED- hard to get erection and to maintain it, sildenafil did not help and says he does not need any meds Dementia- not getting better but not getting worseMME- was memory is not effecting him driving.Lives with wifeMeds- Donepezil 10mg Hyperlipidemia- on medsMeds- Atorvastatin 40mg daily Depression- no more symptoms, he stopped taking escitalopram Psoriasis- Uses Clobetasol cream as needed B 12 def- started on b12 shots Sarath Joseph MD [address], [place], [address], [employer] 04/04/2024 17:07:57 06/04/2024 text/html Pt is here today for 2 wk h/o of lower abd pain only on straining and movements.feels almost like a pulled muscle, Has been going on for about 1-2 weeks. Straining makes it worse (getting up from a sitting position)no change in BM OR urineno feverappetite unchangedno back paintaking tylenolHe also was recently in [facility] for pneumonia, States that he still has SOB. Has not fully recoveredPAIN STARTED AT THE SAME TIME WHEN HAD CALEB Joseph MD [address], [place], [address], [employer] 06/04/2024 09:58:49 08/12/2024 text/html He is here today for his routine 4month follow up, Compliant to meds. PT IS FASTING ( [facility] )Has a few complaintsPt continues to have neck pain. Has tried heating pads, OTC salves and not seems to help. Had X-rays in 07/2023No Energy, Arthritis in knees and hands Hypertension- controlled with medsMeds- Metoprolol ER 25mg dailyCOPD- sob only upon exertion, states he'll be fine. O2 is 93 %, DOES NOT WANT MEDSEdema-stable with medsMeds- Furosemide 40 mg dailyCKD -has not f/u with nephrology , GFR over 60, Not seeing Dr Cadena any moreCAD- s/p stent, dr Jimenez, no symptoms Afib- in sinus, on Eliquis AAA repair and had open heart surgery. s/p aortic valve replacement(05/2022 )PVD- s/p bypass , stents 2016, pain in the the legs on long walksMeds- Eliquis 5mg bidTremors- takes meds and still gets shakinessMeds- Carbidopa 25mg-Levodopa 100mg TID Hypothyroidism- on meds, under controlMeds- Levothyroxine 25mcg dailyGout- uric acid was high, on allopurinol, came down to nlMeds- Allopurinol 300 mg dailySleep apnea- had sleep study at [facility] has a cpap but admits he does not use it. He will reconsider using it.Arthritis- knees getting worse, still gets pain, has not seen improvement, does not want any more, does not want surgeryh/o Anemia- last hb 10.8psoriasis- Elbows and back, using meds, has seen derm , gets better when use medsMeds- Clobetasol creamEx-smoker, quit 2013,Prediabetes- watching diet, A1C was 5.1 on 10/12/24h/o alcoholism, has quit , drinks beer some time ED- hard to get erection and to maintain it, sildenafil did not help and says he does not need any meds Dementia- not getting worseMME- was memory is not effecting him driving.Lives with wifeMeds- Donepezil 10mg qd Hyperlipidemia- on medsMeds- Atorvastatin 40mg daily Depression- no more symptoms, he stopped taking escitalopram Psoriasis- Uses Clobetasol cream as needed B 12 def- on b12 shots Sarath Joseph MD [address] [facility] [facility] [address], [place], [address], [place] [facility] [employer] 08/12/2024 11:35:48
--- NOTE | 2024-11-05 11:49 | WPDHOLTEREM ---
Holter/Event Monitor Holter/Event Monitor Date of procedure: 10/18/24 Holter/Event Procedure: 3-7 Day Holter Monitor Indications: Heart disease Conclusion: 1. 3 days holter monitor on 10/18/24. 2. Underlying rhythm is sinus rhythm. HR range 35-107 bpm; average HR 70 bpm. HR at 35 bpm was due to non-conducted atrial premature complex on 10/20/24 at 6:49 am. 3. There are rare premature supraventricular complex. No supraventricular tachycardia. 4. There are rare premature ventricular complexes, rare ventricular couplets, and rare ventricular triplets. No ventricular tachycardia. 5. No significant pauses greater than 3 seconds. There is first degree AV block. 6. Patient reports 1 episode of symptom of lightheadedness and shortness of breath which demonstrates sinus rhythm at 77 bpm.
== END 2024-10-18 09:44 | disposition home or self-care (01) ==
PROVIDERS: PCP Nurse Practitioner Family; Visit Provider Internal Medicine
DX: I51.9 Heart disease, unspecified (principal); I44.0 Atrioventricular block, first degree
CPT/HCPCS: 93242

== ENCOUNTER 2025-05-15 02:05 | Day surgery (SDC) | payer MEDICARE, SELFPAY ==
--- OUTSIDE RECORDS SUMMARY | 2025-05-09 03:44 | XMS_ITS | Continuity of Care Document ---
Author Organization [facility] Address [address] [place] [address] Phone Care Team Providers Care Criminalist Technician Name Role Phone Tony FRAZIER, [facility], [facility] Unavailable Unavailab le Allergies, Adverse Reactions, Alerts Substance Reaction Status Criticality No Known Allergies Active No Inform ation Medications Medication Instructions Dosage Effective Dates (start - stop) Status Comments carbidopa 25 mg-levodopa 100 mg tablet - Active Eliquis 5 mg tablet - Active atorvastatin 40 mg tablet TAKE 1 TABLET BY MOUTH EVERY DAY - Active furosemide 40 mg tablet - Ac tive levothyroxine 25 mcg tablet TAKE 1 TABLET BY MOUTH DAILY - Active clobetasol 0.05 % topical cream APPLY TO AFFECTED AREA TWICE DAILY NEEDED - Active allopurinol 300 mg tablet TAKE 1 TABLET BY MOUTH EVERY DAY - Active Procedures Procedure Date NTRPROF PH1/NTRNET/EHR 5/> INJECTION EXT VENOGRAPHY VEIN X-RAY, ARMS/LEGS INTRVASC US NONCORONARY 1ST INTRVASC US NONCORONARY ADDL Complex e/m visit add on OFFICE/OUTPATIENT VISIT, EST VASCULAR STUDY TTE W/DOPPLER, COMPLETE LOWER EXTREMITY STUDY EXTREMITY STUDY ЕКАТЕРИНА LOWER EXT Complex e/m visit add on OFFICE/OUTPATIENT VISIT, NEW ELECTROCARDIOGRAM, COMPLETE Advance Directives Directive Yes / No Effective Date File Name No Information Encounters Encounter Description Practice Location Reason(s) For Visit Diagnoses Date Provider Providers Copied on Encounter NTRPROF PH1/NTRNET/E HR 5/> [facility], [address] [place] [address], [id number] , tel: [phone] [employer] Encounter for preprocedural cardiovascular examination 5 Tony [facility]. [address] , [place], [place], [id number] , [place]. tel: [phone] [facility] , [address] [place] [address], [id number] , tel: [phone] [facility] OP Chronic venous hypertension w oth comp of unsp low extrmLocalized edema 5 Tony [facility]. [address], [place], [place], [id number] , [place]. tel: [phone] Referring Provider: [address], [place], [address]. tel:[phone] OFFICE/OUTPA TIENT VISIT, EST [facility] , [address] [place] [address], [id number] , tel: [phone] [facility] Follow Up of cardiology exam (chief complaint)S OB (chief complaint)b il leg edema (chief complaint)b il leg swelling (chief complaint)c ellulite's in left leg worsens in shower (chief complaint) Abdominal aortic aneurysm without ruptureCAD of chipe[place]a coronary artery w/o angina pectorisAfibAortic stenosisCKDPADChron ic venous zifodzdikbeya0gd degree AV blockChronic venous hypertension with ulcer of bilateral legs 5 Tony [facility]. [address], [place], [place], [id number] , [place]. tel: [phone] Referring Provider: [address], [place], [address]. tel:[phone] [facility], [address], [place], [id number] , tel: [phone] [facility] [place] No Information Saheta Sanjaya. [address], [place], [id number] , . tel: [phone] Referring Provider: [address], [place], [place], [facility]. tel:[phone] [facility], [address], [place], [id number] , [place] tel: [phone] [facility] No Information Saheta Sanjaya. [address] [place], [id number] , [place]. tel: [phone] Referring Provider: [address], [place], [place], [facility]. tel:[phone] [facility], [address] [place] [address], [id number] , [place] tel: [phone] [facility] No Information Saheta Sanjaya. [address] [place] [address], [id number] , [place]. tel: [phone] Referring Provider: [address], [place], [address]. tel:[phone] [facility], [address], [place], [id number] , [place] tel: [phone] [facility] Peripheral vascular disease, unspecifiedAbdomina l aortic aneurysm, without rupture, unspecified Saheta Sanjaya. [address] [place], [place], [id number] , [place]. tel: [phone] Referring Provider: [address], [place], [address]. tel:[phone] OFFICE/OUTPA TIENT VISIT, [facility], [address] [place] [address], [id number] , tel: [phone] [facility] Pcp referral for Cellulitis (chief complaint)s welling,tin gling,numbn ess in legs (chief complaint)C ardiovascul ar Review (chief complaint) Abdominal aortic aneurysm without ruptureCAD of chipewwa coronary artery w/o angina pectorisAfibAortic stenosisCKDPADChron ic venous ejnfcesfxzxcr0ta degree AV block 5 [facility] Sanjaya. [address] [place], [place], [id number] , . tel: [phone] Referring Provider: Jackie Ferreira, [address], [place], [address]. tel:[phone] [facility], [address] [place] [address], [id number] , tel: [phone] [facility] No Information [facility]. [facility] [address] [place], [place], [id number] , . tel: [phone] [facility], [address] [place] [address], [id number] , tel: [phone] [facility] No Information 5 Tony Almanza. [address] [place], [place], [id number] , . tel: [phone] Family History Family Member Type Diagnosis Age At Onset Problem (finding) Family history of Hyper tension Problem (finding) Family history of Strok e Problem (finding) Family history of Cardi ovascular disease Problem (finding) Family history of Diabe michael mellitus Payers Payer name Insurance type Covered alliance party ID Authoriza tion(s) [employer] MEDICARE ADVANTAGE ST 0003 MB [id number] Social History Type Description Quantity Date Captured Comments Sex Male Smoking Status No Information Chief Complaint And Reason For Visit No Information Reason For Referral Reason For Referral No Information Plan Of Treatment Date Type Action Status Future Order: Lab Order Lipid Pa roosevelt ([id number]), Ordered on: Ordered Future Order: Lab Order CBC ([id number]), Ordered on: Ordered Future Order: Lab Order Basic Me tabolic Panel BMP ([id number]), Ordered on: Ordered Future Order: Lab Order PT/INR ( [id number]), Ordered on: Ordered Future Order: Radiology Order VE NOGRAM ([id number]), Ordered on: Ordered Future Order: Radiology Order IV US ([id number]), Ordered on: Ordered Future Order: Lab Order CBC ([id number]), Ordered on: Ordered Future Order: Lab Order CMP ([id number]), Ordered on: Ordered Future Order: Lab Order PT/INR ( [id number]), Ordered on: Ordered Future Order: Radiology Order Ec hocardiogram, Complete Transthoracic ([id number]), Ordered on: Ordered Future Order: Radiology Order Du plex scan of lower extremity arteries ([id number]), Ordered on: Ordered Future Order: Radiology Order Du plex scan of extremity veins; unilateral or limited study ([id number]), Ordered on: Ordered Future Order: Radiology Order Du plex scan of aorta inferior vena cava/iliac vasculature/bypass grafts complete study ([id number]), Ordered on: Ordered History Of Present Illness Encounter Date Complaint History Of Prese nt Illness Follow Up of cardiology exam SOB niki leg edema niki leg swelling cellulite's in left leg worsens in shower Pcp referral for Cellulitis swelling,tingling,numbness in le gs Cardiovascular Review Mr. Yusuf has edema. Functional Status Date Functional Assessmen t No Information Instructions Date Instruction Additional Infor mation No Information Assessments Type Assessment Date No Information Patient Care Teams Name Effective Dates (start - stop) Status Members No Information
[2025-05-09 13:20] VITALS: BMI 22.5
--- NOTE | 2025-05-09 13:57 | PC.NURSE ---
Spoke with PATIENT & regarding medication ELIQUIS. They both verbalized understanding that the last dose is to be taken on 05/12/2025 and the Endoscopist will instruct them when to restart after the procedure.
--- OUTSIDE RECORDS SUMMARY | 2025-05-15 02:07 | XMS_ITS | Clinical Summary ---
Author Organization [facility] Address [address] [place] [address] Care Team Providers Care Developer Architect Name Role Phone Davy Joseph MD Primary Care Provider [phone] Davy Joseph MD Unavailable [phone] Archie Jimenez MD Unavailable Vita Zelaya MD [...] 1 capsule (5,000 Units total) by mouth medical coder before breakfast Active allopurinoL (ZYLOPRIM) 300 mg tablet Take 1 tablet (300 mg total) by mouth daily 30 tablet 05/22/20 Active escitalopram (LEXAPRO) 20 mg tablet Take 1 tablet (20 mg total) by mouth daily 30 tablet 05/22/20 22 Active levothyroxine (SYNTHROID) 25 mcg tablet Take 1 tablet (25 mcg total) by mouth medical coder before breakfast 25 tablet 05/22/20 22 Active polyethylene glycol (MIRALAX) 17 gram packetIndications:c onstipation Take 1 packet (17 g total) by mouth daily as needed for constipation for up to 15 days 15 packet 05/21/20 22 Active traZODone (DESYREL) 50 mg tablet Take 1 tablet (50 mg total) by mouth nightly Active tamsulosin (FLOMAX) 0.4 mg extended release capsule Take 1 capsule (0.4 mg total) by mouth daily with dinner 30 capsule 06/15/20 22 Active clopidogreL (PLAVIX) 75 mg tabletIndications:P eripheral Arterial Thromboembolism Prevention Take 1 tablet (75 mg total) by mouth daily 90 tablet 1 06/15/20 Active metoprolol XL (TOPROL-XL) 25 mg extended [...] mouth 3 (three) times a day 05/14/20 24 Active donepeziL (ARICEPT) 10 mg tablet Take [...] every 30 (thirty) days 03/08/20 24 Active furosemide (LASIX) 40 mg tablet Take 1 tablet (40 mg total) by mouth daily Active Active Problems Problem Noted Date Diagnosed Date Venous hypertension 03/14/2025 Dementia 05/26/2024 Vitamin D deficiency 05/26/2024 Hyperlipidemia 05/26/2024 Hypertension 05/26/2024 Anxiety 05/26/2024 Gout 05/26/2024 Hypothyroidism 05/26/2024 Thrombocytopenia 05/26/2024 Malaise and fatigue 05/25/2024 COPD (chronic obstructive pulmonary disease) Assessment & Plan (06/17/2022 8:05 AM MANAGER MALL): - Currently on RA - CT on 06/09 with e/o volume overload, notable for pulmonary edema & bilateral pleural effusion, diuresed as above - Continue with aggressive pulmonary hygiene, C&DB, IS, OOBTC, ambulate. - Wean O2 for SpO2>92% - Home CPAP while sleeping - Strict I&O Abdominal pain 06/14/2022 Assessment & Plan (06/17/2022 8:07 AM MANAGER MALL): C/o abdominal pain 06/09 during the day, [...] 06/14/2022 Assessment & Plan (06/17/2022 8:06 AM MANAGER MALL): - Last cardiac stent ~3 yrs ago, follows with Dr. Mukherjee - Continue home ASA and statin - Continue home lasix & spironolactone - bridging to warfarin Urinary retention 06/14/2022 Assessment & Plan (06/17/2022 8:03 AM MANAGER MALL): - Unable to void after vaca removed on 06/11 - 06/11: Replaced Vaca and started on Flomax - Vaca removed 06/13 and has been voiding without difficulty - Bladder scan if c/f urinary retention - Strict I&O. Pleural effusion 05/14/2022 Assessment & Plan (06/17/2022 8:05 AM MANAGER MALL): - Noted during prior admission and required CT placed by Interventional Pulmonary on 05/12-06/16 - Interventional Pulmonary consulted 06/06 for pleural effusion - Underwent successful R thoracentesis with 605 ml of serosanginous fluid removed - 06/11 CXR with an unchanged right-sided volume loss/right lower lobe collapse, moderate bilateral pleural effusions with associated atelectasis is unchanged, no pneumothorax Assessment & Plan (06/15/2022 10:14 PM MANAGER MALL): R pleural effusion-POA Right thoracentesis 06/06 with [...] (05/16/2022): Added automatically from request for surgery [id number] Assessment & Plan (06/17/2022 8:05 AM MANAGER MALL): - 05/31: s/p bio AVR and ascending [...] aorta. Assessment & Plan (06/15/2022 10:15 PM MANAGER MALL): S/p AVR 05/31/22 ECHO today with reported [...] 08/10/2019 Assessment & Plan (06/17/2022 8:22 AM MANAGER MALL): - 05/16: CT with infrarenal abdominal aortic [...] 08/10/2019 Assessment & Plan (06/17/2022 8:07 AM MANAGER MALL): - Holding home eliquis - heparin gtt to bridge to coumadin per Dr. Zelaya - PO amiodarone started while in the ICU, holding home metoprolol. Held previously in the setting of hypotension. Per CTS, decrease amio to 200mg daily - CTS ok with home today if INR > 1.8, will recheck at noon Assessment & Plan (06/15/2022 10:12 PM MANAGER MALL): POA S/p partial Maze 05/31 Check EKG; [...] 08/10/2019 Assessment & Plan (06/17/2022 8:05 AM MANAGER MALL): - CrCl 50 - Continue home medications as able - Strict I&O - Daily BMP. Assessment & Plan (06/15/2022 10:13 PM MANAGER MALL): CKD 3 Has been on lasix PO [...] (05/18/2022): Added automatically from request for surgery [id number] AAA (abdominal aortic aneury sm) without rupture 03/10/2020 06/17/2022 Overview (03/10/2020): Added automatically from request for surgery [id number] Assessment & Plan (06/15/2022 10:13 PM MANAGER MALL): S/p FEVAR with vascular Per vascular service. Plavix started today. Encounters Date Type Department Care Team Description 04/02/2025 11:30 AM CDT - 04/02/2025 1:00 PM CDT Surgery [facility] Cardiac Catheterization Lab [address] [place] [id number] Archie Jimenez MD EXTREMITY VENOGRAPHY, UNILATERAL S&I [id number] [[id number] (CPT )] 04/02/2025 9:35 AM CDT - 04/02/2025 2:35 PM CDT Hospital Encounter [facility] Cardiac Catheterization Lab [address] [place] [id number] Archie Jimenez MD Venous hypertension Discharge Disposition: Discharge to home or self care 03/14/2025 Orders Only [facility] Cardiac Catheterization Lab [address] [place] [id number] Archie Jimenez MD Venous hypertension (Primary Dx) from Last 3 Months Immunizations Immunization Administration Dates Next Due Influenza, Quadrivalent, Hig h Dose, Preservative Free, Intrr 06/17/2022(Deferred: Patient Refused - pt stated already recieved flu shot in March along with COVID booster) Surgical History Surgery Date Site/Laterality Comments ABDOMINAL AORTIC ANEURYSM REPAIR HEART SURGERY CARDIAC CATHETERIZATION 04/02/2025 N/A Procedure: EXTREMITY VENOGRAPHY, UNILATERAL S&I 74333; Surgeon: Archie Jimenez MD; Location: CARDIAC [facility]OE REPA[facility]PR[facility]ICE; Service: Cardiovascular; Laterality: N/A; Medical History Medical History Date Comments Atrial fibrillation (HCC) COPD (chronic obstructive pulmonary disease) Hyperlipidemia HTN (hypertension) Hypothyroid PVD (peripheral vascular disease) with stents Sleep apnea Gallstones AAA (abdominal aortic aneurysm) Coronary artery disease Chronic kidney disease Depression Family History Medical History Relation Name Comments [...] you have a drink containing alc ohol? Monthly or less 04/02/2025 Q2: How many drinks containi ng alcohol do you have on a typical day when you are drinking? 3 or 4 04/02/2025 Q3: How often do you have si x or more drinks on one occasion? Never 04/02/2025 Personal Safety Answer Date Recorded Have you ever been in or are you currently in a harmful physical or emotional relationship or is someone making you feel afraid or unsafe? Denies 04/02/2025 Sex and Gender Information Value Date Recorded Sex Assigned at Not on file Legal Sex Male 8:15 PM MANAGER MALL Gender Identity Not on file Sexual Orientation Not on file Obstetrics History Last Filed Vital Signs Vital Sign Reading Time Taken Comments Blood Pressure 187/80 04/02/2025 12:15 PM CDT Pulse 65 04/02/2025 12:20 PM CDT Temperature 36.7 C (98 F) 04/02/2025 10:09 AM CDT Respiratory Rate 17 04/02/2025 10:09 AM CDT Oxygen Saturation 97% 04/02/2025 12:20 PM CDT Inhaled Oxygen Concentration - - Weight 81 kg (178 lb 8 oz) 04/02/2025 10:09 AM C DT Height 177.8 cm (5' 10) 04/02/2025 10:09 AM CDT Body Mass Index 25.61 04/02/2025 10:09 AM CDT Plan of Treatment Health Maintenance Due Date Last Done Comments Colon Cancer Screening-Colonoscopy 1950 Depression Screening 1950 Hepatitis C Screening 1950 DTaP/Tdap/Td Vaccine (1 - Tdap) 1960 Hepatitis B Screening 10/25/1967 Zoster Vaccine (1 of 2) 10/25/1999 Well Visit 65+ 2014 Covid-19 Vaccine (5 - 2024-2 6 season) 2025 03/16/2022, 05/04/2021, 10/16/2020, Additional history exists Influenza Vaccine (#1) 2025 , 05/13/2021, 05/16/2019, Additional history exists Fall Risk Assessment 04/02/2026 04/02/2025 Pneumococcal vaccine 65+ Completed 03/20/2019, 08/25 Abdominal Aortic Aneurysm (A AA) Screen Completed 01/02/2025, 06/29/2022, 06/23/2022, Additional history exists Medical Devices Implanted Type Area Signal Technician Device Identifier Shelf Expiration Date Model / Serial / Lot Valued Relationships Medical Inc Zenith Alpha Captor Od32 Mm Codvg10-51 Mm L160 Mm 2 Piece Distal Component Self Expand 2 Lock Mechanism Thoracic Od7.1 Mm Cylindrical Graft Endovascular Nitinol Polypropylene Polyester Fabric Hydrophilic Sterile Accepts .0 [id number] - S00 - [id number] Implanted:Qty: 1 on 06/07/2022 by Higinio Oleary MD at [facility] Endoprosthesis N/A: Aorta [employer] Inc 04/05/2025 [id number] / 00 / [id number] Description:Distal Wl [place] [employer] Stent Endoprosthesis 29mm 7mm 11mm 7fr [place] Viabahn 135cm [id number] - [id number] - [id number] Implanted:Qty: 1 on 06/07/2022 by Higinio Oleary MD at [facility] Endoprosthesis Right: Abdomen Wl [place] [employer] [id number] 02/07/2025 [id number] 02A / [id number] Description:SMA Bard Peripheral Vascular 6x6in Patch Thk1.65mm [place] Cardiovascular Ptfe Sterile Latex Free [id number] - Sna - [id number] Implanted:Qty: 1 on 05/31/2022 by Vita Zelaya MD at [facility] Graft N/A: Heart Bard Peripheral Vascular 12/18/2026 [id number] / NA / Terumo Cardio Vascular Gelweave 28mm 30cm Suture Retention Unique Hydrolyzable Abdomen [id number] - [id number] - [id number] Implanted:Qty: 1 on 05/31/2022 by Vita Zelaya MD at [facility] Graft N/A: Heart Terumo Cardio Vascular [id number] 11/20/2024 [id number] / [id number] / [id number] Sharma Lifesciences Magna Ease 25mm [id number] - [id number] - [id number] Implanted:Qty: 1 on 05/31/2022 by Vita Zelaya MD at [facility] Graft N/A: Heart Sharma [employer]iences [id number] 11/24/2025 [id number] 25MM / [id number] / Maquet Inc [id number] Hemashield 6x1in Woven Thk.46mm Fabric Cardiovascular - [id number] - [id number] Implanted:Qty: 1 on 05/31/2022 by Vita Zelaya MD at [facility] Graft N/A: Heart GETINGE [employer]ST[employer] INC [id number] 09/20/2025 [id number] / [id number] / [id number] Wl [place] [employer] 4-7mm 45cm 10cm Removable Ring Line Standard Low Altitude Air Defense Officer Graft [id number] - [id number] - [id number] Implanted:Qty: 1 on 06/07/2022 by Higinio Oleary MD at [facility] Graft N/A: Abdomen Wl [place] [employer] [id number] 05/02/2026 [id number] 045L / [id number] / Wl [place] [employer] [place] Excluder C3 35mm 14.5mm 30-32mm 12-13.5mm 14cm Delivery [id number] - [id number] - [id number] Implanted:Qty: 1 on 06/07/2022 by Miguel Ángel Ceja MD at [facility] Graft N/A: Aorta Wl [place] [employer] [id number] 08/22/2024 [id number] 14 / [id number] / Wl [place] [employer] [place] Excluder 12mm 14cm Contralateral Leg Graft Endovascular [id number] - [id number] - [id number] Implanted:Qty: 1 on 06/07/2022 by Miguel Ángel Ceja MD at [facility] Graft Left: Iliac Wl [place] [employer] [id number] 09/29/2024 [id number] / Plascencia Vascular Amplatzer 10mm 7mm 100cm Type Ii Delivery System Optimal Latex Free 9-Avp2-010 - S00 - [id number] Implanted:Qty: 1 on 06/07/2022 by Higinio Oleary MD at [facility] Other - see comments N/A: Celiac Trunk [employer]asc[employer] V[employer] [id number] 01/20/2027 9-AVP2- 010 / 00 / [id number] Description:plug Plascencia V[employer] Perclose 6fr Vascular Closure 42193-00 - S00 - [id number] Implanted:Qty: 2 on 06/07/2022 by Higinio Oleary MD at [facility] Other - see comments Left: Femoral [employer] [id number] 11/21/2023 56657-5 [id number] Valued Relationships Medical Inc Coil Embolization [place] Microcoil [place] Od4-2mm .018 In Catheter [id number] - S00 - [id number] Implanted:Qty: 1 on 06/07/2022 by Higinio Oleary MD at [facility] Other - see comments N/A: Aorta [employer] Inc [id number] 06/27/2024 [id number] / 00 / [id number] 2 Description:Embolization simran rocoil Used for graft modification Stent Tracheobronchial Covered 0.035in Guidewire Icast [id number] Stainless Steel 10888 - [id number] - [id number] Implanted:Qty: 1 on 06/07/2022 by Higinio Oleary MD at [facility] Stent N/A: Abdomen [employer] [id number] 04/05/2025 10373 / [id number] / Description:CELIAC Stent Tracheobronchial Covered 0.035in Guidewire Icast [id number] Stainless Steel 14264 - [id number] - [id number] Implanted:Qty: 1 on 06/07/2022 by Higinio Oleary MD at [facility] Stent Left: Renal [employer] [id number] 02/03/2024 37737 / [id number] / Stent Tracheobronchial Covered 0.035in Guidewire Icast [id number] Stainless Steel 81897 - [id number] - [id number] Implanted:Qty: 1 on 06/07/2022 by Higinio Oleary MD at [facility] Stent Right: Renal [employer] [id number] 01/08/2024 11995 / [id number] / Procedures Procedure Name Priority Date/Time Associated Diagnosis Comments VENO EXTREM UNILAT S&I Routine 04/02/2025 11:49 AM CDT Venous hypertension EGFR Routine 04/02/2025 9:57 AM CDT DIFFERENTIAL AUTO Routine 04/02/2025 9:5 7 AM CDT COMPREHENSIVE METABOLIC PANEL Routine 04/02/2025 9:57 AM CDT CBC WITH AUTO DIFFERENTIAL Routine 04/02/2025 9:[address] CHEST W AND ABDOMEN PELVIS W WO CONTRAST (C) Critical/Life-T hreatening 06/09/2022 7:16 AM MANAGER MALL from Last 3 Months or Most Recently Relevant to Health Maintenance Results * VENO EXTREM UNILAT S&I (04/02/2025 11:49 AM CDT) Anatomical Region Laterality Modality X-Ray Angiograph y Narrative 04/02/2025 12:03 PM CDT Findings: This is a 74-year-old male who has been having mostly left leg swelling. His swelling is mostly knee and below and he has had his GSV ablated in the past. I recommended doing a venogram with IVUS to assess for compression or stenosis of the iliac veins the understood and wished to proceed. Patient prepped and draped usual sterile fashion 1% lidocaine used to infiltrate both common femoral vein regions in the groin. I then used ultrasound and micropuncture we accessed and placed 8 sheaths bilaterally. I then did venogram 1st the left than the right and then we did IVUS with an 035 Thomas IVUS. I then removed the IVUS and the sheaths will be pulled manually Findings Left vein venogram demonstrates no significant compression on the on that side Right vein venogram also demonstrates no compression with a fairly wide open iliac system. IVUS was done and I will get further measurements later on, however I did not feel that there was a significant area of compression by IVUS measurements on either side. Impression: Most likely nonsignificant compression of the iliac system mostly I was concerned about the left side. Once bedrest is then patient should be able to go home and I will follow up with him in the office. us Archie Jimenez MD CV CARDIAC CATH PROCEDURES Final Result * eGFR (04/02/2025 9:57 AM CDT) eGFR 88 >=60 mL/min/1. 73 m2 Comment: Interpretive Data Reference Interval Normal >/= 90 mL/min/1.73m2 Mildly decreased* 60 - 89 mL/min/1.73m2 Mildly to moderately decreased 45 - 59 mL/min/1.73m2 Moderately to severely decreased 30 - 44 mL/min/1.73m2 Severely decreased 15 - 29 mL/min/1.73m2 Kidney Failure < 15 mL/min/1.73m2 *Relative to young adult level Estimated glomerular filtration rate is determined by the 2020 CKD-EPI equation recommended by the National Kidney Foundation (A Unifying Approach to GFR Estimation: Recommendations of the NKF-ASK Task Force on Reassessing the Inclusion of Race in Diagnosing Kidney Disease, JASN 202). The CKD-EPI equation should not be used for patients with unstable renal function and has not been validated in children and those over 70. Current interpretive data was last reviewed 2021. Blood 04/02/2025 9:57 AM CDT 04/02/2025 10:08 AM CDT us Archie Jimenez MD LAB BLOOD ORDERABLES Final Resul t DONAL [id number] Department [place] [address] * (ABNORMAL) Differential, auto (04/02/2025 9:57 AM CDT) Neutrophil abs 5.16 1.50 - 6.50 K/cumm Imm gran abs 0.03 0.00 - 0.10 K/cumm [facility] Lymphocyte abs 0.63(L) 0.80 - 3.30 K/cumm [facility] Monocyte abs 0.36 0.20 - 0.80 K/cumm [facility] Eosinophil abs 0.01 0.00 - 0.50 K/cumm [facility] Basophil abs 0.02 0.00 - 0.10 K/cumm [facility] Neutrophil pct 83.1 % [facility] Comment: Interpretive Data Percent cell count reference ranges are not reported, since discordance with absolute values may lead to misinterpretation of CBC data. Current Interpretive Data was last revised on 2017. Imm gran pct 0.5 % [facility] Comment: Interpretive Data Percent cell count reference ranges are not reported, since discordance with absolute values may lead to misinterpretation of CBC data. Current Interpretive Data was last revised on 2017. Lymphocyte pct 10.1 % [facility] Comment: Interpretive Data Percent cell count reference ranges are not reported, since discordance with absolute values may lead to misinterpretation of CBC data. Current Interpretive Data was last revised on 2017. Monocyte pct 5.8 % [facility] Comment: Interpretive Data Percent cell count reference ranges are not reported, since discordance with absolute values may lead to misinterpretation of CBC data. Current Interpretive Data was last revised on 2017. Eosinophil pct 0.2 % [facility] Comment: Interpretive Data Percent cell count reference ranges are not reported, since discordance with absolute values may lead to misinterpretation of CBC data. Current Interpretive Data was last revised on 2017. Basophil pct 0.3 % [facility] Comment: Interpretive Data Percent cell count reference ranges are not reported, since discordance with absolute values may lead to misinterpretation of CBC data. Current Interpretive Data was last revised on 2017. Blood 04/02/2025 9:57 AM CDT 04/02/2025 10:03 AM CDT Archie Jimenez MD LAB BLOOD ORDERABLES Final Resul t Performing Organization Address [facility] Co de Phone Number DONAL [address] [place] [address] * (ABNORMAL) CBC with auto differential (04/02/2025 9:57 AM CDT) WBC 6.21 3.80 - 9.90 K/cumm Hgb 13.1 13.0 - 17.5 g/dL [facility] Hct 41.4 38.9 - 50.3 % [facility] Plt 120(L) 150 - 400 K/cumm [facility] MPV 11.6 9.1 - 12.3 fL [facility] RBC 4.04(L) 4.30 - 5.80 M/cumm [facility] MCV 102.5(H) 81.3 - 96.4 fL [facility] MCH 32.4 27.1 - 33.3 pg [facility] MCHC 31.6(L) 32.3 - 35.7 g/dL [facility] RDW CV 14.5 11.1 - 14.9 % [facility] RDW SD 54.8(H) 35.7 - 48.1 fL [facility] NRBC abs 0.00 0.00 - 0.01 K/cumm [facility] Blood 04/02/2025 9:57 AM CDT 04/02/2025 10:03 AM CDT us Archie Jimenez MD LAB BLOOD ORDERABLES Final Resul t DONAL [address] [place] [address] * (ABNORMAL) Comprehensive metabolic panel (04/02/2025 9:57 AM CDT) Sodium 140 135 - 145 mmol/L Potassium, pl 3.9 3.3 - 4.9 mmol/L [facility] Chloride 102 97 - 110 mmol/L [facility] CO2 20(L) 22 - 32 mmol/L [facility] Anion gap 18(H) 2 - 15 mmol/L [facility] BUN 7 6 - 25 mg/dL [facility] Creatinine 0.91 0.80 - 1.30 mg/dL [facility] Glucose 68(L) 70 - 199 mg/dL [facility] Comment: Interpretive Data Fasting glucose >/= 126 mg/dl is diagnostic for diabetes. Fasting is defined as no caloric intake for at least 8 hours. Fasting glucose between 100 mg/dl to 125 mg/dl is diagnostic of prediabetes. In a patient with classic symptoms of hyperglycemia or hyperglycemic crisis, a random glucose >/= 200 mg/dl is diagnostic for diabetes. In the absence of unequivocal hyperglycemia, results should be confirmed by repeat testing. The classification and Diagnosis of Diabetes Diabetes Care 202; 46: S19-S40. Current interpretive data was last revised 2022. Calcium 8.9 8.5 - 10.3 mg/dL [facility] Bilirubin, total 0.8 0.1 - 1.2 mg/dL [facility] Protein, pl 7.2 6.5 - 8.5 g/dL [facility] Albumin 4.1 3.5 - 5.0 g/dL [facility] Alk phos 118 40 - 130 Units/L [facility] ALT 5(L) 7 - 55 Units/L [facility] AST 21 10 - 50 Units/L [facility] Blood 04/02/2025 9:57 AM CDT 04/02/2025 10:03 AM CDT Archie Jimenez MD LAB BLOOD ORDERABLES Final Resul t [facility] [id number] Department [place] [address] * CT Chest W and Abdomen Pelvis W WO Contrast (C) (06/09/2022 7:16 AM MANAGER MALL) Anatomical Region Laterality Modality Body N/A Computed Tomogra phy 06/09/2022 7:46 AM MANAGER MALL Impressions 06/09/2022 7:46 AM MANAGER MALL 1. Postsurgical changes of recent median sternotomy, [...] Kale Hernandez M.D. Narrative 06/09/2022 7:46 AM MANAGER MALL EXAMINATION: 1. Computed tomography of the chest [...] pneumonia. Electronically signed by: Kale Hernandez M.D. us Ayla Yadi Panchal MEDICAL APPOINTMENT SCHEDULER IMG CT PROCEDURES Michela l Result from Last 3 Months or Most Recently Relevant to Health Maintenance Insurance [employer] MDCR HMO REF [facility] HMO REF U[employer] MEDICARE ADVANTAGE Advance Directives For more information, please contact: [phone] * Full Code (Latest Code Status on [...] 7:53 PM 05/21/2022 7:47 PM Care Teams Developer Architect Relationship Specialty Start Date End Date Davy Joseph MD PCP - General Internal Medicine 05/11/22 Davy Joseph MD Internal Medicine 05/11/22 Archie Jimenez MD Consulting Physician Cardiovascular Disease 08/19/19 Vita Zelaya MD Surgeon Cardiothoracic Surgery 06/15/22
--- OUTSIDE RECORDS SUMMARY | 2025-05-15 02:08 | XMS_ITS | Data Portability ---
Author Organization [facility] [employer], Main Office Address [address] [place] [address] Care Team Providers Care Cryptological Technician Name Role Phone SARATH JOSEPH Primary Care Provider SARATH JOSEPH Referring Provider [phone] JUDITH VILLANUEVA Personnel Officer Assessment No assessment recorded. Plan of Treatment Reminders Order Date Submit Date Provider Last Modified By Organization Details Last Modified Time Details Appointments Any 15 2025 11:15A M Sarath Joseph MD Not available Not available Not available Lab None recorde d. Referral EGD referra l - sonu Vaughn be done soon, within a week 2024 025 MANUELA reis MD, [address], [address], [place], [address], 05/07/2025 11:15:30 vascula r surgeon referra l - Please call patient to peng patton an appoint ment. Thank you. 2024 025 [email or web address] [facility] Referral Fax Line, [address], [address], [place], [address], 05/07/2025 09:07:51 wound care referra l - Please call Jenifer Yusuf [phone] to peng patton for patient - current ly phone is broken. Thank you. 2024 025 [email or web address] [facility], [address], [address], [place], [address], 05/07/2025 09:07:27 Procedures colonos copy procedu re (PROC) - sonu Vaughn be done soon, within a week 2024 025 MANUELA reis MD, [address], [address], [place], [address], 05/07/2025 11:25:18 Surgeries None recorde d. Imaging None recorde d. Medication Orders cyanoco balamin (vit B-12) 1,000 mcg/mL injecti on solutio n [address] [id number], [address] , [place], [place], [id number], 05/07/2025 12:40:12 ondanse nery 4 mg disinte grating tablet 2024 025 [facility], [address], [place], [place], [id number], 05/07/2025 10:25:13 cyanoco balamin (vit B-12) 1,000 mcg/mL injecti on solutio n 2024 025 [email or web address] Not available 04/15/2025 14:01:09 furosem essence 40 mg tablet 2024 025 [facility] #77156, [address], [place], [place], [id number], 04/14/2025 13:21:59 donepez il 10 mg tablet 2024 025 [facility] #13804, [address], [place], [place], [id number], 04/14/2025 13:06:51 cyanoco balamin (vit B-12) 1,000 mcg/mL injecti on solutio n 2024 025 [facility] Not available 02/17/2025 09:11:56 doxycyc line hyclate 100 mg tablet 2024 025 SHAHEEN [facility]69514, [address], [place], [place], [id number], 03/14/2025 05:02:01 cyanoco balamin (vit B-12) 1,000 mcg/mL injecti on solutio n 2024 025 [id number] [facility] #05341, [address], [place], [place], [id number], 02/13/2025 12:05:32 Patient Targets Encounter Date Encounter Id Patient Goals Patient Target Last Modified By Organization Details Last Modified Time 04/14/2025 [id number] discuss with PCP on falls, diet Not available 04/14/2025 12:45:05 Patient Instructions Encounter Date Encounter Id Patient Instructions Last Modified By Organization Details Last Modified Time 02/06/2025 [id number] Keep legs clean and dry. Keep wounds clean and wrapped as discussed in office. Follow up with wound care and vascular surgery. [email or web address] Not available 02/06/2025 10:39:09 Discussed signs and symptoms of infection and emergent signs to watch for. Discussed wound care and cleaning. Discussed importance of elevation and avoiding of extra salt due to additional swelling. Discussed the importance of seeing vascular surgery at this time to avoid worsening conditions. Not available 02/06/2025 10:40:31 04/14/2025 [id number] Personalized [facility] lt Plan and Screening Recommendations Advance Directives - Do you have one? No I recommend consulting with an Anode Adjuster, family member, or friend to assist you. Advance Directives - Do we have your advance directive on file in your health record? No, please bring in a copy at your earliest convenience Primary Prevention/Interven tion (prevents or decreases the chance of common diseases from occurring) Smoking Risk: Non Smoker Alcohol Misuse Screening: Negative Weight: Appropriate Physical activity: Need more exercise/physical activity Nutrition: Poor patient is not eating Fall Risk (screened today): High Recommend regular use of cane or walker Vaccines Pneumococcal: No further needed Influenza: Recommended today Chronic Disease Risks Stroke: High Risk Active diagnosis, Continue current treatment plan Heart Attack: High Risk Active diagnosis, Continue current treatment plan Clogging of the Arteries: High risk Active diagnosis, Continue current treatment plan Diabetes: High Risk Active diagnosis, Continue current treatment plan Secondary Prevention/Interven tion (detects treatable diseases before they may cause symptoms, disability, or ) Prostate Cancer Screening: Your next PSA in: your next digital rectal exam in:order Colon Cancer Screening: Colonoscopy No screening necessary Date Screening Last Performed: ____2019 Eye Disease Screening: Your next exam in: Dementia Risk: Intermediate Depression Screening: Positive Active diagnosis, Continue current treatment plan Not available 04/14/2025 12:45:29 Reason for Referral Please call Jenifer Yusuf [phone] to schedule for patient- currently phone is broken. Thank you. Referring Physician: Jackie Ferreira, Internal Medicine, Encounter Date: 02/06/2025 Vascular Surgeon Referral fo r Vascular insufficiency Please call patient to schedule an appointment. Thank you. Referring Physician: Jackie Ferreira, Internal Medicine, Encounter Date: 02/06/2025 EGD Referral for Epigastric pain sonu Argueta be done soon, within a week Referring Physician: Sarath Joseph, Internal Medicine, Encounter Date: 05/07/2025 Results Created Date Observation Date Name Description Value Unit Range Abnormal Flag Note LastModifiedBy Organization Detail LastModifiedTime Result Notes None recorded. Problems Name Problem SNOMED Code Status Onset Date Resolution Date Notes Provider Name and Address Organization Details Recorded Time Infectio n of skin 132484536 Completed Not Available [facility] 3 04:53:45 Chronic obstruct noel pulmonar y disease 21772984 Active Not Available [facility] 3 04:53:45 Cataract 613991146 Active s/p surgery Not Available [facility] 3 04:53:45 Dyspnea 843622410 Completed Not Available [facility] 3 04:53:46 Anemia 056176352 Active Not Available [facility] 3 04:53:46 Arthriti s 7190636 Active Not Available [facility] 3 04:53:48 Osteoart hritis 109754845 Active Sarath Joseph MD [address], [address], [place], [address] , [employer] 5 12:59:58 Obesity 900228418 Active Not Available [facility] 3 04:53:49 Essentia l hyperten yonis 66901914 Active Not Available [facility] 3 04:53:50 Ex-smoke r 9889104 Active Not Available [facility] 3 04:53:51 Heart murmur 61543690 Active Sarath Joseph MD [address], [address], [place], [address] , [employer] 5 13:00:42 Psoriasi s 4647691 Active Sarath Joseph MD [address], [employer], [place], [address] , [employer] 5 13:01:11 Hypothyr oidism 94542630 Active 2016 Sarath Joseph MD [address], [employer] [employer], [place], [address] , [employer] 5 12:59:54 Hypergly cemia 69110877 Active 2016 Not Available [facility] 3 04:53:51 Neck pain 88145382 Completed 201611/10/2017 Sarath Joseph MD [address], [address], [place], [address] , [employer] 4 12:38:17 Thromboc ytopenic disorder 093970021 Active 2018 Not Available [facility] 3 04:53:47 Venous ulcer of lower extremit y due to chronic peripher al venous hyperten yonis 52930028515 9100 Completed 201905/24/2021 Not Available [facility] 3 04:53:45 Bilatera l cataract s 42932059 Completed 201905/24/2021 Not Available [facility] 3 04:53:52 Gout 07660351 Active 2019 Not Available [facility] 3 04:53:52 Peripher al venous insuffic iency 47123219 Active 2020 Not Available [facility] 3 04:53:46 Postherp etic neuralgi a 3760753 Active 2020 Not Available [facility] 3 04:53:46 Abdomina l aortic aneurysm 889557610 Active 2020 Not Available [facility] 3 04:53:46 Edema 895503434 Active 2020 Not Available [facility] 3 04:53:46 Vitamin D deficien cy 37044749 Active 2020 Not Available [facility] 3 04:53:47 Kidney disease 34290938 Active 2020 Sarath Joseph MD [address] [place] [address], [facility] [address], [place], [address] , [facility] 5 12:59:56 Venous stasis ulcer of leg 818726203 Completed 202005/24/2021 Not Available [facility] 3 04:53:49 Swelling of bilatera l lower limbs 584078922 Active 2020 Not Available [facility] 3 04:53:51 Stasis dermatit is and venous ulcer of left lower extremit y due to chronic peripher al venous hyperten yonis 31066257106 9104 Completed 202002/08/2022 Not Available [facility] 3 04:53:47 Adult health examinat ion Active 2020 Not Available [facility] 3 04:53:46 Coronary arterios clerosis 10069911 Active 2020 Not Available [facility] 3 04:53:49 Prediabe michael 537004974 Active 2020 Not Available [facility] 3 04:53:50 Screenin g for disorder Completed 202102/08/2022 Not Available [facility] 3 04:53:47 Depressi ve disorder 38892377 Active 2021 Sydni damon, [facility] [employer] [facility] 5 12:44:41 Peripher al vascular disease 932535178 Active 2021 s/p bypass Not Available [facility] 3 04:53:48 Hematoma of lower leg 150059104 Active 2021 Not Available [facility] 3 04:53:49 Administ ration of influenz a vaccine Completed 202102/08/2022 Not Available [facility] 3 04:53:51 Insomnia 364766897 Active 2021 Not Available [facility] 3 04:53:45 Anxiety disorder 344756277 Active 2021 Not Available [facility] 3 04:53:45 Finding of body mass index 275425227 Completed 202102/08/2022 Not Available [facility] 3 04:53:47 Pain of right wrist 17111981568 9100 Completed 202105/20/2022 Not Available [facility] 3 04:53:47 Closed fracture of distal end of radius 22529312 Completed 202105/20/2022 Not Available [facility] 3 04:53:45 Lacerati on of skin 757944025 Completed 202105/20/2022 Not Available [facility] 3 04:53:46 Empyema 329162860 Active 2021 Not Available [facility] 3 04:53:47 Aortic valve stenosis 73542250 Active 2021 Not Available [facility] 3 04:53:50 Edema of lower extremit y 322652367 Active 2021 Sarath Joseph MD [address] [place] [address], [facility] [address], [place], [address] , [facility] [employer] [facility] 5 12:07:50 Atrial fibrilla tion 88877672 Active 2021 Not Available [facility] 3 04:53:49 Pleural effusion 92942184 Completed 202108/16/2022 JIM Cardoza [address], [address], [place], [address] , [place] [facility] [place] [facility] 5 11:11:02 Memory impairme nt 581409041 Active 2022 Not Available [facility] 3 04:53:48 Essentia l tremor 605827236 Active 2022 Sarath Joseph MD [address], [address], [place], [address] , [facility] [place] [facility] 5 13:00:07 Erectile dysfunct ion 104736165 Active 2022 Sarath Joseph MD [address], [address], [place], [address] , [facility] 3 14:21:01 Dementia 82573924 Active 2022 Sarath Joseph MD [address], [address], [place], [address] , [facility] [place] [facility] 5 13:00:11 Headache 80276275 Active 2022 Sarath Joseph MD [address], [address], [place], [address] , [facility] 3 14:53:17 Pain in bilatera l feet 70587881371 106667 Active 2022 Sarath Joseph MD [address], [address], [place], [address] , [facility] 3 14:53:51 Dizzines s 776923884 Active 2022 Eileen damon, [facility] 3 15:19:58 Ear problem 696525872 Active 2022 Eileen damon, [place] [facility] 3 15:20:30 Disorder of eye 125333368 Active 2022 Eileen White null, [place] [facility] 3 15:20:39 Injury of head 71815822 Active 2022 Eileen White null, [place] [facility] 3 15:20:49 Migraine 97619599 Active 2022 Eileen White null, [place] [facility] 3 15:21:05 Heart disease 80044356 Active 2022 Eileen White null, [place] [facility] 3 15:21:14 Hypercho lesterol emia 42825150 Active 2022 Eileen White null, [place] [facility] 3 15:21:45 Skin problem 491020370 Active 2022 Eileen White null, [facility] 3 15:21:55 Neuropat hy 964624784 Active 2022 Monster Bridges DPM [address], [place], [address] , [facility] 3 16:07:45 Neck pain 80019253 Active 2023 Sarath Joseph MD [address], [place], [address] , [facility] [place] [facility] 4 12:38:17 Low back pain 447439161 Active 2023 Feli Rome LPN null, [facility] 4 12:43:33 Pain of bilatera l knee joints 08407165714 4104 Active 2023 SMILEY Woods null, [place] [facility] 4 11:56:45 Open wound of right lower leg 56868914164 996019 Active 2023 Sarath Joseph MD [address], [address], [place], [address] , [facility] 4 12:59:13 Fatigue 06949069 Active 2023 Sarath Joseph MD [address], [address], [place], [address] , [facility] 4 13:01:18 Allergic rhinitis 22646143 Active 2023 Sarath Joseph MD [address], [address], [place], [address] , [facility] 4 13:03:45 Cobalami n deficien cy 249184678 Active 2023 Sarath Joseph MD [address], [address], [place], [address] , [facility] 5 11:48:37 Venous stasis ulcer with edema of right lower leg 01477798822 093372 Active 2023 Monster Bridges DPM [address], [place], [address] , [facility] 4 13:10:18 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 2023 Monster Bridges DPM [address], [place], [address] , [facility] 4 14:57:18 Local infectio n of wound 56684230 Active 2023 Feli Rome LPN null, [facility] 4 13:38:13 Deep venous thrombos is of lower extremit y 751075214 Active 2023 Monster Bridges DPM [address], [place], [address] , [facility] 4 11:57:36 Acute deep vein thrombos is of lower limb 89797027176 8 Active 2023 Monster Bridges DPM [address], [place], [address] , [facility] 4 09:50:01 Vitamin B12 deficien cy (non anemic) 23239830 Active 2023 Zeynep Luque RMA null, [place] [facility] 4 12:44:49 Tremor 33549996 Active 2023 Mis Hall MA null, [facility] 4 14:17:28 Acute sinusiti s 40856449 Active 2023 Nalini ziegler RMA null, [facility] 4 18:02:23 Abdomina l wall pain 177845926 Active 2023 Sarath Joseph MD [address], [address], [place], [address] , [facility] 4 09:55:16 Bilatera l peripher al neuropat hy of lower limbs 81969438137 171814 Active 2024 Sarath Joseph MD [address], [address], [place], [address] , [facility] 5 12:43:15 Pleural effusion 49661020 Active 2024 JIM Cardoza [address], [address], [place], [address] , [facility] 5 11:11:01 Hematoma 158092426 Active 2024 JIM Cardoza [address], [address], [place], [address] , [facility] 5 11:13:04 Cardiome lazaro 0148721 Active 2024 JIM Cardoza [address], [place], [address] , [facility] 5 11:16:17 Biliary calculus 974554062 Active 2024 JIM Cardoza [address], [place], [address] , [facility] 5 11:16:38 Divertic ulosis of colon 239631989 Active 2024 JIM Cardoza [address], [address], [place], [address] , [facility] 5 11:17:29 Osteonec rosis of head of femur 951380302 Active 2024 JIM Cardoza [address], [place], [address] , [facility] 5 11:19:27 Sinus bradycar adwoa 48321242 Active 2024 Sarath Joseph MD [address], [address], [place], [address] , [facility] 5 12:07:31 Vascular insuffic iency 00644030 Active 2024 JIM Cardoza [address], [address], [place], [address] , [facility] 5 09:55:41 Cellulit is of right lower limb 30211661469 620706 Active 2024 JIM Cardoza [address], [place], [address] , [facility] 5 10:00:05 Peripher al arterial disease 191234359 Active 2024 JIM Cardoza [address], [place], [address] , [facility] 5 10:20:28 Cellulit is of left lower limb 74257956977 408030 Active 2024 Sarath Joseph MD [address], [address], [place], [address] , [facility] 5 11:48:12 Epigastr ic pain 32023865 Active 2024 Sarath Joseph MD [address], [facility] [address], [place], [address] , [email or web address] 5 10:21:39 Nausea and vomiting 89272201 Active 2024 Sarath Joseph MD [address], [facility] [address], [place], [address] , [email or web address] 5 10:24:07 Upper respirat ory tract finding 660271586 Active 2024 Sarath Joseph MD [address], [facility] [address], [place], [address] , [email or web address] 5 10:25:54 Notes:BACK/NECK PROBLEM, BLO OD CLOTS, USE OF [...] Name and Address Organization Details Recorded Time 5 Medicare Wellness CPT Code, subsequent completed Sydni Ferreira [email or web address] 04/10/2025 09:00:12 4 Medicare Wellness CPT Code, subsequent completed Amanda Denny RN [email or web address] 04/04/2024 16:25:31 4 Chronic care management services completed Judith Villanueva RN [email or web address] 01/18/2024 22:23:58 4 Wound Care-Podiatry completed Javy Arellano RN [email or web address] 11/22/2023 16:02:59 4 Wound Care-Podiatry completed Javy Arellano RN [place] [facility] 10/18/2023 12:57:15 4 Medicare Wellness CPT Code, subsequent completed Michaela Amezcua RN [email or web address] 10/12/2023 12:45:07 Carpal tunnel surgery completed Not Available [facility] 09/21/2022 04:43:22 Lasik completed Not Available [facility] 07/2022 04:43:22 Hernia Repair completed Not Available [facility] 09/21/2022 04:43:22 other completed Not Available [facility] 07/2022 04:43:22 Orthopedic Surgery completed Not Available [facility] 09/21/2022 04:43:22 Orthopedic Surgery completed Not Available [facility] 09/21/2022 04:43:22 Imaging Results None recorded. [...] Not Available furosemid e 40 mg tablet TAKE 1 TABLET BY MOUTH EVERY MORNING active Not Available Not Available No t Available atorvasta tin 40 mg tablet TAKE 1 TABLET BY MOUTH EVERY DAY 2024 active JOE 05/03/24 ok to rf Not Available Not Available Not Available primidone 50 mg tablet TAKE 1 [...] TAKE 1 CAPSULE BY MOUTH EVERY DAY 04/14 completed Not Available Not Available Not Available clobetaso l 0.05 % topical cream [...] tablet TAKE 1 TABLET BY MOUTH DAILY active Not Available Not Available No t Available warfarin 3 mg tablet 06/27 completed [...] n for injection in office 10/12 completed [facility]: 0003-049 11-10 Not Available Not Available Not Available hydrocodo [...] month by subcutan eous route. 2024 active [facility] # [id number] 01 ABN form signed & in chart / JS Not Available Not Available Not Available buspirone [...] Not Available Not Available No t Available ondansetr on 4 mg disintegr ating tablet Place 1 tablet 3 times a day by translin gual route as needed. 2024 active Not Available Not Available Not Avai lable fluticaso ne propionat e 50 mcg/actua tion nasal spray,elizabeth pension SHAKE LIQUID AND USE 2 SPRAYS IN EACH NOSTRIL EVERY DAY active Not Available Not Available No t Available cholecalc iferol (vitamin D3) 125 mcg (5,000 unit) capsule TK 1 C PO ONCE D 04/13 completed Not Available Not Available Not Available doxycycli ne hyclate 100 mg tablet Take 1 tablet twice a day by oral route for 7 days. 03/14 completed Not Available Not Available Not Available [...] administ ered by the provider 09/02 completed [facility]: 0409-427 6-17 Not Available Not Available Not Available Symbicort [...] Not Available Not Available Not Available Fluvirin 8081-7491 45 mcg (15 mcg x 3)/0.5 mL intramusc ular suspensio n active Not Available Not Available Not Available vitamin D3 125 mcg (5,000 unit)-fol ic acid 1 mg tablet Take 1 tablet every day by oral route. 04/14 completed Not Available Not Available Not Available Fluzone High-Dose 6117-3570 (PF) 180 mcg/0.5 mL intramusc ular syringe ADM 0.5ML IM UTD active Not Available Not Available No t Available triamcino lone 0.1 % topical ointment and dimethico ne 5 % topical cream 01/28 completed Not Available Not Available Not Available Fluad 2016- 65yr up(PF)45 mcg(15 mcgx3)/0. 5 mL intramusc ular syringe active Not Available Not Available Not Available Fluzone High-Dose (PF) 180 mcg/0.5 mL intramusc ular syringe active Not Available Not Available Not Available Breztri Aerospher e 160 mcg-9mcg- 4.8mcg/ac tuation HFA aerosol inhaler INHALE 2 PUFFS BY MOUTH TWICE DAILY active Not Available Not Available No t Available Vitals Date Recorded Body height Body mass index (BMI) Body weight Body temperature Oxygen saturation Oxygen saturation in Arterial blood by Pulse oximetry Heart rate Systolic And Diastolic Provider Name and Address Organization Details Last Updated DateTime 5 167.64 cm 29.4 kg/m2 92757.8 1 g 97.6 [degF] 95 % 95 % 67 /min 124/68 mm[Hg] Lily Arevalo r [email or web address] 5 11:39:16 Date Recorded Body height Body mass index (BMI) Body weight Oxygen saturation Oxygen saturation in Arterial blood by Pulse oximetry Heart rate Body temperature Systolic And Diastolic Provider Name and Address Organization Details Last Updated DateTime 5 167.64 cm 28.9 kg/m2 17553.0 3 g 90 % 90 % 78 /min 97.3 [degF] 118/76 mm[Hg] Lily Arevalo r [email or web address] 5 09:51:49 Date Recorded Body height Body mass index (BMI) Body weight Body temperature Heart rate Oxygen saturation Oxygen saturation in Arterial blood by Pulse oximetry Systolic And Diastolic Provider Name and Address Organization Details Last Updated DateTime 5 167.64 cm 28.9 kg/m2 99892.0 3 g 97.6 [degF] 78 /min 94 % 94 % 118/74 mm[Hg] Lily Arevalo r [email or web address] 5 11:16:33 Date Recorded Body height Body mass index (BMI) Body weight Body temperature Heart rate Oxygen saturation Oxygen saturation in Arterial blood by Pulse oximetry Systolic And Diastolic Provider Name and Address Organization Details Last Updated DateTime 5 167.64 cm 28.6 kg/m2 39365.8 5 g 97.8 [degF] 90 /min 95 % 95 % 118/78 mm[Hg] Lily Arevalo r [email or web address] 5 12:25:24 Date Recorded Body mass index (BMI) Body weight Body temperature Heart rate Oxygen saturation Oxygen saturation in Arterial blood by Pulse oximetry Systolic And Diastolic Provider Name and Address Organization Details Last Updated DateTime 5 25.8 kg/m2 16554.7 8 g 96.8 [degF] 93 /min 94 % 94 % 120/80 mm[Hg] SMILEY Parra [employer] [facility] 5 10:01:04 Date Recorded Body height Provider Name an d Address Organization Details Last Updated DateTime 05/07/2025 167.64 cm Lily NGUYEN - [facility] 05/07/2025 09:51:04 Social History Question Answer Notes LastModified by Organization Details LastModified Time Tobacco Smoking Status Former Smoker Quit in 2003 Not Available [employer] 09/21/2022 04:40:54 Do You Have An Advance Directive? No MIGRATION.0301 [id number] Information not available 09/21/2022 Are You Blind Or Do You Have Difficulty Seeing? No MIGRATION.0301 632123 Information not available 09/21/2022 What Is Your Level Of Caffeine Consumption? Moderate MIGRATION.0301 [id number] Information not available 09/21/2022 How Much Tobacco Do You Chew? None MIGRATION.0301 742457 Information not available 09/21/2022 Are You Deaf Or Do You Have Serious Difficulty Hearing? No MIGRATION.0301 559053 Information not available 09/21/2022 What Type Of Diet Are You Following? REGULAR MIGRATION.0301 [id number] Information not available 09/21/2022 Which Illicit Or Recreational Drugs Have You Used? None MIGRATION.0301 684889 Information not available 09/21/2022 Have There Been Any Changes To Your Family Or Social Situation? No MIGRATION.0301 307069 Information not available 09/21/2022 What Is The Fluoride Status Of Your Home? Fluoridated MIGRATION.0301 140522 Information not available 09/21/2022 When Did You Quit Smoking? 16+yearssincelastci mitzy Information not available 06/27/2023 Are There Any Guns Present In Your Home? No MIGRATION.0301 [id number] Information not available 09/21/2022 Do You Use Insect Repellent Routinely? No MIGRATION.0301 923708 Information not available 09/21/2022 Where Do You Live? [place] MIGRATION.0301 [id number] Information not available 09/21/2022 Are You Able To Care For Yourself? Yes [email or web address] Information not available 10/12/2023 Are You Blind Or Do Yo Have Difficulty Seeing? No [email or web address] Information not available 10/12/2023 Are You Deaf Or Do You Have Serious Difficulty Hearing? Yes [email or web address] Information not available 10/12/2023 Live Alone Of With Others? With Others [email or web address] Information not available 10/12/2023 What Was The Date Of Your Most Recent Tobacco Screening? 10/12/2023 [email or web address] Information not available 10/12/2023 What Is Your Current Pack Years? 30ormorepackyears MIGRATION.0301 311578 Information not available 09/21/2022 Do You Have Any Pets? Yes [email or web address] Information not available 10/12/2023 What Is Your Relationship Status? MIGRATION.0301 [id number] Information not available 09/21/2022 Do You Use Your Seat Belt Or Car Seat Routinely? Yes MIGRATION.0301 636001 Information not available 09/21/2022 Do You Have Smoke And Carbon Monoxide Detectors In Your Home? Yes MIGRATION.0301 244374 Information not available 09/21/2022 At What Age Did You Start Smoking Tobacco? 14 MIGRATION.0301 671651 Information not available 09/21/2022 Are You Passively Exposed To Smoke? No MIGRATION.0301 359972 Information not available 09/21/2022 Are There Any Smokers In Your House? No MIGRATION.0301 426277 Information not available 09/21/2022 How Much Tobacco Do You Smoke? 2 PPD MIGRATION.0301 549399 Information not available 09/21/2022 Do You Use Sunscreen Routinely? No MIGRATION.0301 672099 Information not available 09/21/2022 Have You Recently Traveled Abroad? No MIGRATION.0301 492284 Information not available 09/21/2022 Do You Have Difficulty Walking Or Climbing Stairs? Yes Gets Tired Quickly MIGRATION.0301 293895 Information not available 09/21/2022 Do You Have Any Dietary Restrictions? No MIGRATION.0301 692491 Information not available 09/21/2022 Sex: Male Functional Status Question Answer Note LastModified by Organizat ion Details LastModified Time What is your level of alcohol consumption? Occasional Quit in 2019 Information not available 06/27/2023 Do you have transportation difficulties? No MIGRATION.178630 3959 Information not available 09/21/2022 Are you able to walk independently without assistance or assistive devices? YESWOREST MIGRATION.568464 3311 Information not available 09/21/2022 Do you have difficulty doing errands alone? No MIGRATION.141057 5639 Information not available 09/21/2022 Are you able to care for yourself independently? Yes MIGRATION.788214 5046 Information not available 09/21/2022 What is your occupation? retired MIGRATION.500745 7689 Information not available 09/21/2022 Do you have difficulty dressing, bathing, grooming, or toileting? No MIGRATION.960465 4961 Information not available 09/21/2022 What is your exercise level? None MIGRATION.305781 8870 Information not available 09/21/2022 Mental Status Question Answer Note LastModified by Organizat ion Details LastModified Time Do you have difficulty concentrating, remembering or making decisions? No MIGRATION.[id number] 6 Information not available 09/21/2022 Family History Relationship Description Onset Age of this Age Resolved Age Notes LastModified by Organization Details LastModified Time Maternal Grandmother Heart disease MIGRATION.245 [id number] Not available 09/21/2022 04:43:26 Father Heart disease MIGRATION.472 [id number] Not available 09/21/2022 04:43:26 Father Essential hypertension MIGRATION.879 [id number] Not available 09/21/2022 04:43:26 Brother Diabetes mellitus MIGRATION.693 [id number] Not available 09/21/2022 04:43:26 Brother Depressive disorder MIGRATION.119 [id number] Not available 09/21/2022 04:43:26 Medical History Condition Response BLINDNESS N KIDNEY STONES N MRSA N CARPAL TUNNEL SYNDROME N LUNG DISEASE/DISORDER N HISTORY OF DRUG ABUSE N COPD N RADIATION / CHEMOTHERAPY N SPORTS INJURY N ANKLE PAIN N BLOOD DISEASES N SCHIZOPHRENIA N SHINGLES N SHOULDER PAIN N DEPRESSION (INCLUDING POST ) Y BOWEL PROBLEMS N STROKE/TIA N KNEE PAIN N ULCERS N BENIGN PROSTATIC HYPERPLASIA N OBESITY N GERD/NAUSEA N ANEURYSM Y URINARY/BLADDER/KIDNEY PROBLEMS Y CORONARY ARTERY DISEASE (CAD) N ADDICTION CONCERNS N ENDOMETRIOSIS N USE OF BLOOD THINNERS Y SKIN PROBLEMS Y EMPHYSEMA N GASTROINTESTINAL DISORDER N MUSCLE,JOINT OR BONE PROBLEMS N DVT N STOMACH ULCERS N GASTROINTESTINAL BLEEDING N BLOOD CLOTS Y ASTHMA N Abdominal Pain N USE OF NSAIDS N CONCUSSION OR SPINAL TRAUMA N ARTERIAL INSUFFICIENCY Y GI PROBLEMS N NEUROPATHY N AIDS/HIV N FRACTURES N HYPERTENSION N ELBOW PAIN N TOURETTE'S N Metal allergy N ANXIETY DISORDER N BLOOD TRANSFUSION N ANEMIA/BLOOD DISORDER N BIPOLAR DISORDER N BRONCHITIS N OSTEOARTHRITIS N TUBERCULOSIS N FOOT PROBLEM N HEART VALVE DISORDERS N SLEEP APNEA Y SOFT TISSUE INJURY N ALLERGIES/HAYFEVER N INFECTIOUS DISEASE N HEART ARRHYTHMIA N INSOMNIA Y RHEUMATOID ARTHRITIS N HIGH CHOLESTEROL / HYPERLIPIDEMIA Y EDEMA Y CHRONIC PAIN SYNDROME N CAROTID BLOCKAGE N BACK / NECK PROBLEMS Y HAVE YOU BEEN HOSPITALIZED OR SEEN IN [facility] ER IN THE PAST YEAR ? N BURSITIS N HERNIATED DISC N DIALYSIS N FIBROMYALGIA N OSTEOPOROSIS N ARTHRITIS Y NO SIGNIFICANT PAST MEDICAL HISTORY N PERIPHERAL NEUROPATHY N APPENDICITIS N DIABETES, TYPE N HEARTBURN / REFLUX N GI N AUTISM SPECTRUM DISORDER (ASD) N HEPATITIS / LIVER DISEASE N GOUT Y SLEEP DISORDER N ALZHEIMER'S DISEASE N HERPES N SEIZURES/EPILEPSY N HEADACHES/MIGRAINES Y VASCULAR DISEASE N Blood Disorder N HIP PAIN N DIZZINESS Y HEAD TRAUMA OR INJURY N HEART DISEASE/HEART PROBLEMS Y KIDNEY DISEASE Y MULTIPLE SCLEROSIS N CANCER: SPECIFY N CARDIAC ARRHYTHMIA N ANESTHESIA COMPLICATIONS N ATRIAL FIBRILLATION N Gall Stones N AUTOIMMUNE DISEASE N Immunizations Vaccine Type Date Status Note Provider Nam e and Address Organization Details Recorded Time Influenza, adjuvanted, trivalent, PF 7 completed FRAN Freire, [facility] 12/26/2023 16:45:30 Influenza, adjuvanted, quadrivalent, PF 2 completed FRAN Freire, [facility] 12/26/2023 16:45:30 COVID-19, mRNA, LNP-S, PF, 100 mcg/0.5mL dose or 50 mcg/0.25mL dose 2 completed FRAN Freire, [facility] 12/26/2023 16:45:30 Influenza, high-dose, trivalent, PF 8 completed FRAN Freire, [facility] 12/26/2023 16:45:30 Influenza, high-dose, trivalent, PF 6 completed FRAN Freire, [facility] 12/26/2023 16:45:30 Influenza, split virus, trivalent, PF 3 completed FRAN Freire, [facility] 12/26/2023 16:45:30 Influenza, split virus, trivalent, PF 5 completed FRAN Freire, [facility] 12/26/2023 16:45:30 Influenza, high-dose, trivalent, PF 4 completed Not Available [facility] 05/07/2025 09:50:27 COVID-19, mRNA, LNP-S, PF, maxx-sucrose, 30 mcg/0.3 mL 4 completed Not Available [facility] 05/07/2025 09:50:27 RSV, bivalent, protein subunit RSVpreF, diluent reconstituted, 0.5 mL, PF 4 completed Not Available [facility] 05/07/2025 09:50:27 influenza, unspecified formulation 8 completed Judith Villanueva RN null, [facility] 12/26/2023 16:45:30 influenza, unspecified formulation 7 completed Judith Villanueva RN null, [facility] 12/26/2023 16:45:30 Influenza, high-dose, trivalent, PF 6 completed Judith Villanueva RN null, [facility] 12/26/2023 16:45:30 Influenza, high-dose, trivalent, PF 5 completed Judith Villanueva RN null, [facility] 12/26/2023 16:45:30 COVID-19, mRNA, LNP-S, PF, 30 mcg/0.3 mL dose 1 completed Judith Villanueva RN null, [facility] 12/26/2023 16:45:30 COVID-19, mRNA, LNP-S, PF, 30 mcg/0.3 mL dose 1 completed Judith Villanueva RN null, [facility] 12/26/2023 16:45:30 COVID-19, mRNA, LNP-S, PF, 30 mcg/0.3 mL dose 1 completed Judith Villanueva RN null, [facility] 12/26/2023 16:45:30 Influenza, high-dose, quadrivalent, PF 1 completed Not Available [facility] 08/09/2023 00:38:07 Influenza, high-dose, quadrivalent, PF 0 completed Not Available [facility] 08/09/2023 00:38:07 pneumococcal polysaccharide PPV23 9 completed Not Available [facility] 08/09/2023 00:38:07 Pneumococcal conjugate PCV 13 7 completed Not Available [facility] 08/09/2023 00:38:07 Influenza, split virus, quadrivalent, preservative 9 completed Not Available [facility] 08/09/2023 00:38:07 Past Encounters Encounter ID Performer Location Encounter Start Date Encounter Closed Date Diagnosis/Indication Diagnosis SNOMED-CT Code Diagnosis ICD10 Code Diagnosis IMO Codes Diagnosis Note [id number] Sarath Joseph MD [facility] Internal Med [address] [facility] [place] [address] 12/01/2020 00:00:00 12/01/2020 16:44:47 [id number] Monster Bridges DPM [facility] [address] [place] [address] 12/23/2020 00:00:00 12/23/2020 12:59:07 [id number] Monster Bridges DPM [facility] [address] [place] [address] 12/30/2020 00:00:00 12/30/2020 12:01:19 [id number] Monster Bridges DPM [facility] [address] [place] [address] 01/06/2021 00:00:00 01/06/2021 15:58:57 [id number] Monster Bridges DPM [facility] [address] [place] [address] 01/13/2021 00:00:00 01/13/2021 13:56:25 [id number] Monster Bridges DPM [facility] [address] [place] [address] 01/20/2021 00:00:00 01/20/2021 12:35:06 [id number] Monster Bridges DPM [facility] [address] [place] [address] 01/27/2021 00:00:00 01/27/2021 12:37:26 [id number] Monster Bridges DPM [facility] [address] [place] [address] 02/03/2021 00:00:00 02/03/2021 13:47:59 [id number] Monster Bridges DPM [facility] [address] [place] [address] 02/10/2021 00:00:00 02/10/2021 15:06:35 [id number] Monster Bridges DPM [facility] [address] [place] [address] 02/17/2021 00:00:00 02/18/2021 08:01:22 [id number] Monster Bridges DPM [facility] [address] [place] [address] 02/24/2021 00:00:00 03/09/2021 14:53:04 [id number] Monster Bridges DPM [facility] [address] [place] [address] 03/03/2021 00:00:00 03/03/2021 14:25:46 [id number] Sarath Joseph MD [facility] [address] [address] 04/13/2021 00:00:00 04/13/2021 15:02:32 [id number] Sarath Joseph MD [facility] [address] [address] 05/13/2021 00:00:00 05/13/2021 17:26:10 [id number] Nikko Vidal MD [facility] [address] [address] 05/26/2021 00:00:00 05/26/2021 16:01:25 [id number] MD EDNA [facility] [address] [address] 09/15/2021 00:00:00 09/15/2021 14:27:59 [id number] MD CLAUDIA [facility] [address] [facility] [place] [address] 10/13/2021 00:00:00 10/13/2021 14:31:49 [id number] MD CLAUDIA [facility] [address] [facility] [place] [address] 11/15/2021 00:00:00 11/15/2021 17:21:15 [id number] MD CLAUDIA [facility] Internal [facility] [address] [facility] [place] [address] 02/14/2022 00:00:00 02/14/2022 14:52:22 [id number] MD CLAUDIA [facility] [place] [address] [place] [address] 02/21/2022 00:00:00 02/21/2022 15:26:22 [id number] MD CLAUDIA [facility] [place] [address] [place] [address] 02/28/2022 00:00:00 02/28/2022 14:35:20 [id number] MD CLAUDIA [facility] Internal [facility] [address] [facility] [place] [address] 03/01/2022 00:00:00 03/01/2022 16:42:57 [id number] MD CLAUDIA [facility] [place] [address] [place] [address] 03/07/2022 00:00:00 03/07/2022 17:26:02 [id number] MD EDNA [facility] [place] [address] [place] [address] 03/14/2022 00:00:00 03/14/2022 16:39:16 [id number] MD CLAUDIA [facility] [address] [facility] [place] [address] 03/31/2022 00:00:00 03/31/2022 15:42:21 [id number] Onel Singer MD [facility] [address] [facility] [address] [place] [address] 04/15/2022 00:00:00 04/15/2022 15:30:58 [id number] Sarath Joseph MD [facility] [address] [address] 05/23/2022 00:00:00 05/23/2022 14:48:10 [id number] MD EDNA [facility] [address] [address] 06/23/2022 00:00:00 06/23/2022 17:23:19 [id number] Sarath Joseph MD [facility] [address] [address] 08/18/2022 00:00:00 08/18/2022 15:25:46 [id number] Sarath Joseph MD [facility] [address] [address] 09/08/2022 00:00:00 09/08/2022 14:25:17 [id number] Sarath Joseph MD [facility] [address] [address] 10/10/2022 14:06:21 10/10/2022 14:23:34 Memory impairment 864157417 R41.3 Erectile dysfunction 860 918485 F52.21 [id number] Sarath Joseph MD [facility] [address] [address] 12/21/2022 14:30:39 12/21/2022 15:30:51 Erectile dysfunction 008976432 F52.21 meds did not help Essential hypertension 48806212 I10 under control Chronic ob structive pulmonary disease 85328652 J44.9 stable, no meds needed Abdominal aortic aneurysm 158273718 I71.40 s/p repair Edema 891174411 R60.9 stable Gout 95536449 M10.9 no flare up Hypothyroidism 55244150 E03.9 stable Kidney disease 49126485 N08 better Osteoarthritis 892451985 M19.90 otc Peripheral vascular disease 481640098 I73.9 on eliquis Thrombocyt openic disorder 628284295 D69.6 stable Prediabetes 982493245 R7 3.03 watching diet Adult heal th examination 561382481 Z00.00 colonoscop y 5+ yrs ago per patientPSA - 09/2020- DUEPrevnar - 09/14/2016 Pneumovax - 03/20/19Inf luenza vacc- 2021 (per pt)COVID- Has had both covid vacc and plus the booster Essential tremor 6830249 09 G25.0 try meds Depression screening 171 877880 Z13.31 Body mass index 25-29 - overweight 499071278 Z68.27 diet and exercise discussed Dementia 11065111 F03.90 on meds stable Depressive disorder 3548 9007 F32.A better Heart murmur 30963224 R0 1.1 Anxiety disorder 0608555 06 F41.9 better Aortic valve stenosis 60 862898 I35.0 s/p replacemen t Screening for malignant neoplasm of prostate 393217116 Z12.5 [id number] Sarath Joseph MD [facility] [address] [facility] [place] [address] 04/20/2023 14:16:23 04/20/2023 14:56:36 Essential hypertension 71457439 I10 under control Chronic ob structive pulmonary disease 05580263 J44.9 stable, no meds needed Abdominal aortic aneurysm 217860124 I71.40 s/p repair Erectile dysfunction 860 661027 F52.21 meds did not help Edema 153756812 R60.9 stable Gout 44936490 M10.9 no flare up Hypothyroidism 84549938 E03.9 stable Kidney disease 69357484 N08 better Osteoarthritis 004843470 M19.90 otc Peripheral vascular disease 263291479 I73.9 on eliquis Thrombocyt openic disorder 542188630 D69.6 stable Prediabetes 961979205 R7 3.03 watching diet Adult heal th examination 718004222 Z00.00 Colonoscop y 5+ yrs ago per patientPSA - re vnar - 09/14/2016 Pneumovax 03/20/19Inf luenza vacc- 2022 (per pt)COVID- Has had both covid vacc and plus the booster Essential tremor 6214893 09 G25.0 try meds Dementia 24713868 F03.90 on meds stable Depressive disorder 3548 9007 F32.A better Heart murmur 95599098 R0 1.1 Anxiety disorder 0262126 06 F41.9 better Aortic valve stenosis 60 612519 I35.0 s/p replacemen t Headache 09119687 R51.9 Pain in bi lateral feet 2501541474 9880779 M79.085 [id number] Monster Bridges DPM [facility] [place] [address] [facility] [address] [place] [address] 06/27/2023 15:11:32 07/06/2023 10:22:06 Neuropathy 762214866 G62.9 obtain EMGfollow- up testing possible referral to Neurology [id number] Sarath Joseph MD [facility] [address] [facility] [place] [address] 08/03/2023 11:32:19 08/03/2023 12:42:14 Essential hypertension 42893986 I10 under control Chronic ob structive pulmonary disease 43080226 J44.9 stable, no meds needed Abdominal aortic aneurysm 224102021 I71.40 s/p repair Erectile dysfunction 860 181445 F52.21 meds did not help Edema 276884320 R60.9 stable Gout 23742142 M10.9 no flare up Hypothyroidism 03969731 E03.9 stable Kidney disease 08727392 N08 GFR 49 Osteoarthritis 074077948 M19.90 knees getting worse Peripheral vascular disease 993298287 I73.9 on eliquis Thrombocyt openic disorder 590098583 D69.6 stable Prediabetes 949658621 R7 3.03 watching diet Essential tremor 7905493 09 G25.0 meds not helping, start new meds Dementia 41728309 F03.90 on meds stable Depressive disorder 3548 9007 F32.A better Heart murmur 77593173 R0 1.1 Anxiety disorder 9221903 06 F41.9 better Aortic valve stenosis 60 019710 I35.0 s/p replacemen t Adult heal th examination 576408307 Z00.00 Colonoscop y 5+ yrs ago per patientPSA - 3Pre vnar 09/14/2016 Pneumovax 03/20/19Inf luenza vacc- 2022 (per pt)COVID- Has had both covid vacc and plus the booster Headache 95540195 R51.9 Atrial fibrillation 4943 6004 I48.91 in sinus Neck pain 69795291 M54.2 [id number] Monster Bridges DPM [facility] [address] [place] [address] 08/08/2023 15:28:11 08/08/2023 16:03:39 Neuropathy 456478436 G62.9 Nerve studies reviewed with the patientref erred to Neurologyr ecommend daily foot care and exam to prevent wounds infectionc ontinue supportive shoe gearawaiti ng referral with orthopedic s [id number] Onel Singer MD [facility] [address], [address] [place] [address] 08/24/2023 11:31:20 08/24/2023 12:47:11 Pain of bilateral knee joints 7115672017 25383 M25.290 [id number] Sarath Joseph MD [facility] [address] [facility] [place] [address] 10/12/2023 12:01:47 10/12/2023 13:05:35 Adult health examination 488878040 Z00.00 Colonoscop y 5+ yrs ago per patientPSA - re vnar 09/14/2016 Pneumovax 03/20/19Inf luenza vacc- 2022 (per pt)COVID- Has had both covid vacc and plus the booster Screening for disorder 228550291 Z13.9 Open wound of right lower leg 6731115515 1566013 S81.801A Fatigue 06081436 R53.83 R53.0 R53.1 R53.81 Prediabetes 865404465 R7 3.03 watching diet Screening for malignant neoplasm of prostate 316508980 Z12.5 Allergic rhinitis 492704 04 J30.9 [id number] Monster Bridges DPM [facility] [address] [place] [address] 10/18/2023 12:37:11 10/18/2023 16:08:47 Peripheral venous insufficiency 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 I87.2 obtain non-invasi ve vascular testing Venous sta sis ulcer with edema of right lower leg 8186317426 6096157 L97.919 Culture performed todayrecom mend chronic compressio n therapycom pression dressings applied todayconti nue Betadine wet-to-dry dressings with compressio n dailyfollo w-up in 3 weeks Acute deep vein thrombosis of lower limb 3506040977 08 I82.4Z1 r/o DVT [id number] Monster Bridges DPM [facility] [address] [place] [address] 11/22/2023 15:26:49 11/22/2023 16:21:33 Peripheral venous insufficiency 72762262 I87.2 obtain non-invasi ve vascular testing Venous sta sis ulcer with edema of right lower leg 4970503858 8348778 L97.919 Healed and chronic compressio n therapypat ient denies ultrasound follow-up as needed [id number] Sarath Joseph MD [facility] [address] [facility] [place] [address] 12/04/2023 15:19:58 12/04/2023 16:06:29 Essential hypertension 62142003 I10 under control Chronic ob structive pulmonary disease 53405716 J44.9 stable, no meds needed Abdominal aortic aneurysm 692752188 I71.40 s/p repair Erectile dysfunction 860 974297 F52.21 meds did not help Edema 062197146 R60.9 stable Gout 89959405 M10.9 no flare up Hypothyroidism 90283066 E03.9 stable Kidney disease 28952792 N08 GFR 49 Osteoarthritis 466895222 M19.90 knees getting worse Peripheral vascular disease 306680061 I73.9 on eliquis Thrombocyt openic disorder 400021061 D69.6 stable Prediabetes 884170361 R7 3.03 watching diet Essential tremor 0705334 09 G25.0 meds not helping, start new meds Dementia 25661992 F03.90 on meds stable Depressive disorder 3548 9007 F32.A better Heart murmur 50155866 R0 1.1 Anxiety disorder 0046997 06 F41.9 better Aortic valve stenosis 60 657990 I35.0 s/p replacemen t Adult heal th examination 830096026 Z00.00 Colonoscop y 5+ yrs ago per patientPSA - re vnar - 09/14/2016 Pneumovax - 03/20/19Inf luenza vacc- 2022 (per pt)COVID- Has had both covid vacc and plus the booster Headache 60329383 R51.9 Atrial fibrillation 4943 6004 I48.91 in sinus Neck pain 73083010 M54.2 [id number] Sarath Joseph MD [facility] Internal Med [address] [place] [address] 12/08/2023 11:53:19 12/08/2023 12:43:01 Vitamin B12 deficiency (non anemic) 89929308 E53.8 [id number] Sarath Joseph MD [facility] Internal Med [address] [place] [address] 12/26/2023 16:26:17 04/01/2024 18:21:45 Essential hypertension 63876042 I10 Atrial fibrillation 4943 6004 I48.91 Insomnia 642403697 G47.0 0 [id number] Sarath Joseph MD [facility] Internal Med [address] [place] [address] 02/07/2024 11:44:05 02/07/2024 12:01:03 Vitamin B12 deficiency (non anemic) 97982505 E53.8 [id number] Sarath Joseph MD [facility] Internal Med [address] [place] [address] 04/04/2024 15:14:18 04/04/2024 16:36:21 Essential hypertension 09264647 I10 under control Chronic ob structive pulmonary disease 50925202 J44.9 stable, no meds needed Abdominal aortic aneurysm 844660676 I71.40 s/p repair Erectile dysfunction 860 094477 F52.21 meds did not help Edema 493919352 R60.9 stable Gout 19139480 M10.9 no flare up Hypothyroidism 12897830 E03.9 stable Kidney disease 54419976 N08 improved Osteoarthritis 501262079 M19.90 getting worse Peripheral vascular disease 038759524 I73.9 on eliquis Thrombocyt openic disorder 502710153 D69.6 stable Prediabetes 038805095 R7 3.03 watching diet Essential tremor 5978947 09 G25.0 meds not helping, start new meds Dementia 56638995 F03.90 stable Depressive disorder 3548 9007 F32.A no meds needed Heart murmur 05021008 R0 1.1 Anxiety disorder 4143456 06 F41.9 better Aortic valve stenosis 60 623507 I35.0 s/p replacemen t Adult heal th examination 973079873 Z00.00 Colonoscop y 5+ yrs ago per patientPSA - 10/13/2023 Prevnar 13- 09/14/2016 Pneumovax - 03/20/19Inf luenza vacc- 2022 (per pt)COVID- Has had both covid vacc and plus the booster Atrial fibrillation 4943 6004 I48.91 in sinus Neck pain 54671088 M54.2 heating pad, tylenol Psoriasis 8087207 L40.9 Screening for disorder 052658385 Z13.9 Vitamin B1 2 deficiency (non anemic) 37782099 E53.8 [id number] Sarath Joseph MD [facility] Internal Med [facility] [address] [facility] [address] 05/03/2024 12:24:46 05/03/2024 14:03:16 Vitamin B12 deficiency (non anemic) 46022725 E53.8 [id number] Sarath Joseph MD Ja_[facility] Internal Med [facility] [address] [facility] [place] [address] 06/04/2024 09:16:32 06/04/2024 09:56:59 Abdominal wall pain 856080726 R10.9 apply heat, keep taking tylenol,ca ll if not better in 2 weekstake precaution s [id number] Sarath Joseph MD [facility] Internal Med [address] [place] [address] 08/12/2024 10:45:04 08/12/2024 11:49:17 Essential hypertension 22890467 I10 under control Chronic ob structive pulmonary disease 40125614 J44.9 does not want meds Abdominal aortic aneurysm 637687780 I71.40 s/p repair Erectile dysfunction 860 916692 F52.21 meds did not help Edema 554280224 R60.9 stable Gout 70774214 M10.9 no flare up Hypothyroidism 70690796 E03.9 stable Kidney disease 25783297 N08 improved Osteoarthritis 277919566 M19.90 getting worse Peripheral vascular disease 683503652 I73.9 on eliquis Thrombocyt openic disorder 632417050 D69.6 stable Prediabetes 405621597 R7 3.03 watching diet Essential tremor 3060160 09 G25.0 add propranolo l Dementia 49308815 F03.90 stable Depressive disorder 3548 9007 F32.A no meds needed Heart murmur 76531843 R0 1.1 Anxiety disorder 5740705 06 F41.9 under control Aortic valve stenosis 60 325799 I35.0 s/p replacemen t Adult heal th examination 896288074 Z00.00 Colonoscop y 5+ yrs ago per patientPSA - 10/13/2023 Prevnar - 09/14/2016 Pneumovax - 03/20/19Inf luenza vacc- 2023 (per pt)COVID- Has had both covid vacc and plus the booster Atrial fibrillation 4943 6004 I48.91 in sinus Neck pain 56647406 M54.2 heating pad, tylenol Psoriasis 3995390 L40.9 [id number] Sarath Joseph MD S_[facility] Internal Med [address] [place] [address] 12/10/2024 11:57:09 12/10/2024 12:52:42 Essential hypertension 53247973 I10 under control Chronic ob structive pulmonary disease 21747271 J44.9 try Suze, marie, concerned about the cost Abdominal aortic aneurysm 536940842 I71.40 s/p repair Erectile dysfunction 860 126512 F52.21 meds did not help Edema 962700041 R60.9 stable Gout 76597410 M10.9 no recent flare up Hypothyroidism 96712961 E03.9 stable Kidney disease 96627491 N08 improved Osteoarthritis 813518264 M19.90 getting worse Peripheral vascular disease 656771001 I73.9 on eliquis Thrombocyt openic disorder 311907695 D69.6 stable Prediabetes 691775213 R7 3.03 watching diet Essential tremor 7498047 09 G25.0 better Dementia 72022492 F03.90 stable Depressive disorder 3548 9007 F32.A no meds needed Heart murmur 90700247 R0 1.1 Anxiety disorder 5460847 06 F41.9 under control Aortic valve stenosis 60 154890 I35.0 s/p replacemen t Adult heal th examination 244868897 Z00.00 Colonoscop y 5+ yrs ago per patientPSA - 10/13/2023 Prevnar - 09/14/2016 Pneumovax - 03/20/19Inf luenza vacc- 2023 (per pt)COVID- Has had both covid vacc and plus the booster Atrial fibrillation 4943 6004 I48.91 in sinus Neck pain 91089785 M54.2 heating pad, tylenol Psoriasis 8981010 L40.9 must be 2 60 gram tubes please Vitamin B1 2 deficiency (non anemic) 85402980 E53.8 Bilateral peripheral neuropathy of lower limbs 3111362687 4816274 G57.93 95944722 [id number] Sarath Joseph MD [facility] Internal Med [address] [place] [address] 01/06/2025 10:19:41 01/06/2025 11:47:19 History of fall 811052150 Z91.81 456685 Refusal of fall risk assessment and home health/soc ial work advice at this time Pleural effusion 5395612 8 J90 129966 refused hospital admission Hematoma 254496688 T14.8 XXA 787763 located on forehead- no evidence of brain bleed according to recorrds and scan. Biliary calculus 4666032 03 K80.20 9505505 No acute concerns or symptoms at this time Diverticul osis of colon 080417352 K57.30 81209 No acute concerns or symptooms at this time. Osteonecro sis of head of femur 734332104 M87.789 3206471 Discussed importance of compliance and advised to see ortho doctor [id number] Sarath Joseph MD [facility] Internal [facility] [address] [facility] [place] [address] 01/14/2025 11:20:33 01/14/2025 13:59:40 Vitamin B12 deficiency (non anemic) 20994060 E53.8 Hematoma 255832033 T14.8 XXA 194771 slowly improving Sinus bradycardia 292655 05 R00.1 3919 stop propranolo lrestart if shakiness gets worse Edema of l ower extremity 495973802 R60.0 56218 ^ Furosemide to 40 mg bid x 1 week then cut down to once a day [id number] Sarath Joseph MD [facility] Internal [facility] [address] [facility] [place] [address] 02/06/2025 09:43:48 02/06/2025 11:04:23 Cellulitis of right lower limb 4933878805 1453440 L03.617 9265023 Take medication as directed. Make sure to keep area clean and dry. Continue to keep area clean and wrapped. Elevate legs and watch salt intake at this time to avoid additional swelling. Wear compressio n socks as discussed. Discussed risk vs benefits associated with blood thinner medication s and use of antibiotic s. Vascular insufficiency 29225957 I87.2 92616 [id number] Sarath Joseph MD [facility] Internal [place] [address] [facility] [place] [address] 02/13/2025 11:02:01 02/13/2025 11:52:42 Cellulitis of left lower limb 1998005431 1699256 L03.036 8358494 better Cobalamin deficiency 190 622495 E53.8 138194 Vascular insufficiency 71660484 I87.2 10842 seeing cardiology [id number] Sarath Joseph MD [facility] Internal Med [address] [place] [address] 04/14/2025 12:15:06 04/14/2025 14:04:46 Adult health examination 273864471 Z00.00 Colonoscop y 5+ yrs ago per patientPSA - 10/13/2023 Prevnar 13- 09/14/2016 Pneumovax - 03/20/19Inf luenza vacc- 2023 (per pt)COVID- Has had both covid vacc and plus the booster Gout 73137568 M10.9 no recent flare up Hypothyroidism 15854824 E03.9 stable TSH Kidney disease 36506454 N08 improved, stay hydrated Osteoarthritis 859589244 M19.90 otc tylenol Peripheral vascular disease 553664052 I73.9 on eliquis Thrombocyt openic disorder 693993693 D69.6 stable Prediabetes 767295640 R7 3.03 watching diet Essential tremor 0024109 09 G25.0 meds help Dementia 45029752 F03.90 restart Depressive disorder 3548 9007 F32.A handout submitted Heart murmur 70664888 R0 1.1 gets echo Anxiety disorder 7995449 06 F41.9 under control Aortic valve stenosis 60 243894 I35.0 s/p replacemen t Atrial fibrillation 4943 6004 I48.91 in sinus Psoriasis 3076614 L40.9 meds help Vitamin B1 2 deficiency (non anemic) 17467281 E53.8 Biliary calculus 0671308 03 K80.20 0898765 No acute concerns Diverticul osis of colon 978370149 K57.30 34967 No acute concerns or symptooms at this time. Osteonecro sis of head of femur 384844741 M87.029 1634533 high risk of fx, was supposed to see ortho Edema of l ower extremity 001490954 R60.0 89096 restart Furosemide , he has stopped taking it [id number] Sarath Joseph MD [facility] Internal Med [address] [place] [address] 05/07/2025 09:47:14 05/07/2025 10:36:35 Epigastric pain 22613630 R10.13 80037 he continue to have nausea and unable to eat, needs EGD and colonoscop y Nausea and vomiting 1693 1999 R11.2 4101104781 Upper resp iratory tract finding 378146154 R09.89 92345028 viralc, otc discussed Vitamin B1 2 deficiency (non anemic) 17223607 E53.8 Goals Section Goal Description Progress Status Start [...] None Recorded Advance Directives Directive N: Payers Insurance Date Sequence Insurance Name Policy Number Policy Early Covered Member ID Early Member ID Guarantor Name 05/12/2025 1 [facility] - MEDICARE SOLUTIONS - MEDICARE COMPLETE (MEDICARE REPLACEMENT HMO) [id number] Franki Yusuf [id number] Franki Yusuf Notes Date Note Type Note Provider Name and Address Organization Details Recorded Time 01/14/2025 text/html Pt Is here today for his left leg weeping/ swollen. On Furosemide 40 mg qdBruises are getting slowly betterIN the ER , had sinus bradycardia, on propranolol for essential tremor.Pt went to [facility] for a fall he had on the 02 of january in his bathroom he was disoriented and doesn't remember how it happeneddenies dizziness, cp or sobGood appetitenow taking Tylenol for the pain*Gave him his b12 shot and documented* Sarath Joseph MD [address], [facility], [place], [address], [employer] 01/14/2025 12:15:12 02/06/2025 text/html patient is a 74y/o male who is here for cellulitis on both legs at this time. He reports they have been this way since November. He states he keeps his legs clean and uses neosporin ointment on wounds and they are still worse. He reports he used to see vascular surgery but has not seen in a very long time. He denies fever, numbness/tingling, N/V, streaking, or dizziness at this time. Referral for wound care/vascular surgery JIM Cardoza [address], [facility], [place], [address], [employer] 02/06/2025 10:41:22 02/13/2025 text/html ROS as noted in the HPI pt is here for a 1 month f/ufall last month.left leg weeping/ swollen. On Furosemide 40 mg qdBruises are getting slowly betterfinished abx seen cardiology for PVD and venous insuff, getting more testing done Sarath Joseph MD [address], [address], [place], [address], [employer] 02/13/2025 11:50:04 04/14/2025 text/html He is here today for his routine 4month follow up, Compliant to meds. PT IS FASTING ( [employer] ) Hypertension- controlled with medsMeds- Metoprolol ER 25mg dailyCOPD- no cough or wheezing, some sob on walking, Breztri not covered, will try symbicortEdema-stabl e with medsMeds- Furosemide 40 mg dailyCKD -has not f/u with nephrology , GFR over 60, Not seeing Dr Cadena any moreCAD- s/p stent, dr Jimenez, no symptoms Afib- in sinus, on Eliquis AAA repair and had open heart surgery. s/p aortic valve replacement(05/2022) PVD- s/p bypass , stents 2016, pain in the the legs on long walksMeds- Eliquis 5mg bidTremors- takes meds and still gets shakiness, propranolol was stopped due to bradycardiaMeds- Carbidopa 25mg-Levodopa 100mg TID Hypothyroidism- on meds, under controlMeds- Levothyroxine 25mcg dailyGout- uric acid was high, on allopurinol, came down to nlMeds- Allopurinol 300 mg dailySleep apnea- had sleep study at [facility] has a cpap but admits he does not use it. He will reconsider using it.Arthritis- knees getting worse, still gets pain, has not seen improvement, does not want any more, does not want surgeryh/o Anemia- last hb 10.8Psoriasis- Elbows and back, using meds, has seen derm , gets better when use medsMeds- Clobetasol creamEx-smoker, quit 2013,Prediabetes- watching diet, A1C was 5.1 on 10/12/24h/o alcoholism, has quit , drinks beer some time ED- hard to get erection and to maintain it, sildenafil did not help and does not need any meds Dementia- SLOWLY GETTING WORSE,MME- was memory is not effecting him driving.Lives with wifeMeds- Donepezil 10mg qd, WAS STOPPED BY HIM, GOING TO ESTART Hyperlipidemia- on meds, labs 08/17Meds- Atorvastatin 40mg daily Depression- no more symptoms, he stopped taking escitalopram Psoriasis- Uses Clobetasol cream as needed B 12 def- on monthly b12 shots Sarath Joseph MD [address] [facility], [address], [place], [address], [facility] [employer] [facility] [employer] 04/14/2025 14:42:19 05/07/2025 text/html ROS as noted in the HPI Pt is here today for a ER follow up , record reviewed and discussed.Went to [facility] for Weakness and nausea, diarrhea is better. Appetite is poor. Has lost weight.still has mid abd pain and nausea.BM is back to nl Sinus is draining and he constantly coughing up ( clear phlegm ). Just not feeling well and thinks he should have been admitted. Also needs his B12 injection today Sarath Joseph MD [address] [facility], [address], [place], [address], [facility] [employer] [facility] [employer] 05/07/2025 10:41:30
--- OUTSIDE RECORDS SUMMARY | 2025-05-15 02:08 | XMS_ITS | Clinical Summary ---
Author Organization [facility] Address [facility] [place] [address] Care Team Providers Care Timber Watchman Name Role Phone Davy Joseph MD Primary Care Provider [phone] Allergies No known active allergies Medications allopurinol (ZYLOPRIM) 300 MG tablet Take 1 tablet (300 mg total) by mouth daily. Active ELIQUIS 5 MG tablet Take 1 tablet (5 mg total) by mouth 2 (two) times daily. Active atorvastatin (LIPITOR) 40 MG tablet Take 1 tablet (40 mg total) by mouth daily. Active carbidopa-levod opa (SINEMET) 25-100 MG tablet Take 1 tablet by mouth 3 (three) times daily. Takes at 0700, 1500 and 2200 Active donepezil (ARICEPT) 10 MG Tab Take 1 tablet (10 mg total) by mouth daily. Active furosemide (LASIX) 40 MG tablet Take 1 tablet (40 mg total) by mouth every morning. Active levothyroxine (SYNTHROID) 25 MCG tablet Take 1 tablet (25 mcg total) by mouth daily. Active acetaminophen (TYLENOL) 325 MG tablet Take 2 tablets (650 mg total) by mouth every 8 (eight) hours. Active vitamin D3 (CHOLECALCIFERO L) 125 mcg Tab Take 1 tablet (125 mcg total) by mouth daily. Active Encounters Date Type Department Care Team Description 04/29/2025 Telephone [facility] - [address], [address] [place] [address] Rolf Malloy MD Appointment Request 04/28/2025 1:48 PM CDT - 04/28/2025 8:45 PM CDT Emergency [facility] [place] [address] Job Ford MD Generalized Weakness Discharge Disposition: Home or Self Care (Routine Discharge) 04/28/2025 Travel from Last 3 Months Social History Tobacco Use Types Packs/Day Years Used Date Smoking Tobacco: Never Smokeless Tobacco: Never Tobacco Cessation:Counseling Given: Not Answered Alcohol Use Standard Drinks/Week Comments Not Currently 0 (1 standard drink = 0.6 oz pur e alcohol) Sex and Gender Information Value Date Recorded Sex Assigned at Male 01/02/2025 5:42 PM CDT Legal Sex Male 5:20 PM CDT Gender Identity Not on file Sexual Orientation Not on file Last Filed Vital Signs Vital Sign Reading Time Taken Comments Blood Pressure 133/81 04/28/2025 8:01 PM CDT Pulse 82 04/28/2025 8:01 PM CDT Temperature 36.6 C (97.8 F) 04/28/2025 1:01 PM CDT Respiratory Rate 16 04/28/2025 8:01 PM CDT Oxygen Saturation 97% 04/28/2025 8:01 PM CDT Inhaled Oxygen Concentration - - Weight 74.8 kg (165 lb) 04/28/2025 1:01 PM CDT Height 177.8 cm (5' 10) 04/28/2025 1:01 PM CDT Body Mass Index 23.68 04/28/2025 1:01 PM CDT Plan of Treatment Health Maintenance Due Date Last Done Comments Colorectal Cancer Screening Colonoscopy (10 Years) 1950 Hepatitis C 10/25/1967 DTaP, Tdap and Td Vaccines (1 - Tdap) 1968 Zoster Vaccines (1 of 2) 10/25/1999 PHQ-2 (Physician [place]) 07/24/2024 COVID-19 Vaccine ( - season) 2025 04/16/2024, 03/16/2022, 05/04/2021, Additional history exists Influenza Adult (#1) 2025 04/16/2024, 05/13/2021, 05/16/2019, Additional history exists Pneumococcal Vaccine: 50+ Years Completed 03/20/2019, 09/14/2016 RSV Immunization or 60+ Years Completed 04/16/2024 Hepatitis A Vaccines Aged Out No long er eligible based on patient's age to complete this topic Meningococcal B Vaccine Aged Out No l onger eligible based on patient's age to complete this topic Meningococcal Vaccine Aged Out No tonny chaya eligible based on patient's age to complete this topic RSV Immunizations Under 20 Months Aged Out No longer eligible based on patient's age to complete this topic Procedures Procedure Name Priority Date/Time Associated Diagnosis Comments HC URINALYSIS AUTO W/O MICRO STAT 04/28/2025 7:45 PM CDT LACTIC ACID W REFLEX (SEPSIS) TIMED 04/28/2025 4:31 PM CDT XR CHEST PORTABLE STAT 04/28/2025 2:3 4 PM CDT CORONAVIRUS (COVID 19) STAT 2:17 PM CDT CK (CPK) STAT 04/28/2025 2:17 PM CDT LACTIC ACID W REFLEX (SEPSIS) STAT 04/28/2025 2:17 PM CDT TSH W/REFLEX STAT 04/28/2025 2:17 PM CDT MAGNESIUM STAT 04/28/2025 2:17 PM CDT LIPASE STAT 04/28/2025 2:17 PM CDT TROPONIN, QUANT STAT 04/28/2025 2:17 PM CDT COMPREHENSIVE METABOLIC PANEL STAT 04/28/2025 2:17 PM CDT CBC W/DIFF AUTOMATED STAT 04/28/2025 2:17 PM CDT ECG 12-LEAD Routine 04/28/2025 1:[address] ABD+PEL W CON STAT 04/28/2025 1:40 PM CDT from Last 3 Months Results * (ABNORMAL) URINALYSIS (04/28/2025 7:45 PM CDT) SPECIMEN TYPE URINE CLEAN CATCH 04/28/2025 7:45 PM CDT [facility] COLOR (U) YELLOW 04/28/2025 8:34 PM CDT [facility] TRANSPARENCY CLEAR 04/28/2025 8:34 PM CDT [facility] SPECIFIC GRAVITY (U) >1.050(H) 1.001 - 1.030 04/28/2025 8:34 PM CDT [facility] U PH 6.0 5.0 - 9.0 04/28/2025 8:34 PM CDT [facility] LEUKOCYTES (U) NEGATIVE NEGATIVE 04/28/2025 8:34 PM CDT [facility] NITRITES NEGATIVE NEGATIVE 04/28/2025 8:34 PM CDT [facility] PROTEIN RANDOM (U) 10 <30 MG/DL 04/28/2025 8:34 PM CDT [facility] GLUCOSE (U) NORMAL NORMAL MG/DL 04/28/2025 8:34 PM CDT [facility] KETONES MG/DL (U) 40(A) NEGATIVE MG/DL 04/28/2025 8:34 PM CDT [facility] UROBILINOGEN 2.0(A) NORMAL MG/DL 04/28/2025 8:34 PM CDT [facility] BILIRUBIN (U) NEGATIVE NEGATIVE MG/DL 04/28/2025 8:34 PM CDT [facility] BLOOD (U) NEGATIVE NEGATIVE 04/28/2025 8:34 PM CDT [facility] URINE SPECIMEN OBTAINED BY CLEAN CATCH PROCEDURE / Unknown 04/28/2025 7:45 PM CDT Saulo Romero FIXED INCOME DIRECTOR URINE ORDERABLES Final Result Performing Organization Address City/[facility] Co de Phone Number [facility] [address] [place] [address], [place] [phone] * LACTIC ACID W REFLEX (SEPSIS) (04/28/2025 4:31 PM CDT) Only the most recent of2 resultswithin the time period is included. LACTIC ACID VENOUS 1.5 0.4 - 2.0 MMOL/L 04/28/2025 5:04 PM CDT [facility] 04/28/2025 4:31 PM CDT Saulo Zuleima Moshe FIXED INCOME DIRECTOR LABORATORY Final Result Performing Organization Address [facility] Co de Phone Number [facility] [address] [place] [address], [place] [phone] * XR CHEST PORTABLE (04/28/2025 2:34 PM CDT) Anatomical Region Laterality Modality Chest Radiographic Porsche ging 04/28/2025 2:4 8 PM CDT Impressions 04/28/2025 2:49 PM CDT IMPRESSION: 1) Chronic appearing volume loss with pleural and parenchymal scarring in the right lung base and in the right apex very similar in appearance to previous study. 2. No new acute pulmonary parenchymal opacity is demonstrated. Ordered By: SAULO ROMERO Interpreted By: Francisco Sanchez MD, 04/28/2025 2:48 PM Narrative 04/28/2025 2:49 PM CDT [facility] [address] [place], [place] [address] Examination: XR CHEST PORTABLE Exam time: 04/28/2025 1:21 PM Clinical history: Tachycardia Comparison: 01/02/2025 Technique: AP chest Findings: Patient rotated distorting the appearance the mediastinum. Post midline sternotomy changes are noted with prosthetic aortic valve. Heart size is at the upper limits of normal to slightly enlarged similar to previous study. Thoracic aorta is mildly ectatic and tortuous. No significant pulmonary vascular congestion. There is chronic volume loss and pleural/parenchymal scarring in the right lung base and in the right apical region very similar to previous study. There is no new focal pulmonary parenchymal consolidation. No pleural effusion. No hyperinflation. Procedure Note Francisco Sanchez MD - 04/28/2025 [facility] [address] [place], [place] [address] Examination: XR CHEST PORTABLE Exam time: 04/28/2025 1:21 PM Clinical history: Tachycardia Comparison: 01/02/2025 Technique: AP chest Findings: Patient rotated distorting the appearance the mediastinum. Postmidline sternotomy changes are noted with prosthetic aortic valve. Heartsize is at the upper limits of normal to slightly enlarged similar toprevious study. Thoracic aorta is mildly ectatic and tortuous. Nosignificant pulmonary vascular congestion. There is chronic volume lossand pleural/parenchymal scarring in the right lung base and in the rightapical region very similar to previous study. There is no new focalpulmonary parenchymal consolidation. No pleural effusion. Nohyperinflation. IMPRESSION: 1) Chronic appearing volume loss with pleural and parenchymal scarring inthe right lung base and in the right apex very similar in appearance toprevious study. 2. No new acute pulmonary parenchymal opacity is demonstrated. Ordered By: SAULO ROMERO Interpreted By: Francisco Sanchez MD, 04/28/2025 2:48 PM Saulo Romero FIXED INCOME DIRECTOR GENERAL IMAGING Final Result * CORONAVIRUS (COVID 19) (04/28/2025 2:17 PM CDT) CORONAVIRUS SARS COV 2 RNA NEGATIVE NEGATIVE 04/28/2025 2:39 PM CDT [facility] Comment: NEGATIVE RESULTS DO NOT RULE OUT COVID 19 AND SHOULD NOT BE USED THE SOLE BASIS FOR TREATMENT OR PATIENT MANAGEMENT DECISIONS, INCLUDING INFECTION CONTROL DECISIONS. NEGATIVE RESULTS SHOULD BE CONSIDERED IN THE CONTEXT OF A PATIENT'S RECENT EXPOSURES, HISTORY AND THE PRESENCE OF CLINICAL SIGNS AND SYMPTOMS CONSISTENT WITH COVID 19. THE ID NOW COVID-19 2.0 TEST HAS BEEN AUTHORIZED BY THE FDA UNDER EAU FOR USE BY AUTHORIZED LABORATORIES. PERFORMED BY NUCLEIC ACID AMPLIFICATION FOR MOLECULAR QUALITATIVE DETECTION OF SARS-COV-2. SPECIMEN TYPE NASAL 04/28/2025 2:21 PM CDT [facility] NASAL STRUCTURE / Unknown 04/28/2025 2:17 PM CDT Saulo Romero FIXED INCOME DIRECTOR MICROBIOLOGY - GENERAL ORDERAB LES Final Result [facility] [address] [place] [address], [place] [phone] * TSH W/REFLEX (04/28/2025 2:17 PM CDT) Pathologist [facility] TSH 1.220 0.358 - 3.74 uIU/ML 04/28/2025 3:03 PM CDT [facility] Comment: HIGH DOSES OF BIOTIN MAY INTERFERE WITH THIS TEST RESULT. CORRELATION TO CLINICAL HISTORY AND PRESENTATION RECOMMENDED. FREE T4 NOT INDICATED 04/28/2025 2:17 PM CDT us Saulo Romero NP LABORATORY Final Result [facility] [address] [place] [address], [place] [phone] * (ABNORMAL) COMPREHENSIVE METABOLIC PANEL (04/28/2025 2:17 PM CDT) [facility] GLUCOSE 84 70 - 99 MG/DL 04/28/2025 3:03 PM CDT [facility] BUN 25(H) 7 - 18 MG/DL 04/28/2025 3:03 PM CDT [facility] CREATININE S/P/B 1.62(H) 0.7 - 1.3 MG/DL 04/28/2025 3:03 PM CDT [facility] SODIUM S/P/B 135(L) 136 - 145 MMOL/L 04/28/2025 3:03 PM CDT [facility] POTASSIUM S/P/B 3.4(L) 3.5 - 5.1 MMOL/L 04/28/2025 3:03 PM CDT [facility] CHLORIDE S/P/B 93(L) 97 - 115 MMOL/L 04/28/2025 3:03 PM CDT [facility] CO2 30.2 21 - 32 MMOL/L 04/28/2025 3:03 PM CDT [facility] CALCIUM S/P/B 9.5 8.5 - 10.1 MG/DL 04/28/2025 3:03 PM CDT [facility] BILIRUBIN TOTAL S/P/B 1.5(H) 0.2 - 1.2 MG/DL 04/28/2025 3:03 PM CDT [facility] Comment: THIS ASSAY IS NOT RECOMMENDED FOR PATIENTS UNDERGOING TREATMENT WITH ELTROMBOPAG DUE TO THE POTENTIAL FOR FALSELY ELEVATED RESULTS. TOTAL PROTEIN S/P/B 7.2 6.4 - 8.2 G/DL 04/28/2025 3:03 PM CDT [facility] ALBUMIN S/P/B 3.9 3.4 - 5.0 G/DL 04/28/2025 3:03 PM CDT [facility] AST 20 15 - 37 U/L 04/28/2025 3:03 PM CDT [facility] ALT 10(L) 16 - 60 U/L 04/28/2025 3:03 PM CDT [facility] ALKALINE PHOSPHATASE S/P/B 114 50 - 136 U/L 04/28/2025 3:03 PM CDT [facility] ANION GAP 11.8(H) 2 - 10 MMOL/L 04/28/2025 3:03 PM CDT [facility] BUN CREATININE RATIO 15.4 6 - 26 04/28/2025 3:03 PM CDT [facility] A/G RATIO 1.2 1.0 - 2.0 RATIO 04/28/2025 3:03 PM CDT [facility] GFR ESTIMATE 44(L) >90 ML/MIN/1.7 3 M2 04/28/2025 3:03 PM CDT [facility] Comment: NOTE: eGFR is not calculated for patients <18 years of age or gender unknown. This is an estimated GFR calculation using the new CKD EPI creatinine equation without race and so does not require a correction factor for race. This estimated GFR should not be used for calculating drug doses. 04/28/2025 2:17 PM CDT us Saulo Romero NP LABORATORY Final Result [facility] [address] [place] [address], [place] [phone] * (ABNORMAL) CBC W/DIFF AUTOMATED (04/28/2025 2:17 PM CDT) WBC 6.59 4.5 - 11.0 x10'3/uL 04/28/2025 2:50 PM CDT [facility] RBC 4.65(L) 4.70 - 6.10 x10'6/uL 04/28/2025 2:50 PM CDT [facility] HGB 14.6 14.0 - 18.0 G/DL 04/28/2025 2:50 PM CDT [facility] HCT 43.5 43.0 - 54.0 % 04/28/2025 2:50 PM CDT [facility] MCV 93.5 80.0 - 94.0 FL 04/28/2025 2:50 PM CDT [facility] MCH 31.4(H) 27.0 - 31.0 PG 04/28/2025 2:50 PM CDT [facility] MCHC 33.6 32.0 - 36.0 G/DL 04/28/2025 2:50 PM CDT [facility] RDW 14.8(H) 11.5 - 14.5 % 04/28/2025 2:50 PM CDT [facility] PLT 105(L) 130 - 400 x10'3/uL 04/28/2025 2:50 PM CDT [facility] MPV 12.4(H) 9.3 - 12.2 FL 04/28/2025 2:50 PM CDT [facility] DIFFERENTIAL TYPE AUTOMATED DIFFERENTIAL 04/28/2025 2:50 PM CDT [facility] NEUTROPHILS % 73.2 % 04/28/2025 2:50 PM CDT [facility] LYMPHOCYTES % 15.8 % 04/28/2025 2:50 PM CDT [facility] MONOCYTES % 8.3 % 04/28/2025 2:50 PM CDT [facility] EOSINOPHILS 1.8 % 04/28/2025 2:50 PM CDT [facility] BASOPHILS 0.3 % 04/28/2025 2:50 PM CDT [facility] IMMATURE GRANS % 0.6 % 04/28/20 25 2:50 PM CDT [facility] ABS. NEUTROPHILS 4.82 1.80 - 7.70 x10'3/uL 04/28/2025 2:50 PM CDT [facility] ABS. LYMPHOCYTES 1.04 1.00 - 4.80 x10'3/uL 04/28/2025 2:50 PM CDT [facility] ABS. MONOCYTES 0.55 0.30 - 0.82 x10'3/uL 04/28/2025 2:50 PM CDT [facility] ABS. EOSINOPHILS 0.12 0.04 - 0.54 x10'3/uL 04/28/2025 2:50 PM CDT [facility] ABS. BASOPHILS 0.02 0.01 - 0.08 x10'3/uL 04/28/2025 2:50 PM CDT [facility] ABS. IMMATURE GRANULOCYTES 0.04 0.00 - 0.49 x10'3/uL 04/28/2025 2:50 PM CDT [facility] 04/28/2025 2:17 PM CDT Saulo Romero NP LABORATORY Final Result [facility] [address] [place] [address], [place] [phone] * TROPONIN, QUANT (04/28/2025 2:17 PM CDT) TROPONIN I HIGH SENSITIVITY 23 <79 ng/L 04/28/2025 3:03 PM CDT [facility] Comment: HIGH DOSES OF BIOTIN, TROPONIN-SPECIFIC AUTOANTIBODIES, AND ANTIBODY THERAPY CONTAINING HAMA MAY INTERFERE WITH THIS TEST RESULT. CORRELATION TO CLINICAL HISTORY AND PRESENTATION RECOMMENDED. 04/28/2025 2:17 PM CDT us Saulo Romero FIXED INCOME DIRECTOR LABORATORY Final Result [facility] [address] [place] [address], [place] [phone] * (ABNORMAL) MAGNESIUM (04/28/2025 2:17 PM CDT) MAGNESIUM 1.7(L) 1.8 - 2.4 MG/DL 04/28/2025 3:03 PM CDT [facility] 04/28/2025 2:17 PM CDT us Saulo Romero FIXED INCOME DIRECTOR LABORATORY Final Result Performing Organization Address City/[facility]/ZIP Co de Phone Number [facility] [address] [place] [address], [place] [phone] * LIPASE (04/28/2025 2:17 PM CDT) LIPASE 38 13 - 75 UNITS/L 04/28/2025 3:03 PM CDT [facility] 04/28/2025 2:17 PM CDT us Saulo Romero FIXED INCOME DIRECTOR LABORATORY Final Result Performing Organization Address City/[facility]/ZIP Co de Phone Number [facility] [address] [place] [address], [place] [phone] * CK (CPK) (04/28/2025 2:17 PM CDT) CPK 67 35 - 232 U/L 04/28/2025 3:03 PM CDT [facility] 04/28/2025 2:17 PM CDT Saulo Romero NP LABORATORY Final Result [facility] [address] [place] [address], * ECG 12 lead (04/28/2025 1:59 PM CDT) 04/28/2025 1:59 PM CDT Narrative [facility] - 04/29/2025 8:43 AM CDT [address] Test Date: 2025-04-28 Pat Name: FRANKI YUSUF Department: 41 Room: EXAM21 Gender: Male Tape Controlled Machine Stitcher: [id number] : 1950 Requested By: SAULO ROMERO Order Number: [id number] Reading MD: Chloe Stewart Measurements Intervals [place] Rate: 104 P: 0 LA: 0 QRS: -38 QRSD: 113 T: 75 QT: 357 QTc: 471 Interpretive Statements Baseline artifact limits interpretation Likely ATRIAL FIBRILLATION WITH RAPID VENTRICULAR RESPONSE LOW QRS VOLTAGE IN EXTREMITY LEADS [QRS DEFLECTION < 0.5 mV IN LIMB LEADS] PATTERN CONSISTENT WITH PULMONARY DISEASE MODERATE INTRAVENTRICULAR CONDUCTION DELAY [110+ ms QRS DURATION] Compared to ECG 01/02/2025 18:28:16 Sinus bradycardia no longer present Procedure Note Chloe Stewart MD - 04/29/[address] Test Date: 2025-04-28 Pat Name: FRANKI YUSUF Department: 41 Room: EXAM21 Gender: Male Tape Controlled Machine Stitcher: [id number] : 1950 Requested By: SAULO ROMERO Order Number: [id number] Reading MD: Chloe Stewart Measurements Intervals [place] Rate: 104 P: 0 LA: 0 QRS: -38 QRSD: 113 T: 75 QT: 357 QTc: 471 Interpretive Statements Baseline artifact limits interpretation Likely ATRIAL FIBRILLATION WITH RAPID VENTRICULAR RESPONSE LOW QRS VOLTAGE IN EXTREMITY LEADS [QRS DEFLECTION < 0.5 mV IN LIMBLEADS] PATTERN CONSISTENT WITH PULMONARY DISEASE MODERATE INTRAVENTRICULAR CONDUCTION DELAY [110+ ms QRS DURATION] Compared to ECG 01/02/2025 18:28:16 Sinus bradycardia no longer present us Saulo Romero FIXED INCOME DIRECTOR ECG ORDERABLES Final Result [facility] * CT ABD+PEL W IV CON ONLY (04/28/2025 1:40 PM CDT) Anatomical Region Laterality Modality Abdomen Computed Tomogra phy 04/28/2025 2:49 PM CDT Impressions 04/28/2025 2:55 PM CDT IMPRESSION: 1) No acute inflammatory change, abscess nor ascites in abdomen/pelvis. 2. No evidence of mechanical bowel obstruction or perforation. 3. No evidence of ureteral stone nor hydronephrosis on either side. 4. Cholelithiasis with no secondary findings of cholecystitis. 5. Chronic volume loss pleural and parenchymal scarring in the right lung base unchanged from previous study. Ordered By: SAULO ROMERO Interpreted By: Francisco Sanchez MD, 04/28/2025 2:49 PM Narrative 04/28/2025 2:55 PM CDT [facility] [address] [place], [place] [address] Examination: CT ABD+PEL W CON Exam time: 04/28/2025 1:30 PM Clinical history: Diarrhea, tachycardia Comparison: 01/02/2025 Technique: Axial images obtained from xiphoid process pubic symphysis with intravenous injection of 100 mL Isovue 370 contrast using low-dose CT technique. Sagittal and coronal reconstruction. Findings: Visualized portions of the lung bases demonstrate chronic atelectasis/fibrosis in the right lung base. Similar in appearance to the previous study. Left lung base is unremarkable. The liver is normal in size. No significant focal intrahepatic lesion. There is evidence of cholelithiasis with no secondary findings of cholecystitis. No biliary duct dilatation. The spleen, pancreas, and the adrenal glands are unremarkable. The kidneys demonstrate no acute perirenal inflammatory stranding or fluid. No evidence of ureteral stone nor hydronephrosis on either side. No evidence to suggest solid renal mass lesion. There is no acute inflammatory change, abscess nor ascites. No evidence of mechanical bowel obstruction or perforation. No significant lymphadenopathy is demonstrated. There is evidence of AAA with previous endovascular stent graft repair. The [place] aneurysm sac has a maximum dimension of 5.9 x 5.2 cm which is very similar to the previous study. There is no definite evidence to suggest active endoleak. The IVC is unremarkable. There is been previous stenting of the origins of the SMA, celiac trunk and renal arteries. CT PELVIS: No pelvic mass or adenopathy. No acute inflammatory change, abscess nor ascites. Diffuse atherosclerotic vascular calcification. Procedure Note Francisco Sanchez MD - 04/28/[address] [address] Examination: CT ABD+PEL W CON Exam time: 04/28/2025 1:30 PM Clinical history: Diarrhea, tachycardia Comparison: 01/02/2025 Technique: Axial images obtained from xiphoid process pubic symphysis withintravenous injection of 100 mL Isovue 370 contrast using low-dose CTtechnique. Sagittal and coronal reconstruction. Findings: Visualized portions of the lung bases demonstrate chronicatelectasis/fibrosis in the right lung base. Similar in appearance to theprevious study. Left lung base is unremarkable. The liver is normal in size. No significant focal intrahepatic lesion.There is evidence of cholelithiasis with no secondary findings ofcholecystitis. No biliary duct dilatation. The spleen, pancreas, and the adrenal glands are unremarkable. The kidneys demonstrate no acute perirenal inflammatory stranding orfluid. No evidence of ureteral stone nor hydronephrosis on either side. Noevidence to suggest solid renal mass lesion. There is no acute inflammatory change, abscess nor ascites. No evidence ofmechanical bowel obstruction or perforation. No significantlymphadenopathy is demonstrated. There is evidence of AAA with previousendovascular stent graft repair. The [place] aneurysm sac has a maximumdimension of 5.9 x 5.2 cm which is very similar to the previous study.There is no definite evidence to suggest active endoleak. The IVC isunremarkable. There is been previous stenting of the origins of the SMA,celiac trunk and renal arteries. CT PELVIS: No pelvic mass or adenopathy. No acute inflammatory change,abscess nor ascites. Diffuse atherosclerotic vascular calcification. IMPRESSION: 1) No acute inflammatory change, abscess nor ascites in abdomen/pelvis. 2. No evidence of mechanical bowel obstruction or perforation. 3. No evidence of ureteral stone nor hydronephrosis on either side. 4. Cholelithiasis with no secondary findings of cholecystitis. 5. Chronic volume loss pleural and parenchymal scarring in the right lungbase unchanged from previous study. Ordered By: SAULO ROMERO Interpreted By: Francisco Sanchez MD, 04/28/2025 2:49 PM Saulo Romero FIXED INCOME DIRECTOR CT Final Result from Last 3 Months Insurance [facility] Care Teams Timber Watchman Relationship Specialty Start Date End Date Davy Joseph MD [address] [place] [id number] PCP - General INTERNAL MEDICINE 01/02/25
[2025-05-15 12:25] VITALS: BP 113/56; PULSE 90; RESP 18; TEMP 35.9; O2SAT 95; BMI 22.5
[2025-05-15] MEDS: LACTATED RINGERS 1,000 ML 150 ML IV CONT (12:54)
--- NOTE | 2025-05-15 12:58 | WPDANESEPPF ---
Anes - Initial Pre Proc Eval Procedure: Operation Date: 05/15/25 13:30 Proposed Procedures p EGD & Diagnostic Colonoscopy - Mahesh Mg MD Date/Time: 05/15/25 12:58 Surgeon: Mahesh Mg MD Pre Op Diagnosis: Epigastric pain Patient Data Age: 74 Gender: M Height: 1.78 m Weight: 71.2 kg Last Vital Signs Temp 96.6 F L 05/15/25 12:25 Pulse 90 05/15/25 12:25 Resp 18 05/15/25 12:25 BP 113/56 L 05/15/25 12:25 Pulse Ox 95 05/15/25 12:25 O2 Del Method Room Air 05/15/25 12:25 Allergies Allergy/AdvReac Type Severity Reaction Status Date / Time No Known Allergies Allergy Mild Verified 05/15/25 12:35 Home Medications ?Medication ?Instructions ?Recorded ?Confirmed ?Type allopurinol 300 mg tablet 300 mg PO DAILY 12/11/23 05/15/25 History apixaban 5 mg tablet (Eliquis) 5 mg PO BID 12/11/23 05/15/25 History atorvastatin 40 mg tablet 40 mg PO DAILY 12/11/23 05/15/25 History carbidopa 10 mg-levodopa 100 mg 1 tablet PO QHS 12/11/23 05/09/25 History tablet cholecalciferol (vitamin D3) 25 25 mcg PO DAILY 12/11/23 05/09/25 History mcg (1,000 unit) capsule furosemide 40 mg tablet 40 mg PO QAM 12/11/23 05/15/25 History levothyroxine 25 mcg capsule 25 mcg PO DAILY 12/11/23 05/15/25 History carbidopa 25 mg-levodopa 100 mg 1 tablet PO TID 05/09/25 05/15/25 History tablet clobetasol 0.05 % topical cream 1 applic topical BID PRN rash 05/09/25 05/09/25 History cyanocobalamin (vitamin B-12) 1,000 mcg IM MONTHLY 05/09/25 05/09/25 History 1,000 mcg/mL injection solution Patient hx anesthesia problems: none Family hx anesthesia problems: none Results Review: All pre-operative results and documents have been reviewed as part of the pre-operative evaluation. [facility] Past Medical History Medical History Heart disease Hypertension Thyroid disorder Surgical History Surgical History History of hernia repair History of carpal tunnel release of both wrists History of knee surgery bilateral History of heart bypass surgery Social History Social History Smoking status: Former smoker Alcohol intake: former Alcohol use details: occasional Substance use: current Substance use type: marijuana Other substance usage details: 3XWEEK Do You Feel Safe in your Home?: Yes Lack of Transportation: No Lack of Food: Never True Current Housing: Decline to Answer Concerned About Future Housing: No Difficulty Paying Gas/Electric Bills: No Difficulty Paying for Meds: No Currently Unemployed: No Education: Decline to Answer Difficulty w/ Childcare or Family Care: Decline to Answer Living arrangements: with family Occupation/Education: retired Gender identity (if verbalized by the patient): Male Spiritual care concerns: No Anes - Eval Final PreProcedure Day of Procedure 05/15/25 12:58 Patient weight: normal Lungs: normal air movement Airway: Mallampati scale class II Neurological: alert and oriented Last oral intake: >/= 8 hours ASA classification: IV Emergent: no Anesthetic plan: proceed Anesthesia type and monitoring: general GIVS and standard monitoring Results Review: All pre-operative results and documents have been reviewed as part of the pre-operative evaluation. COPD, hx of SATHYA/bipap, s/p PTCA 2019 RCA and LAD, hx of Aortic babita/root repair, AAA repair without rupture. Most recent ECHO without . Informed Consent: The patient's anesthetic plan and its attendant risks and benefits were discussed with the patient/family/POA. Questions were solicited and answers provided to the satisfaction of the patient/family/POA.
--- NOTE | 2025-05-15 13:14 | PM.HPGS ---
History of Present Illness History of Present Illness Consent: Risks, benefits, and alternatives have been discussed and questions answered. Patient agrees to proceed with procedure. Chief complaint: Epigastric pain Narrative: Franki Yusuf is a 74 year old male here for first egd and colonoscopy, about 5 weeks of anorexia with loss of appetite, some lower abdominal pain, no nausea or dysphagia. First week had diarrhea but controlled with imodium. This has caused weight loss, at bedside, no recent CT scan Review of Systems Review of Systems: All systems reviewed & are unremarkable except as noted in HPI and below PMFSH Past Medical History Medical History (Updated 05/15/25 @ 13:15 by Mahesh Mg MD) Anorexia Weight loss Heart disease Hypertension Thyroid disorder Surgical History Surgical History History of hernia repair History of carpal tunnel release of both wrists History of knee surgery bilateral History of heart bypass surgery Social History Social History Smoking status: Former smoker Alcohol intake: former Alcohol use details: occasional Substance use: current Substance use type: marijuana Other substance usage details: 3XWEEK Do You Feel Safe in your Home?: Yes Lack of Transportation: No Lack of Food: Never True Current Housing: Decline to Answer Concerned About Future Housing: No Difficulty Paying Gas/Electric Bills: No Difficulty Paying for Meds: No Currently Unemployed: No Education: Decline to Answer Difficulty w/ Childcare or Family Care: Decline to Answer Living arrangements: with family Occupation/Education: retired Gender identity (if verbalized by the patient): Male Spiritual care concerns: No Meds Home Medications and Allergies Home Medications ?Medication ?Instructions ?Recorded ?Confirmed ?Type allopurinol 300 mg tablet 300 mg PO DAILY 12/11/23 05/15/25 History apixaban 5 mg tablet (Eliquis) 5 mg PO BID 12/11/23 05/15/25 History atorvastatin 40 mg tablet 40 mg PO DAILY 12/11/23 05/15/25 History carbidopa 10 mg-levodopa 100 mg 1 tablet PO QHS 12/11/23 05/09/25 History tablet cholecalciferol (vitamin D3) 25 25 mcg PO DAILY 12/11/23 05/09/25 History mcg (1,000 unit) capsule furosemide 40 mg tablet 40 mg PO QAM 12/11/23 05/15/25 History levothyroxine 25 mcg capsule 25 mcg PO DAILY 12/11/23 05/15/25 History carbidopa 25 mg-levodopa 100 mg 1 tablet PO TID 05/09/25 05/15/25 History tablet clobetasol 0.05 % topical cream 1 applic topical BID PRN rash 05/09/25 05/09/25 History cyanocobalamin (vitamin B-12) 1,000 mcg IM MONTHLY 05/09/25 05/09/25 History 1,000 mcg/mL injection solution Allergies Allergy/AdvReac Type Severity Reaction Status Date / Time No Known Allergies Allergy Mild Verified 05/15/25 12:35 Vital Signs Vital Signs - 24 hr 05/15/25 12:25 Temperature 96.6 F L Pulse Rate 90 Respiratory Rate 18 Blood Pressure 113/56 L Pulse Oximetry 95 Oxygen Delivery Room Air Exam Const: General: cooperative, comfortable, alert and awake HENMT: Head: normal to inspection Assessment and Plan Assessment and plan (1) Weight loss: Code(s): R63.4 - Abnormal weight loss Status: Acute Assessment and Plan: egd and colonoscopy if no findings then will get CT scan to check for malignancy along with blood work (2) Anorexia: Code(s): R63.0 - Anorexia Status: Acute
--- NOTE | 2025-05-15 13:28 | S_PTH ---
PATIENT: Franki Yusuf LOC: [facility]#:[id number] AGE/SX: 74/M ROOM: RE05/15/[address]: Mahesh Mg MD : 1950 BED: DIS: 05/15/2025 SPEC #: [id number] RECD: 05/15/25 14:26 STATUS: GORDON ABDUL #: [id number] ROSSANA: 05/15/25 13:[address]: Mahesh Mg DEPT: [facility] Surgical RECD BY: Karol Quinn ENTERED: 05/15/25 14:26 SP TYPE: Surgical OTHR DR: Alfred Rowe, DELIVERY DRIVER/SUPERVISOR Tissues: A - Gastric Biopsy B - Small Bowel Bx C - Colon Polypectomy D - Colon Polypectomy E - Colon Polypectomy Procedures: Hematoxylin and Eosin Stain Gross and Microscopic Level 4
--- NOTE | 2025-05-15 13:28 | SUR.OPER ---
EGD ended at 1322, colon began at 1327
[2025-05-15 13:45] VITALS: BP 108/54; PULSE 79; RESP 24; O2SAT 100
[2025-05-15 13:55] VITALS: BP 107/53; PULSE 78; RESP 23; O2SAT 100
[2025-05-15 14:05] VITALS: BP 106/56; PULSE 70; RESP 22; O2SAT 97
== END 2025-05-15 14:30 | disposition home or self-care (01) ==
PROVIDERS: PCP Nurse Practitioner Family; Referring Provider Internal Medicine; Visit Provider Internal Medicine Gastroenterology
PROC: 0DJ08ZZ Inspection of Upper Intestinal Tract, Via Natural or Artificial Opening Endoscopic (ICD-10-PCS; CPT 45378; principal; 2025-05-15 13:30)
DX: D12.2 Benign neoplasm of ascending colon (principal); D12.0 Benign neoplasm of cecum; K63.5 Polyp of colon; K64.8 Other hemorrhoids; K57.30 Diverticulosis of large intestine without perforation or abscess without bleeding; K29.70 Gastritis, unspecified, without bleeding; I11.9 Hypertensive heart disease without heart failure; K31.89 Other diseases of stomach and duodenum; I51.9 Heart disease, unspecified; E07.9 Disorder of thyroid, unspecified; F12.90 Cannabis use, unspecified, uncomplicated; J44.9 Chronic obstructive pulmonary disease, unspecified; G47.33 Obstructive sleep apnea (adult) (pediatric); Z99.89 Dependence on other enabling machines and devices; Z79.01 Long term (current) use of anticoagulants; Z98.890 Other specified postprocedural states; Z95.1 Presence of aortocoronary bypass graft; Z87.891 Personal history of nicotine dependence; Z86.79 Personal history of other diseases of the circulatory system
CPT/HCPCS: 43239; 45380; 45385; 88305; J2003; J2704; J7120